=== PATIENT | female | born 1955 | race Two or more races ===

== ENCOUNTER → 2024-07-26 | Outpatient (CLI) | payer OTHER, SELFPAY ==
[2024-07-26 08:41] LABS: Eosinophils # (Auto) 0.1 Thou/mm3 (0.0-0.5); Hematocrit 22.3 % (36.0-46.0); Immature Granulocytes Auto 0.01 Thou/mm3 (0.00-0.00); Mean Corpuscular HGB Conc 28.7 g/dl (31.0-37.0); Mean Corpuscular Volume 73 fL (80-100); Monocytes # (Auto) 0.5 Thou/mm3 (0.0-0.8); Monocytes % (Auto) 9 % (0-12); Platelet Count 211 Thou/mm3 (140-440); RDW Standard Deviation 48.3 fL (36.4-46.3); Red Blood Count 3.05 Miln/mm3 (4.00-5.20)
[2024-07-26 08:43] LABS: Basophils # (Auto) 0.1 Thou/mm3 (0.0-0.2); Basophils % (Auto) 2 % (0-2.5); Eosinophils % (Auto) 3 % (0-10); Immature Granulocytes % (Auto) 0 % (0-0); Lymphocytes # (Auto) 1.6 Thou/mm3 (1.0-4.8); Lymphocytes % (Auto) 32 % (10-50); Neutrophils # (Auto) 2.8 Thou/mm3 (1.8-7.7); Neutrophils % (Auto) 55 % (37-80); Nucleated Red Blood Cell % 0 /100 WBC (0)
[2024-07-26 08:54] LABS: Alanine Aminotransferase 14 U/L (10-49); Albumin/Globulin Ratio 1.5 (1.2-2.2); Alkaline Phosphatase 127 U/L (46-116); Anion Gap 9 (7-16); Aspartate Amino Transferase 22 U/L (0-34); BUN/Creatinine Ratio 18 Ratio (12-20); Bilirubin,Total 0.9 mg/dL (0.3-1.2); Blood Urea Nitrogen 18 mg/dL (9-23); Calcium 8.8 mg/dL (8.3-10.6); Calcium (Corrected) 8.8 mg/dL (8.5-10.1); Carbon Dioxide 24.5 mMol/L (20.0-31.0); Chloride 105 mMol/L (98-107); Globulin 2.7 gm/dL (2.3-3.5); Glucose 143 mg/dL (74-106); Osmolality,Calculated 279 (275-295); Potassium 4.2 mMol/L (3.4-5.1); Sodium 138 mMol/L (136-145); Total Protein 6.7 gm/dL (5.7-8.2); eGFR > 60 See Note
[2024-07-26 08:58] LABS: Hemoglobin 6.4 g/dL (12.0-16.0)
== END | disposition home or self-care (01) ==
PROVIDERS: PCP Nurse Practitioner Family; Referring Provider Physician Assistant; Visit Provider Physician Assistant
DX: C50.412 Malignant neoplasm of upper-outer quadrant of left female breast (principal)
CPT/HCPCS: 36415; 80053; 85025

== ENCOUNTER 2024-07-27 06:58 | Outpatient (RCR) | payer OTHER, SELFPAY | END 2024-07-30 23:59 | disposition home or self-care (01) | LOC: SCTC 06:58 | PROVIDERS: PCP Nurse Practitioner Family; Referring Provider Nurse Practitioner Family; Visit Provider Internal Medicine Hematology & Oncology | DX: D50.9 Iron deficiency anemia, unspecified (principal); Z85.3 Personal history of malignant neoplasm of breast; Z90.12 Acquired absence of left breast and nipple; M85.88 Other specified disorders of bone density and structure, other site | CPT/HCPCS: 36415; 36430; 86850; 86870; 86900; 86901; 86921; 86922; 86923; P9016 ==

== ENCOUNTER → 2024-08-26 | Outpatient (CLI) | payer OTHER, SELFPAY ==
[2024-08-26 09:17] LABS: Basophils # (Auto) 0.1 Thou/mm3 (0.0-0.2); Basophils % (Auto) 2 % (0-2.5); Eosinophils # (Auto) 0.2 Thou/mm3 (0.0-0.5); Eosinophils % (Auto) 3 % (0-10); Hematocrit 28.9 % (36.0-46.0); Immature Granulocytes % (Auto) 0 % (0-0); Immature Granulocytes Auto 0.01 Thou/mm3 (0.00-0.00); Immature Reticulocyte Fraction 24.8 % (3.0-15.9); Lymphocytes # (Auto) 1.6 Thou/mm3 (1.0-4.8); Lymphocytes % (Auto) 33 % (10-50); Mean Corpuscular HGB Conc 29.1 g/dl (31.0-37.0); Mean Corpuscular Hemoglobin 23.7 pg (25.0-35.0); Mean Corpuscular Volume 82 fL (80-100); Monocytes # (Auto) 0.4 Thou/mm3 (0.0-0.8); Monocytes % (Auto) 9 % (0-12); Neutrophils # (Auto) 2.4 Thou/mm3 (1.8-7.7); Neutrophils % (Auto) 52 % (37-80); Nucleated Red Blood Cell % 0 /100 WBC (0); Platelet Count 263 Thou/mm3 (140-440); RDW Standard Deviation 62.4 fL (36.4-46.3); Red Blood Count 3.54 Miln/mm3 (4.00-5.20); Reticulocyte % (Auto) 2.9 % (0.5-1.5); Reticulocyte Absolute Auto 102.7 Biln/L (25.0-75.0); Reticulocyte Hgb Content 28.3 pg (28.0-35.0); White Blood Count 4.7 Thou/mm3 (3.6-11.0)
[2024-08-26 09:25] LABS: Alanine Aminotransferase 23 U/L (10-49); Albumin, Serum 3.9 gm/dL (3.4-4.8); Albumin/Globulin Ratio 1.9 (1.2-2.2); Alkaline Phosphatase 115 U/L (46-116); Anion Gap 7 (7-16); Aspartate Amino Transferase 19 U/L (0-34); BUN/Creatinine Ratio 17 Ratio (12-20); Bilirubin,Total 0.8 mg/dL (0.3-1.2); Blood Urea Nitrogen 17 mg/dL (9-23); Calcium 8.9 mg/dL (8.3-10.6); Carbon Dioxide 26.5 mMol/L (20.0-31.0); Chloride 106 mMol/L (98-107); Globulin 2.1 gm/dL (2.3-3.5); Glucose 139 mg/dL (74-106); Osmolality,Calculated 281 (275-295); Potassium 4.3 mMol/L (3.4-5.1); Sodium 139 mMol/L (136-145); eGFR > 60 See Note
[2024-08-26 09:28] LABS: Vitamin B12 1447 pg/mL (211-911)
[2024-08-26 09:45] LABS: Ferritin 38 ng/mL (7.3-270.7); Iron 25 mcg/dL (50-170); Percent Iron Saturation 7 % (20-55); Total Iron Binding Capacity 338 mcg/dL (250-425); Unsaturated Iron Binding 313 (225-295)
[2024-08-26 10:27] LABS: Hemoglobin 8.4 g/dL (12.0-16.0)
== END | disposition home or self-care (01) ==
LOC: COPL 08:02
PROVIDERS: PCP Nurse Practitioner Family; Referring Provider Nurse Practitioner Family; Visit Provider Nurse Practitioner Family
DX: C50.412 Malignant neoplasm of upper-outer quadrant of left female breast (principal)
CPT/HCPCS: 36415; 80053; 82607; 82728; 82746; 83540; 83550; 85025; 85046

== ENCOUNTER 2024-08-29 11:28 | Outpatient (RCR) | payer OTHER, SELFPAY | END 2024-08-30 23:59 | disposition home or self-care (01) | LOC: SCTC 11:28 | PROVIDERS: PCP Nurse Practitioner Family; Referring Provider Nurse Practitioner Family; Visit Provider Internal Medicine Hematology & Oncology | DX: D50.9 Iron deficiency anemia, unspecified (principal); C50.412 Malignant neoplasm of upper-outer quadrant of left female breast; Z17.0 Estrogen receptor positive status [ER+]; Z17.21 Progesterone receptor positive status; Z17.32 Human epidermal growth factor receptor 2 negative status; Z92.3 Personal history of irradiation; Z92.21 Personal history of antineoplastic chemotherapy; Z79.811 Long term (current) use of aromatase inhibitors; M85.88 Other specified disorders of bone density and structure, other site | CPT/HCPCS: 96365; 96366; 96375; 99212; J2916; J2919; J3490; G0463 ==

== ENCOUNTER → 2024-09-14 | Outpatient (CLI) | payer OTHER, SELFPAY ==
--- NOTE | 2024-09-14 09:00 | XR_ITS ---
Examination: Breast ultrasound, unilateral, right Date and time of exam: September 14, 2024 0915 hours INDICATIONS: Personal history left breast cancer lumpectomy 2017, mammogram January 07, 2024 focal asymmetry inner right breast 4.4 cm from the nipple, measuring 10 mm on mammogram November 18, 2023 Technique: Real-time blanco scale ultrasonographic imaging performed right breast including all 4 quadrants as well as nipple retroareolar and axillary region. Findings: No cystic or solid mass IMPRESSION: BI-RADS Category 1: Negative study
--- NOTE | 2024-09-14 09:30 | XR_ITS ---
Examination: Diagnostic digital mammography, unilateral, right Computer aided detection 3-D breast Tomosynthesis, unilateral Date and time of exam: September 14, 2024 0926 hours INDICATIONS: Mammogram November 18, 2023 10 mm focal asymmetry inner right breast CC view, 4.4 cm from the nipple Technique: Nonmagnified MLO, CC views of the right breast have been obtained, reconstructed from 3-D Tomosynthesis images. R2 computer aided detection program utilized for evaluation of suspicious masses and/or abnormal calcifications. 3-D Tomosynthesis images obtained. Findings: The breast is heterogeneously dense, which may obscure small masses Stable focal asymmetry inner right breast No interval suspicious masses Impression: BI-RADS category 2: Benign findings Return to yearly follow-up mammography
== END | disposition home or self-care (01) ==
LOC: CDIM 08:56
PROVIDERS: PCP Family Medicine; Referring Provider Nurse Practitioner Family; Visit Provider Nurse Practitioner Family
DX: R92.323 Mammographic fibroglandular density, bilateral breasts (principal); C50.412 Malignant neoplasm of upper-outer quadrant of left female breast
CPT/HCPCS: 76641; 77061; 77065; G0279

== ENCOUNTER → 2024-09-27 | Outpatient (CLI) | payer OTHER, SELFPAY ==
[2024-09-27 16:46] LABS: Basophils # (Auto) 0.1 Thou/mm3 (0.0-0.2); Basophils % (Auto) 2 % (0-2.5); Eosinophils # (Auto) 0.2 Thou/mm3 (0.0-0.5); Eosinophils % (Auto) 4 % (0-10); Hematocrit 23.3 % (36.0-46.0); Immature Granulocytes % (Auto) 0 % (0-0); Immature Granulocytes Auto 0.01 Thou/mm3 (0.00-0.00); Lymphocytes # (Auto) 1.6 Thou/mm3 (1.0-4.8); Lymphocytes % (Auto) 34 % (10-50); Mean Corpuscular HGB Conc 28.8 g/dl (31.0-37.0); Mean Corpuscular Hemoglobin 21.5 pg (25.0-35.0); Mean Corpuscular Volume 75 fL (80-100); Monocytes # (Auto) 0.6 Thou/mm3 (0.0-0.8); Monocytes % (Auto) 12 % (0-12); Neutrophils # (Auto) 2.4 Thou/mm3 (1.8-7.7); Neutrophils % (Auto) 49 % (37-80); Nucleated Red Blood Cell % 0 /100 WBC (0); Platelet Count 227 Thou/mm3 (140-440); RDW Standard Deviation 47.8 fL (36.4-46.3); Red Blood Count 3.11 Miln/mm3 (4.00-5.20); White Blood Count 4.8 Thou/mm3 (3.6-11.0)
[2024-09-27 17:42] LABS: Hemoglobin 6.7 g/dL (12.0-16.0)
== END | disposition home or self-care (01) ==
LOC: SCTO 15:28
PROVIDERS: PCP Nurse Practitioner Family; Referring Provider Nurse Practitioner Family; Visit Provider Nurse Practitioner Family
DX: C50.412 Malignant neoplasm of upper-outer quadrant of left female breast (principal)
CPT/HCPCS: 36415; 85025

== ENCOUNTER 2024-09-29 07:47 | Outpatient (RCR) | payer OTHER, SELFPAY | END 2024-09-30 23:59 | disposition home or self-care (01) | LOC: SCTC 07:47 | PROVIDERS: PCP Family Medicine; Referring Provider Family Medicine; Visit Provider Nurse Practitioner Family | DX: D50.9 Iron deficiency anemia, unspecified (principal); C50.412 Malignant neoplasm of upper-outer quadrant of left female breast; Z17.0 Estrogen receptor positive status [ER+]; Z17.21 Progesterone receptor positive status; Z17.32 Human epidermal growth factor receptor 2 negative status; Z90.12 Acquired absence of left breast and nipple; Z79.811 Long term (current) use of aromatase inhibitors; Z87.19 Personal history of other diseases of the digestive system; M85.88 Other specified disorders of bone density and structure, other site | CPT/HCPCS: 36430; 86850; 86900; 86901; 86921; 86922; 99212; P9016; G0463 ==

== ENCOUNTER → 2024-10-13 | Outpatient (CLI) | payer OTHER, SELFPAY ==
--- NOTE | 2024-10-13 15:11 | XR_ITS ---
Examination: CT chest, without intravenous contrast. Sagittal and coronal 2-D reconstructions. Exam date and time: October 13, 2024 1543 hours Comparison March 17, 2024 INDICATIONS: Diagnosis malignant neoplasm upper outer quadrant left female breast, bilateral pulmonary nodules, 17 mm spiculated mass lateral left breast on CT study March 17, 2024 CTDI:vol (mGy) 25.3 DLP: (mGycm) 856 Technique: Multiple 3.0 mm axial sections of the chest to been obtained. Bone and lung density settings are obtained. Sagittal and coronal 2-D reconstructions have been obtained. Low dose protocols were performed. One or more of the following dose reduction techniques were used; automated exposure control, adjustment of the mA and/or KV according to patient size, use of iterative reconstruction technique. Findings: Posttreatment skin thickening left breast Stable 17 mm spiculated mass lateral left breast No interval axillary lymphadenopathy No thoracic aortic aneurysmal dilatation Pulmonary artery segments are not enlarged 5 additional 2 to 3 mm bilateral pulmonary nodules compared to the prior study The existing pulmonary nodules do not show increase in size No pneumonia or pulmonary edema No focal liver or splenic lesion Gallstones No pancreatic mass IMPRESSION: Interval 5 additional 2 to 3 mm bilateral pulmonary nodules compared to the prior study, recommend continued 6 month follow-up CT chest without contrast
== END | disposition home or self-care (01) ==
LOC: CCTX 14:57
PROVIDERS: PCP Family Medicine; Referring Provider Nurse Practitioner Family; Visit Provider Nurse Practitioner Family
DX: R91.8 Other nonspecific abnormal finding of lung field (principal); C50.412 Malignant neoplasm of upper-outer quadrant of left female breast
CPT/HCPCS: 71250

== ENCOUNTER → 2024-11-01 | Outpatient (CLI) | payer OTHER, SELFPAY ==
[2024-11-01 08:37] LABS: Basophils # (Auto) 0.1 Thou/mm3 (0.0-0.2); Basophils % (Auto) 2 % (0-2.5); Eosinophils # (Auto) 0.2 Thou/mm3 (0.0-0.5); Eosinophils % (Auto) 5 % (0-10); Hematocrit 24.5 % (36.0-46.0); Immature Granulocytes % (Auto) 0 % (0-0); Immature Granulocytes Auto 0.01 Thou/mm3 (0.00-0.00); Immature Reticulocyte Fraction 21.8 % (3.0-15.9); Lymphocytes # (Auto) 1.4 Thou/mm3 (1.0-4.8); Lymphocytes % (Auto) 33 % (10-50); Mean Corpuscular HGB Conc 29.8 g/dl (31.0-37.0); Mean Corpuscular Hemoglobin 22.3 pg (25.0-35.0); Mean Corpuscular Volume 75 fL (80-100); Monocytes # (Auto) 0.6 Thou/mm3 (0.0-0.8); Monocytes % (Auto) 13 % (0-12); Neutrophils # (Auto) 1.9 Thou/mm3 (1.8-7.7); Neutrophils % (Auto) 46 % (37-80); Nucleated Red Blood Cell % 0 /100 WBC (0); Platelet Count 215 Thou/mm3 (140-440); RDW Standard Deviation 48.6 fL (36.4-46.3); Red Blood Count 3.27 Miln/mm3 (4.00-5.20); Reticulocyte % (Auto) 1.7 % (0.5-1.5); Reticulocyte Absolute Auto 54.9 Biln/L (25.0-75.0); Reticulocyte Hgb Content 18.7 pg (28.0-35.0); White Blood Count 4.2 Thou/mm3 (3.6-11.0)
[2024-11-01 08:50] LABS: Hemoglobin 7.3 g/dL (12.0-16.0)
[2024-11-01 09:04] LABS: Alanine Aminotransferase 24 U/L (10-49); Albumin, Serum 3.7 gm/dL (3.4-4.8); Albumin/Globulin Ratio 1.7 (1.2-2.2); Alkaline Phosphatase 116 U/L (46-116); Anion Gap 7 (7-16); Aspartate Amino Transferase 34 U/L (0-34); BUN/Creatinine Ratio 19 Ratio (12-20); Bilirubin,Total 0.6 mg/dL (0.3-1.2); Blood Urea Nitrogen 17 mg/dL (9-23); Calcium 8.8 mg/dL (8.3-10.6); Carbon Dioxide 25.6 mMol/L (20.0-31.0); Chloride 109 mMol/L (98-107); Creatinine (Component) 0.9 mg/dL (0.6-1.3); Globulin 2.2 gm/dL (2.3-3.5); Glucose 127 mg/dL (74-106); Osmolality,Calculated 286 (275-295); Potassium 4.5 mMol/L (3.4-5.1); Sodium 142 mMol/L (136-145); Total Protein 5.9 gm/dL (5.7-8.2); Vitamin B12 903 pg/mL (211-911); eGFR > 60 See Note
[2024-11-01 09:48] LABS: Total Iron Binding Capacity 353 mcg/dL (250-425)
[2024-11-01 14:37] LABS: Iron 13 mcg/dL (50-170); Percent Iron Saturation 3 % (20-55); Unsaturated Iron Binding 340 (225-295)
== END | disposition home or self-care (01) ==
LOC: COPL 07:42
PROVIDERS: PCP Family Medicine; Referring Provider Specialist; Visit Provider Specialist
DX: D50.0 Iron deficiency anemia secondary to blood loss (chronic) (principal); R10.13 Epigastric pain; R53.83 Other fatigue
CPT/HCPCS: 36415; 80053; 82607; 83540; 83550; 85025; 85046

== ENCOUNTER 2024-11-02 14:52 | Emergency (ER) | payer OTHER, SELFPAY ==
[2024-11-02 15:31] VITALS: BP 180/69; PULSE 94; RESP 20; TEMP 37.4; O2SAT 97
--- NOTE | 2024-11-02 15:34 | XR_ITS ---
Examination: PA lateral chest 2 views TECHNIQUE: Upright PA lateral chest 2 views Exam date and time: November 02, 2024 1540 hours INDICATIONS: Coughing beginning 3 days ago. FINDINGS: Scar formation versus early pneumonia in the lingular segment left upper lobe obscuring detail lateral left cardiac contour Right lung clear Normal heart size IMPRESSION: Scarring versus early pneumonia in the lingular segment left upper lobe, clinical correlation advised
--- NOTE | 2024-11-02 15:36 | PD.EDRME ---
Rapid Medical Screening Exam [facility] Arrival date/time: 11/02/24 14:52 69-year-old female with a history of hypertension and iron deficiency anemia presents to the emergency room with a chief complaint of congestion, cough x 3 days. Patient states she is also anemic and was sent to her net development manager who nalini her blood yesterday. Patient states she has a history of blood transfusions and states she believes her weakness and fatigue can be because of this. I have greeted and performed a focused initial assessment of this patient. A comprehensive ED assessment and evaluation of the patient, analysis of all test results, and completion of the medical decision making process will be conducted by additional ED providers. Chief Complaint: Flu Like Symptoms Vital signs: Vital Signs Temperature 99.4 F 11/02/24 15:31 Pulse Rate 94 11/02/24 15:31 Respiratory Rate 20 11/02/24 15:31 Blood Pressure 180/69 H 11/02/24 15:31 Pulse Oximetry (%) 97 11/02/24 15:31 Oxygen Delivery Method Room Air 11/02/24 15:31 Vital signs reviewed by provider: Yes
[2024-11-02 16:12] LABS: Basophils # (Auto) 0.1 Thou/mm3 (0.0-0.2); Basophils % (Auto) 2 % (0-2.5); Eosinophils # (Auto) 0.2 Thou/mm3 (0.0-0.5); Eosinophils % (Auto) 4 % (0-10); Hematocrit 25.5 % (36.0-46.0); Immature Granulocytes % (Auto) 0 % (0-0); Immature Granulocytes Auto 0.01 Thou/mm3 (0.00-0.00); Lymphocytes # (Auto) 1.2 Thou/mm3 (1.0-4.8); Lymphocytes % (Auto) 27 % (10-50); Mean Corpuscular Hemoglobin 21.6 pg (25.0-35.0); Mean Corpuscular Volume 75 fL (80-100); Monocytes # (Auto) 0.4 Thou/mm3 (0.0-0.8); Monocytes % (Auto) 9 % (0-12); Neutrophils # (Auto) 2.6 Thou/mm3 (1.8-7.7); Neutrophils % (Auto) 59 % (37-80); Nucleated Red Blood Cell % 0 /100 WBC (0); Platelet Count 230 Thou/mm3 (140-440); RDW Standard Deviation 48.3 fL (36.4-46.3); Red Blood Count 3.42 Miln/mm3 (4.00-5.20); White Blood Count 4.4 Thou/mm3 (3.6-11.0)
[2024-11-02 16:14] LABS: Hemoglobin 7.4 g/dL (12.0-16.0)
[2024-11-02 16:27] LABS: Partial Thromboplastin Time 26.5 Seconds (22.0-36.0); Prothrombin Time 10.8 Seconds (9.0-12.2)
[2024-11-02 16:30] LABS: Alanine Aminotransferase 24 U/L (10-49); Albumin, Serum 3.9 gm/dL (3.4-4.8); Albumin/Globulin Ratio 1.4 (1.2-2.2); Alkaline Phosphatase 134 U/L (46-116); Anion Gap 6 (7-16); Aspartate Amino Transferase 29 U/L (0-34); BUN/Creatinine Ratio 19 Ratio (12-20); Bilirubin,Total 0.5 mg/dL (0.3-1.2); Blood Urea Nitrogen 17 mg/dL (9-23); Calcium 8.9 mg/dL (8.3-10.6); Carbon Dioxide 25.7 mMol/L (20.0-31.0); Chloride 108 mMol/L (98-107); Creatinine (Component) 0.9 mg/dL (0.6-1.3); Globulin 2.7 gm/dL (2.3-3.5); Glucose 174 mg/dL (74-106); Osmolality,Calculated 284 (275-295); Potassium 4.7 mMol/L (3.4-5.1); Sodium 140 mMol/L (136-145); Total Protein 6.6 gm/dL (5.7-8.2); eGFR > 60 See Note
[2024-11-02 17:22] VITALS: BP 153/59; PULSE 85; RESP 20; TEMP 37.4; O2SAT 97
--- NOTE | 2024-11-02 17:30 | EDNOTE_ITS ---
Upper Respiratory Inf. RME/HPI General Chief Complaint: Flu Like Symptoms Stated Complaint: REAL BAD CONGESTION X 3 DAYS Time Seen by Provider: 11/02/24 15:40 Source: patient Arrival date/time: 11/02/24 14:52 69-year-old female with past medical history of hypertension and anemia presents emergency department complaining of nasal congestion and cough for 3 days. Patient denies any fever, chills, dark tarry stools, rectal bleeding, hematemesis, or any other associated symptom. Mode of arrival: ambulatory Limitations: no limitations RME / HPI RME / HPI Narrative: 11/02/24 14:52 69-year-old female with a history of hypertension and iron deficiency anemia presents to the emergency room with a chief complaint of congestion, cough x 3 days. Patient states she is also anemic and was sent to her international account manager who nalini her blood yesterday. Patient states she has a history of blood transfusions and states she believes her weakness and fatigue can be because of this. I have greeted and performed a focused initial assessment of this patient. A comprehensive ED assessment and evaluation of the patient, analysis of all test results, and completion of the medical decision making process will be conducted by additional ED providers. Related Data Home Medications ?Medication ?Instructions ?Recorded ?Confirmed diltiazem HCl 240 mg 240 mg PO DAILY 05/14/2206/24 capsule,extended release 24 hr letrozole 2.5 mg tablet (Femara) 2.5 tab PO QDAY 05/1411/07/24 losartan 25 mg tablet 25 mg PO QDAY 05/06/2411/07 Previous Rx's ?Medication ?Instructions ?Recorded ferrous sulfate 324 mg (65 mg 324 mg PO BID #60 tabs 0 04/09/24 iron) tablet,delayed release acetaminophen 500 mg capsule 500 mg PO Q6H PRN pain #3 0 caps 11/02/24 benzonatate 100 mg capsule 100 mg PO BID PRN cough #20 caps 11/02/24 fluticasone propionate 50 1 spray intranasal QDAY #16 grams 11/02/24 mcg/actuation nasal spray,suspension (Flonase Allergy Relief) Allergies Allergy/AdvReac Type Severity Reaction Status Date / Time No Known Allergies Allergy Verified 11/25/24 10:30 Review of Systems Review of Systems Systems Reviewed: All systems reviewed, normal except as documented Constitutional Constitutional: Reports system reviewed and no additional complaints, except as documented, Denies body ache(s), Denies chills and Denies fever(s) Eyes Eyes: Reports system reviewed and no additional complaints, except as documented and Denies change in vision ENT Ears, Nose, Mouth, and Throat: Reports system reviewed and no additional complaints, except as documented, Denies disequilibrium, Denies dizziness, Reports nasal congestion, Denies sore throat and Denies vertigo Cardiovascular Cardiovascular: Reports system reviewed and no additional complaints, except as documented, Denies chest pain and Denies dyspnea Respiratory Respiratory: Reports system reviewed and no additional complaints, except as documented, Denies chest congestion, Reports cough and Denies dyspnea Gastrointestinal Gastrointestinal: Reports system reviewed and no additional complaints, except as documented, Denies abdominal pain, Denies nausea and Denies vomiting Musculoskeletal Musculoskeletal: Reports system reviewed and no additional complaints, except as documented, Denies abnormal gait and Denies arthralgias Integumentary/Breasts Skin/Breast: Reports system reviewed and no additional complaints, except as documented, Denies erythema, Denies rash and Denies wounds Neurologic Neurologic: Reports system reviewed and no additional complaints, except as documented, Denies abnormal gait, Denies disequilibrium, Denies dizziness and Denies vertigo Past Medical History Past Medical History NEUROLOGIC: Negative Neurological Disorders or Seizures CARDIAC: Positive Cardiac Disorders and Hypertension; Negative Congestive Heart Failure RESPIRATORY: Positive Sleep Apnea (uses cpap); Negative Chronic Obstructive Pulmonary Disease (COPD) GASTROINTESTINAL: Positive Gastrointestinal Disorders, Gastrointestinal Bleed and Obesity; Negative Hepatitis GENITOURINARY: Negative Genitourinary Disorders or Renal Disease REPRODUCTIVE: Positive Breast Cancer (Left breast) and Previous Pregnancies MUSCULOSKELETAL: Negative Musculoskeletal Disorders ENDOCRINE: Negative Endocrine Disorders, Diabetes Mellitus Type 1 or Diabetes Mellitus Type 2 HEMATOLOGIC: Positive Blood Disorders and Anemia (Unexplained iron deficiency) OTHER HISTORY: Positive Blood Transfusions, Chemotherapy (2018), Radiation Therapy (2018), Cancer and Breast Cancer (Left breast); Negative Hospitalization, Autoimmune Disease, Falls, Blood Transfusion Reaction, Anesthesia Reactions, Organ Transplant, Hyperbaric Therapy, MRSA, VRSA, Vancomycin-Resistant Enterococci, Human Immunodeficiency Virus (HIV), Chicken Pox, Measles, Mumps, Rubella (Icelandic Measles), Pertussis or Clostridium Difficile Family History FAMILY HISTORY: Positive Family Respiratory Disorders, Family Cardiac Disorders, Family Cancer (PT'S AUNT BREAST CANCER, PT'S BROTHER LEUKEMIA) and Family Surgery; Negative Family Psychiatric Problems, Family Gastrointestinal Problems or Family Anesthesia Reaction Surgical History SURGICAL: Positive Lumpectomy (left breast with lymph node dissection of 3 nodes); Negative Cardiac Surgery, Endocrine Surgery, Thyroidectomy, Ear Surgery, Abdominal Surgery or Organ Transplant Social History SMOKING STATUS: Never smoker ED Exam General Limitations: Present no limitations General appearance: Present alert and in no apparent distress Head Head exam: Present atraumatic Eye Eye exam: Present normal appearance, PERRL and EOMI ENT ENT exam: Present normal exam, normal oropharynx and mucous membranes moist Neck Neck exam: Present normal inspection, full ROM and trachea midline Chest Chest inspection: Present normal inspection and symmetric chest wall rise Respiratory Respiratory exam: Present normal lung sounds bilaterally Cardiovascular Cardiovascular exam: Present regular rate, normal rhythm and normal heart sounds Abdominal Exam Abdominal exam: Present soft and normal bowel sounds Extremities Exam Extremities exam: Present normal inspection and full ROM Back Exam Back exam: Present normal inspection and full ROM Neurological Exam Neurological exam: Present alert, oriented X3 and CN II-XII intact Psychiatric Psychiatric exam: Present normal affect and normal mood Skin Skin exam: Present warm, dry, intact and normal color Course Quality Measures none Orders Category Date Time Status Bedside COVID-19 Antigen Test NOW Care 11/02/24 15:34 Completed Bedside Influenza A&B Antigen Test NOW Care 11/02/24 15:34 Completed XR chest 2V Stat Exams 11/02/24 15:34 Completed Antibody Identification Stat Lab 11/02/24 15:51 Completed CBC Stat Lab 11/02/24 15:51 Completed CMP [Comprehensive Metabolic Panel] Stat Lab 11/02/24 15:51 Completed PT [Prothrombin Time with INR] Stat Lab 11/02/24 15:51 Completed PTT [Partial Thromboplastin Time] Stat Lab 11/02/24 15:51 Completed Type and Screen Stat Lab 11/02/24 15:51 Completed Vital Signs Vital signs: Vital Signs Temperature 99.4 F 11/02/24 15:31 Pulse Rate 94 11/02/24 15:31 Respiratory Rate 20 11/02/24 15:31 Blood Pressure 180/69 H 11/02/24 15:31 Pulse Oximetry (%) 97 11/02/24 15:31 Oxygen Delivery Method Room Air 11/02/24 15:31 97% RA WNL Upper Respiratory Infection MDM Narrative MDM Narrative:: 69-year-old female with past medical history of hypertension and anemia presents emergency department complaining of nasal congestion and cough for 3 days. Patient denies any fever, chills, dark tarry stools, rectal bleeding, hematemesis, or any other associated symptom. CBC hgb 7.4. CMP unremarkable. Chest XR no pneumonic infiltrates. Patient not in any visible respiratory distress. Likely viral infection. Stable for close f/u with pcp. Patient data External records reviewed:: [facility] previous records Clinical information provided by:: patient Social determinants that could affect healthcare access:: none Patient has the following chronic illnesses:: see chart How is presenting disease/condition affected by chronic disease/condition?: uneffected by Evaluation data The following diagnostics were reviewed and interpreted by me:: lab results and radiology exam(s) Lab and/or radiology exams considered but not ordered:: ordered Interpretation Summary: interpreted by me Medications / Prescriptions Medications or Prescriptions considered but not ordered:: n/a Medication administrations:: n/a Consultations Consultation(s) initiated? (list below): No Diagnosis Upper Respiratory Differential Diagnosis: upper respiratory infection, otitis media, sinusitis, viral infection, bronchitis, influenza and pharyngitis Most likely diagnosis given after review of the tests above:: viral infection Admission Indicated Admission indicated?: not indicated Admission Request Was there a request for admission?: No Disposition Plan Disposition Plan: Discharge Discharge Attestation Discharge Attestation: The patient and all family members were given an opportunity to ask questions and understood the discharge instructions. Discharge instructions specifically effects, indications for sooner follow up or return to the emergency department, and the expected course of current diagnosis. Patient condition: Stable Discharge Plan Plan Patient Disposition: HOME (Self Care) Disposition Comment: Stable Prescriptions/Referrals Prescriptions/Med Rec: New benzonatate 100 mg capsule 100 mg PO BID PRN (Reason: cough) Qty: 20 0RF acetaminophen 500 mg capsule 500 mg PO Q6H PRN (Reason: pain) Qty: 30 0RF fluticasone propionate [Flonase Allergy Relief] 50 mcg/actuation spray,suspension 1 spray intranasal QDAY Qty: 16 0RF Rx Instructions: administer into each nostril No Action ferrous sulfate 324 mg (65 mg iron) tablet,delayed release (DR/EC) 324 mg PO BID Qty: 60 0RF diltiazem HCl 240 mg capsule,extended release 24hr 240 mg PO DAILY letrozole [Femara] 2.5 mg tablet 2.5 tab PO QDAY losartan 25 mg tablet 25 mg PO QDAY Referrals: [place] PACKAGE LINE OPERATOR [Primary Care Provider] - In 1 week Problem List Clinical Impression: Viral infection Patient/Caregiver Discharge Instructions Discharge Activity: activity as tolerated Education Materials: ED Viral Syndrome (Adult) Additional Instructions: Drink fluids as tolerated. Take Tylenol as needed for pain. Take medication as prescribed. Close follow-up with primary care provider in 2 to 3 days. Return to emergency department for any worsening symptoms or as needed. Print Language: [place] Islander Stand Alone Forms: [facility] Award Info., Patient Portal Info Letter PA/CORRESPONDENCE REPRESENTATIVE Supervising Physician PA/FIDELIA Supervising Physician: Dr. Tripp
== END 2024-11-02 17:47 | disposition home or self-care (01) ==
PROVIDERS: Nurse Practitioner Family; Emergency Provider Emergency Medicine; PCP Nurse Practitioner Family
DX: B34.9 Viral infection, unspecified (principal)
CPT/HCPCS: 36415; 71046; 80053; 85025; 85610; 85730; 86850; 86870; 86900; 86901; 87400; 87811; 99283

== ENCOUNTER 2024-11-07 12:00 | Day surgery (SDC) | payer OTHER, SELFPAY ==
[2024-11-07] VITALS (9 sets, daily range): BP systolic 139–191; BP diastolic 65–84; PULSE 71–108; RESP 16–22; TEMP 36.4–37.1; O2SAT 92–100; BMI 47.0
[2024-11-07] MEDS: SODIUM CHLORIDE 0.9% 500 ML 500 ML 20 ML IV (14:16)
[2024-11-07] MEDS: fentaNYL CIT INJ 50 mCg/ML AMP 2ML (ASD USE ONLY) IV (14:20)
[2024-11-07] MEDS: MIDAZOLAM INJ 1 MG/ML VIAL 2 ML (ASD USE ONLY) 2 MG IV (14:20)
[2024-11-07] MEDS: DiphenhydrAMINE INJ 50 MG/ML VIAL 25 MG IV (14:20)
[2024-11-07] MEDS: ONDANSETRON INJ 2 MG/ML INJ 2 ML 4 MG IV (14:25)
[2024-11-07] MEDS: SODIUM CHLORIDE RT SOL 0.9% 3 ML NEBU INH (14:35)
[2024-11-07] MEDS: ALBUTEROL RT 2.5 MG/0.5 ML NEBU INH (14:35)
== END 2024-11-07 15:15 | disposition home or self-care (01) ==
PROVIDERS: PCP Nurse Practitioner Family; Referring Provider Specialist; Visit Provider Specialist
PROC: (CPT 43239; principal; 2024-11-07 13:00)
DX: K31.89 Other diseases of stomach and duodenum (principal)
CPT/HCPCS: 43239; J1200; J2250; J2405; J3010; J7040

== ENCOUNTER 2024-11-25 10:27 | Emergency (ER) | payer OTHER, SELFPAY ==
[2024-11-25] VITALS (13 sets, daily range): BP systolic 149–184; BP diastolic 56–81; PULSE 76–94; RESP 16–20; TEMP 36.7–37.3; O2SAT 97–100; BMI 47.5
--- NOTE | 2024-11-25 11:04 | PD.EDRME ---
Rapid Medical Screening Exam [facility] Arrival date/time: 11/25/24 10:27 69-year-old female presents to the emergency department with complaints of low hemoglobin. History of blood transfusion sent over by cancer treatment center for evaluation. I have greeted and performed a focused initial assessment of this patient. Initial appropriate labs ordered at this time. A comprehensive ED assessment and evaluation of the patient and analysis of all test and completion of medical decision making process will be conducted by additional ED provider. Chief Complaint: Recheck/Abnormal Lab/Rx Time Seen by Provider: 11/25/24 10:38 Vital signs: Vital Signs Temperature 98.5 F 11/25/24 10:48 Pulse Rate 94 11/25/24 10:48 Respiratory Rate 20 11/25/24 10:48 Blood Pressure 153/70 H 11/25/24 10:48 Pulse Oximetry (%) 97 11/25/24 10:48 Oxygen Delivery Method Room Air 11/25/24 10:48
[2024-11-25 11:44] LABS: Basophils # (Auto) 0.1 Thou/mm3 (0.0-0.2); Basophils % (Auto) 2 % (0-2.5); Eosinophils # (Auto) 0.2 Thou/mm3 (0.0-0.5); Eosinophils % (Auto) 4 % (0-10); Immature Granulocytes % (Auto) 0 % (0-0); Immature Granulocytes Auto 0.02 Thou/mm3 (0.00-0.00); Lymphocytes # (Auto) 1.7 Thou/mm3 (1.0-4.8); Lymphocytes % (Auto) 32 % (10-50); Mean Corpuscular HGB Conc 29.1 g/dl (31.0-37.0); Mean Corpuscular Hemoglobin 20.2 pg (25.0-35.0); Mean Corpuscular Volume 70 fL (80-100); Monocytes # (Auto) 0.5 Thou/mm3 (0.0-0.8); Monocytes % (Auto) 9 % (0-12); Neutrophils # (Auto) 2.8 Thou/mm3 (1.8-7.7); Neutrophils % (Auto) 54 % (37-80); Nucleated Red Blood Cell % 0 /100 WBC (0); Platelet Count 251 Thou/mm3 (140-440); RDW Standard Deviation 43.7 fL (36.4-46.3); Red Blood Count 2.82 Miln/mm3 (4.00-5.20); White Blood Count 5.3 Thou/mm3 (3.6-11.0)
[2024-11-25 11:47] LABS: Hematocrit 19.6 % (36.0-46.0)
[2024-11-25 11:48] LABS: Hemoglobin 5.7 g/dL (12.0-16.0)
[2024-11-25 11:57] LABS: Prothrombin Time 11.2 Seconds (9.0-12.2)
[2024-11-25 12:07] LABS: Alanine Aminotransferase 13 U/L (10-49); Albumin, Serum 3.7 gm/dL (3.4-4.8); Albumin/Globulin Ratio 1.5 (1.2-2.2); Alkaline Phosphatase 116 U/L (46-116); Anion Gap 7 (7-16); Aspartate Amino Transferase 22 U/L (0-34); BUN/Creatinine Ratio 17 Ratio (12-20); Bilirubin,Total 0.8 mg/dL (0.3-1.2); Blood Urea Nitrogen 17 mg/dL (9-23); Calcium 8.7 mg/dL (8.3-10.6); Calcium (Corrected) 8.9 mg/dL (8.5-10.1); Carbon Dioxide 24.4 mMol/L (20.0-31.0); Chloride 108 mMol/L (98-107); Globulin 2.5 gm/dL (2.3-3.5); Glucose 126 mg/dL (74-106); Osmolality,Calculated 281 (275-295); Potassium 4.4 mMol/L (3.4-5.1); Sodium 139 mMol/L (136-145); Total Protein 6.2 gm/dL (5.7-8.2); eGFR > 60 See Note
[2024-11-25 13:49] LABS: OBS Developer Lot # 1-24551749; OBS Performed By MADRG3; OBS QC OK? Yes; Occult Blood, Stool Positive (Negative)
--- NOTE | 2024-11-25 16:32 | PC.NURSE ---
CONSENT FOR BLOOD TRANSFUSION OBTAINED.
--- NOTE | 2024-11-25 17:55 | PD.EDRECHK ---
ED Recheck Abnl Lab Rx-RME/HPI General Chief Complaint: Recheck/Abnormal Lab/Rx Stated Complaint: SENT BY CANCER C[facility] FOR TRANSFUSION Time Seen by Provider: 11/25/24 10:38 Arrival date/time: 11/25/24 10:27 RME / HPI RME / HPI narrative: 11/25/24 10:27 69-year-old female presents to the emergency department with complaints of low hemoglobin. History of blood transfusion sent over by cancer treatment center for evaluation. I have greeted and performed a focused initial assessment of this patient. Initial appropriate labs ordered at this time. A comprehensive ED assessment and evaluation of the patient and analysis of all test and completion of medical decision making process will be conducted by additional ED provider. DR. MORA MAIN ED EVALUATION 69 year old female with history of left breast carcinoma, hypertension, and anemia presents to the ED sent by [facility] for further evaluation and treatment of low hemoglobin today. While in the ED patient has no complaints. Denies fevers, chills, chest pain, cough, shortness of breath, abdominal pain, n/v/d or urinary symptoms. Patient reports she has received a total of 4 blood transfusions before. Related Data Home Medications ?Medication ?Instructions ?Recorded ?Confirmed diltiazem HCl 240 mg 240 mg PO DAILY 05/14/22 11/07/24 capsule,extended release 24 hr letrozole 2.5 mg tablet (Femara) 2.5 tab PO QDAY 05/14/22 11/07/24 losartan 25 mg tablet 25 mg PO QDAY 05/06/24 11/07/24 Previous Rx's ?Medication ?Instructions ?Recorded ferrous sulfate 324 mg (65 mg 324 mg PO BID #60 tabs 04/09/24 iron) tablet,delayed release acetaminophen 500 mg capsule 500 mg PO Q6H PRN pain #30 caps 11/02/24 benzonatate 100 mg capsule 100 mg PO BID PRN cough #20 caps 11/02/24 fluticasone propionate 50 1 spray intranasal QDAY #16 grams 11/02/24 mcg/actuation nasal spray,suspension (Flonase Allergy Relief) Allergies Allergy/AdvReac Type Severity Reaction Status Date / Time No Known Allergies Allergy Verified 11/25/24 10:30 Review of Systems Review of Systems Narrative Review of Systems: GEN: No fever, no chills, no weight loss EYES: No discharge, no visual changes, no pain HEENT: No ear pain, no congestion, no sore throat PULM: No shortness of breath, no cough, no congestion CV: No chest pain, no dyspnea on exertion, no palpitations GI: No nausea, no vomiting, no diarrhea, no pain, no constipation : No frequency, no urgency, no dysuria MUSC/SKEL: No joint pain, no back pain SKIN: No rash NEURO: No weakness, no headache Past Medical History Past Medical History CARDIAC: Positive Cardiac Disorders and Hypertension RESPIRATORY: Positive Sleep Apnea (uses cpap) GASTROINTESTINAL: Positive Gastrointestinal Disorders, Gastrointestinal Bleed and Obesity REPRODUCTIVE: Positive Breast Cancer (Left breast) and Previous Pregnancies HEMATOLOGIC: Positive Blood Disorders and Anemia (Unexplained iron deficiency) OTHER HISTORY: Positive Blood Transfusions, Chemotherapy (2018), Radiation Therapy (2018), Cancer and Breast Cancer (Left breast) Family History FAMILY HISTORY: Positive Family Respiratory Disorders, Family Cardiac Disorders, Family Cancer (PT'S AUNT BREAST CANCER, PT'S BROTHER LEUKEMIA) and Family Surgery Surgical History SURGICAL: Positive Lumpectomy (left breast with lymph node dissection of 3 nodes) Social History SMOKING STATUS: Never smoker ED Exam Narrative Physical exam: GENERAL APPEARANCE: alert and oriented x 4, well-developed, well-nourished, no acute distress HEENT: Normocephalic, atraumatic; pupils equal, round, reactive to light; EOMI; mucous membranes pink, moist; oropharynx clear NECK: Supple LUNGS: CTABL; no wheezes, no rales, no rhonchi HEART: Regular rate, regular rhythm; normal S1, S2; no murmurs ABDOMEN: non distended; normal BS; soft, no tenderness, no guarding, no rebound; no masses, no organomegaly, no hernia BACK: no CVA tenderness EXTREMITIES: atraumatic; no edema NEUROLOGIC: awake; alert and oriented x4; cranial nerves II-XII grossly intact; no focal sensory or motor deficits PSYCHIATRIC: appropriate mood and affect SKIN: warm, dry, normal color; no rashes Course Quality Measures none Orders Category Date Time Status Insert IV NOW Care 11/25/24 11:03 Active Occult Blood,Stool (Nursing) NEEDED Care 11/25/24 11:03 Active Transfuse,blood/blood products NOW Care 11/25/24 13:50 Active Antibody Identification Stat Lab 11/25/24 11:26 Results CBC Stat Lab 11/25/24 11:26 Completed Comprehensive Metabolic Panel Stat Lab 11/25/24 11:26 Completed Occult Blood, Stool (LAB) Stat Lab 11/25/24 13:14 Completed PC [Red Blood Cells] Stat Lab 11/25/24 11:26 Results Prothrombin Time with INR Stat Lab 11/25/24 11:26 Completed Type and Screen Stat Lab 11/25/24 11:26 Results Vital Signs Vital signs: Vital Signs Temperature 98.5 F 11/25/24 10:48 Pulse Rate 94 11/25/24 10:48 Respiratory Rate 20 11/25/24 10:48 Blood Pressure 153/70 H 11/25/24 10:48 Pulse Oximetry (%) 97 11/25/24 10:48 Oxygen Delivery Method Room Air 11/25/24 10:48 Pulse ox is 97% on room air which is adequate. Recheck / Abnormal Lab / Rx MDM Narrative MDM Narrative:: Jacqui Messer am scribing for and in the presence of Dr. Mora. Patient data External records reviewed:: [facility] previous records (I reviewed H&P on 11/07/2024 ) Clinical information provided by:: patient Social determinants that could affect healthcare access:: none Patient has the following chronic illnesses:: left breast carcinoma, hypertension, and anemia How is presenting disease/condition affected by chronic disease/condition?: exacerbated by Evaluation data The following diagnostics were reviewed and interpreted by me:: lab results Lab and/or radiology exams considered but not ordered:: None Interpretation Summary: Patient anemic, H/H 5.4/19.6 Medications / Prescriptions Medications or Prescriptions considered but not ordered:: None Medication administrations:: See above Consultations Consultation(s) initiated? (list below): No Diagnosis Recheck Differential Diagnosis: other (anemia, chronic anemia, GI bleed ) Most likely diagnosis given after review of the tests above:: Anemia Admission Indicated Admission indicated?: not indicated Admission Request Was there a request for admission?: No Disposition Plan Disposition Plan: Discharge Discharge Attestation Discharge Attestation: The patient and all family members were given an opportunity to ask questions and understood the discharge instructions. Discharge instructions specifically effects, indications for sooner follow up or return to the emergency department, and the expected course of current diagnosis. Patient condition: Stable Discharge Plan Plan Patient Disposition: HOME (Self Care) Prescriptions/Referrals Prescriptions/Med Rec: No Action ferrous sulfate 324 mg (65 mg iron) tablet,delayed release (DR/EC) 324 mg PO BID Qty: 60 0RF benzonatate 100 mg capsule 100 mg PO BID PRN (Reason: cough) Qty: 20 0RF acetaminophen 500 mg capsule 500 mg PO Q6H PRN (Reason: pain) Qty: 30 0RF fluticasone propionate [Flonase Allergy Relief] 50 mcg/actuation spray,suspension 1 spray intranasal QDAY Qty: 16 0RF Rx Instructions: administer into each nostril diltiazem HCl 240 mg capsule,extended release 24hr 240 mg PO DAILY letrozole [Femara] 2.5 mg tablet 2.5 tab PO QDAY losartan 25 mg tablet 25 mg PO QDAY Referrals: Emelia Orozco MD [Primary Care Provider] - In 1 week Problem List Clinical Impression: Anemia, Transfusion of blood during current hospitalization Patient/Caregiver Discharge Instructions Education Materials: ED Anemia Type Not Specified Print Language: [place]orese Stand Alone Forms: [facility] Award Info., Patient Portal Info Letter
== END 2024-11-25 22:15 | disposition home or self-care (01) ==
PROVIDERS: Nurse Practitioner Primary Care; Emergency Provider Emergency Medicine; PCP Family Medicine
DX: D64.9 Anemia, unspecified (principal)
CPT/HCPCS: 36415; 36430; 80053; 82270; 85025; 85610; 86850; 86870; 86900; 86901; 86921; 86922; 99285; P9016

== ENCOUNTER → 2024-11-25 | Outpatient (CLI) | payer OTHER, SELFPAY ==
[2024-11-25 08:43] LABS: Basophils # (Auto) 0.1 Thou/mm3 (0.0-0.2); Basophils % (Auto) 1 % (0-2.5); Eosinophils # (Auto) 0.2 Thou/mm3 (0.0-0.5); Eosinophils % (Auto) 5 % (0-10); Immature Granulocytes % (Auto) 0 % (0-0); Immature Granulocytes Auto 0.01 Thou/mm3 (0.00-0.00); Immature Reticulocyte Fraction 32.4 % (3.0-15.9); Lymphocytes # (Auto) 1.7 Thou/mm3 (1.0-4.8); Lymphocytes % (Auto) 34 % (10-50); Mean Corpuscular HGB Conc 28.2 g/dl (31.0-37.0); Mean Corpuscular Hemoglobin 19.9 pg (25.0-35.0); Mean Corpuscular Volume 71 fL (80-100); Monocytes # (Auto) 0.5 Thou/mm3 (0.0-0.8); Monocytes % (Auto) 10 % (0-12); Neutrophils # (Auto) 2.6 Thou/mm3 (1.8-7.7); Neutrophils % (Auto) 50 % (37-80); Nucleated Red Blood Cell % 0 /100 WBC (0); Platelet Count 249 Thou/mm3 (140-440); RDW Standard Deviation 44.4 fL (36.4-46.3); Red Blood Count 2.76 Miln/mm3 (4.00-5.20); Reticulocyte % (Auto) 2.2 % (0.5-1.5); White Blood Count 5.1 Thou/mm3 (3.6-11.0)
[2024-11-25 08:50] LABS: Hemoglobin 5.5 g/dL (12.0-16.0)
[2024-11-25 08:51] LABS: Hematocrit 19.5 % (36.0-46.0)
[2024-11-25 09:13] LABS: Alanine Aminotransferase 14 U/L (10-49); Albumin, Serum 3.5 gm/dL (3.4-4.8); Albumin/Globulin Ratio 1.5 (1.2-2.2); Alkaline Phosphatase 117 U/L (46-116); Anion Gap 9 (7-16); Aspartate Amino Transferase 20 U/L (0-34); BUN/Creatinine Ratio 19 Ratio (12-20); Bilirubin,Total 0.8 mg/dL (0.3-1.2); Blood Urea Nitrogen 19 mg/dL (9-23); Calcium 8.4 mg/dL (8.3-10.6); Calcium (Corrected) 8.8 mg/dL (8.5-10.1); Carbon Dioxide 23.9 mMol/L (20.0-31.0); Chloride 108 mMol/L (98-107); Ferritin 2 ng/mL (7.3-270.7); Globulin 2.3 gm/dL (2.3-3.5); Glucose 134 mg/dL (74-106); Iron 11 mcg/dL (50-170); Osmolality,Calculated 285 (275-295); Percent Iron Saturation 2 % (20-55); Potassium 4.7 mMol/L (3.4-5.1); Sodium 141 mMol/L (136-145); Total Iron Binding Capacity 370 mcg/dL (250-425); Total Protein 5.8 gm/dL (5.7-8.2); Unsaturated Iron Binding 359 (225-295); eGFR > 60 See Note
[2024-11-25 09:27] LABS: Carcinoembryonic Antigen 1.1 ng/mL (0.0-5.0); Folate 10.04 ng/mL (>5.38); Vitamin B12 670 pg/mL (211-911)
== END | disposition home or self-care (01) ==
LOC: SCTO 08:06
PROVIDERS: PCP Nurse Practitioner Family; Referring Provider Nurse Practitioner Family; Visit Provider Nurse Practitioner Family
DX: C50.412 Malignant neoplasm of upper-outer quadrant of left female breast (principal)
CPT/HCPCS: 36415; 80053; 82378; 82607; 82728; 82746; 83540; 83550; 85025; 85046; 86300

== ENCOUNTER 2024-11-28 14:49 | Outpatient (RCR) | payer OTHER, SELFPAY ==
--- NOTE | 2024-11-29 00:23 | CTCFLWUP_ITS ---
Patient: {Patient.NameLALEXY} : {Admin.Birth_Date} MRN: {Ident.ADRIANNA} Page 6 of 7 FOLLOW UP NOTE DATE OF SERVICE: 11/28/2024 NAME: {Kayy} MRN: {Ident.ADRIANNA} ACCOUNT: [id number] : {Admin.Birth_Date} AGE: {Admin.Age} INTERVAL HISTORY: I am seeing Ms. Ledezma.Patient has been getting progressively anemic since 2021. Patient required multiple transfusion recently. Patient has been getting iron and recently got EGD. Patient is here for follow-up DIAGNOSIS: Malignant neoplasm of upper-outer quadrant of left female breast [ICD10] C50.412 Stage IIb ER NH positive HER-2/alma negative high-grade invasive lobular carcinoma of left breast (12/09/2017). s/p left breast partial mastectomy as well as sentinel lymph node biopsy (12/09/2017) On adjuvant letrozole (08/17/2018-). Osteopenia (04/22/2023) Erosive gastritis, GI, Dr. Castillo Iron deficiency anemia DATE OF DIAGNOSIS: 10/22/2017 STAGE/TNM: Stage IIb (pT2 snN1a), ER NH positive HER-2/alma negative high-grade invasive lobular carcinoma of left breast TREATMENT HISTORY: Care?Plan Start?Date Cycle Day Intent DOCEtaxel?75,?Cyclophosphamide?600?-?Herceptin 03/01/2018 1 21 Curative?(adjuvant) DOCEtaxel?75,?Cyclophosphamide?600?-?Adj 03/01/2018 1 21 Curative?(adjuvant) PROLia?60mg?every?6?months 06/30/2023 1 180 Curative?(primary) FERAheme?4?doses 03/11/2025 1 28 Palliative VENOfer?200mg?IV?wkly?for?10?weeks 03/12/2025 1 70 Palliative FERAheme?4?doses 06/30/2023 1 28 Palliative VENOfer?200mg?IV?wkly?for?10?weeks 04/26/2024 1 70 Palliative FERRlecit?she 08/09/2024 1 7 Palliative HISTORY OF PRESENT ILLNESS: PREVIOUS NOTES: Patricia Liriano is a 69-year-old Thai-speaking female with following history. 10/22/2017: Patient had left breast stereotactic core biopsy of a architectural distorted lesion at 1 o'clock position. Pathology showed ER NH positive HER-2/alma negative invasive lobular carcinoma. 12/09/2017: Patient had left breast partial mastectomy as well as sentinel lymph node biopsy. Surgical pathology specimen showed a 4.2 x 3.7 x 1.5 cm, single focus, high-grade invasive lobular carcinoma. Lymphovascular invasion was positive. 2 out of 3 sentinel lymph nodes were positive for metastatic disease with largest metastatic focus was 14 mm in size. It was staged as pT2,sn N1a, cM0 disease. 02/05/2018: CT scan of the abdomen and pelvis with IV contrast was obtained. CT showed a 7 mm noncalcified pulmonary nodule in the left lower lobe. Scans were negative for metastatic disease in the abdomen and pelvis. 03/01/2018?04/22/2018: Patient received 3 cycles of TC chemotherapy in the adjuvant setting. Unfortunately the third cycle of chemotherapy was complicated by diffuse skin rash. Further chemotherapy was discontinued. 06/07/2018?08/13/2018: Patient received 6120 cGy of radiation therapy to the left breast. 08/17/2018: Anastrozole 1 mg p.o. daily started. 09/15/2018: She is tolerating anastrozole very well. Denies any cough chest pain shortness of breath abdominal pain or leg cramps. Previous CT scans done on 02/05/2018 has shown a 7 mm noncalcified pulmonary nodule in the left lower lobe. Radiologist recommended repeating scans in 6 months at that time. 10/15/2018: Repeat CT scan of the chest abdomen pelvis with IV contrast showed stable 7 mm pleural-based pulmonary nodule in the left lower lobe. No evidence of any metastatic disease 11/15/2018: Anastrozole discontinued due to numbness in both forearms. Patient was started on letrozole 2.5 mg p.o. daily. 12/03/2018: Bone density test showed normal mineralization. 04/25/2021: Bone density test? 11/25/2022: Bilateral diagnostic mammogram Impression: BI-RADS Category 2: Benign findings Recommend yearly follow-up mammography. 12/16/2022: Hemoglobin 12.2, MCV 89, WBC 5.9, ANC 3.2, platelets 211,000, iron saturation 3%, ferritin 5. 06/19/2023: Hemoglobin 8.2, MCV 76, WBC 6.3, ANC 3.5, platelets 265,000, iron saturation 4%, ferritin 4 09/18/2023: Hemoglobin 11.5, MCV 88, WBC 4.6, ANC 2.5, platelets 205,000 11/26/2023: Bilateral mammogram screening 01/07/2024: Bilateral breast ultrasound 01/07/2024: Right diagnostic mammogram 02/19/2024: Hemoglobin 8.0, MCV 78, WBC 5.1, ANC 2.5, platelets 259,000, CEA 0.9, CA 15-3 is 7.1 03/04/2024: Iron saturation 5%, ferritin 4 03/17/2024: CT chest abdomen pelvis with contrast 06/20/2024: Hemoglobin 8.8, MCV 77, WBC 5.5, ANC 3.0, platelets 256,000, iron saturation 7%, ferritin 1 OTHER MEDICAL HISTORY/CONDITIONS: FAMILY HISTORY: 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 dilTIAZem HCl - 240 mg 1 Capsule Daily 2. letrozole - 2.5 mg 1 tab Daily 3. losartan - 25 mg 1 tab Daily 4. Natural Senna Laxative - 8.6 mg 2 tab Daily Medications Last Reconciled by Noy Levi MA on 11/28/2024 ALLERGIES: DOCETAXEL; DOCETAXEL REVIEW OF SYSTEMS: A complete 14-point review of systems was performed and is negative except as noted in interval history. PHYSICAL EXAMINATION: VITAL SIGNS: Temperature?99.5, B/P?175/78, Oxygen?Saturation?99% Weight?246?lbs PAIN: 0 - No pain ECOG Performance Status: 1 - Symptomatic; ambulatory; restricted in strenuous activity VITAL SIGNS PHYSICAL EXAMINATION: Neuro: Alert and oriented x 4 Conjunctivae is white. Chest is clear to auscultation. No wheezes or rales audible. No respiratory distress CVS: Normal heart sounds Abdomen is soft. No tenderness. Extremities: No cyanosis. LABORATORY DATA: I have personally reviewed and interpreted each of the patient?s relevant lab tests, abnormal findings are below: Date 11/25/24 ??WHITE?BLOOD?COUNT?(Thou/mm3) 5.1 5.3 ??RED?BLOOD?COUNT?(Miln/mm3) 2.76?L 2.82?L ??HEMOGLOBIN?(gm/dl) 5.5?LL 5.7?LL ??HEMATOCRIT?(%) 19.5?LL 19.6?LL ??PLATELET?COUNT?(Thou/mm3) 249 251 ??NEUTROPHILS?%,?AUTO?(%) 50 54 ??LYMPH?%,?AUTO?(%) 34 32 ??NEUTROPHILS,?AUTO?(Thou/mm3) 2.6 2.8 ??GLUCOSE,RANDOM?(mg/dL) ? 126?H ??BLOOD?UREA?NITROGEN?(mg/dL) ? 17 ??CREATININE?(mg/dL) ? 1.00 ??SODIUM?(mmol/L) ? 139 ??POTASSIUM?(mmol/L) ? 4.4 ??CHLORIDE?(mmol/L) ? 108?H ??CrCl?(CandG)?(ml/min) ? 61.12 ??AST/SGOT?(Unit/L) ? 22 ??ALT/SGPT?(Unit/L) ? 13 ??ALKALINE?PHOSPHATASE?(Unit/L) ? 116 ??BILIRUBIN,?TOTAL?(mg/dL) ? 0.8 ??PROTEIN?TOTAL?(gm/dl) ? 6.2 ??ALBUMIN,?SERUM?(gm/dl) ? 3.7 ??GLOBULIN?(gm/dl) ? 2.5 ??ALBUMIN/GLOBULIN?RATIO ? 1.5 ??CALCIUM,?SERUM?(mg/dL) ? 8.7 ??CALCIUM?SERUM?(CORRECTED)?(mg/dL) ? 8.9 ??RETICULOCYTE?ABSOLUTE?AUTO?(Biln/L) 61.0 ? ASSESSMENT/PLAN: #1. Stage IIb ER NH positive HER-2/alma negative high-grade invasive lobular carcinoma of left breast (12/09/2017). s/p left breast partial mastectomy as well as sentinel lymph node biopsy (12/09/2017) Continue adjuvant letrozole (08/17/2018-). Reports mild body aches, tolerable. Bilateral mammogram screening was done on 11/26/2023 Left breast ultrasound showed benign findings, 04/22/2024. Subcentimeter noncalcified pulmonary nodules, 6-month follow-up CT chest without contrast recommended, 03/17/2024. Unfortunately patient canceled CT of the chest, agreeable to reschedule. Continue letrozole, (08/17/2018-) Right breast ultrasound and right breast diagnostic mammogram showed benign findings, 09/14/2024. No clinical evidence of recurrence. CEA CA 15-3 prior to next follow-up appointment #2. Iron deficiency anemia likely secondary to GI bleed, 05/17/2022. Multiple transfusions last transfusion on 07/26/2024 for hemoglobin on 6.4. Received 1 unit of PRBC on 05/03/2024, 06/03/2024, 06/02/2024. Endoscopy showed erosive gastritis with hemorrhage, 05/06/2024, Dr. Castillo, GI. s/p Venofer infusions in 09/08/2023, unable to tolerate oral ferrous sulfate due to constipation and abdominal pain. Venofer remains unavailable, insurance denied Feraheme. Last ferrlecit IV was on 08/22/2024. Unfortunately, patient states she has not been able to come in for her weekly iron infusions due to babysitting issues. Patient babysits her grandchildren. Continue with Ferrlecit 125mg x 8 IV infusions, weekly, for a total of 1 gram. Hemoglobin was 6.7, MCV 75, 09/27/2024. Transfuse 2 units of PRBC. Recheck CBC 1 week after. Ordered colonoscopy Will order CT chest abdomen pelvis to evaluate for underlying malignancy Give 250 mg of iron IV weekly #3. Osteopenia (04/22/2023) Patient has previously tried aldendronate and Prolia, did not tolerate, due to reported bone pain and abdominal pain. Patient also declined Reclast. Patient self discontinued calcium and Vitamin D due to heartburn Patient going to [employer]. ORDERS: Order # Description [id number] Basic Metabolic Panel [id number] Follow Up 3 Months + CBC with Auto Diff + Comprehensive Metabolic Panel - 12 [id number] Infusion 1 Hour [id number] Basic Metabolic Panel [id number] Basic Metabolic Panel [id number] Basic Metabolic Panel RETURN TO CLINIC: 3 weeks BILLING AND COMPLIANCE: I reviewed external records from providers outside my specialty as summarized above. I spent a total of 50 minutes on this patient?s care on the day of their visit excluding time spent related to any billed procedures. This time includes time spent with the patient as well as time spent documenting in the medical record, reviewing patients records and tests, obtaining history, placing orders, communicating with other healthcare professionals, counseling the patient, family or caregiver, and/or care coordination for the diagnoses above. Electronically Signed by: {Object.Sanct_ID*PnP.NameFL@M}, {Object.Sanct_ID*PnP.Suffix@U} D: {Object.Sanct_Date} T: {Object.Sanct_Time} CC: Franklin?Boby,? PCP: {Admin.Pri_MD_ID*PnP.NameLFI@} Referring: {Admin.Ref_MD_ID*PnP.NameLFI@} This document was completed utilizing speech recognition software. Grammatical errors, random word insertions, pronoun errors, and incomplete sentences are an occasional consequence of this system due to software limitations, ambient noise, and hardware issues. Any formal questions or concerns about the content, text or information contained within the body of this dictation should be directly addressed to the provider for clarification.
== END 2024-11-28 23:59 | disposition home or self-care (01) ==
LOC: SCTC 14:49
PROVIDERS: PCP Family Medicine; Referring Provider Family Medicine; Visit Provider Internal Medicine Hematology & Oncology
DX: D50.9 Iron deficiency anemia, unspecified (principal); C50.412 Malignant neoplasm of upper-outer quadrant of left female breast; Z17.0 Estrogen receptor positive status [ER+]; Z17.21 Progesterone receptor positive status; Z17.32 Human epidermal growth factor receptor 2 negative status; Z79.811 Long term (current) use of aromatase inhibitors; Z90.12 Acquired absence of left breast and nipple; M85.88 Other specified disorders of bone density and structure, other site
CPT/HCPCS: 99212; G0463

== ENCOUNTER → 2025-01-05 | Outpatient (CLI) | payer OTHER, SELFPAY ==
--- NOTE | 2025-01-05 10:00 | XR_ITS ---
Examination: CT chest with intravenous contrast CT abdomen with intravenous contrast CT pelvis with intravenous contrast CT chest without intravenous contrast CT abdomen without intravenous contrast CT pelvis without intravenous contrast 2-D coronal and sagittal reconstructions Time of exam: January 05, [address] chest October 13, 2024, mammogram September 14, 2024, CT chest March 17, 2024 INDICATIONS: Diagnosis malignant neoplasm upper outer quadrant left female breast 2018, restaging, pulmonary nodules on CT chest October 13, 2024 CTDI: vol (mGy) : 29 DLP: (mGycm): 2137 Technique: Multiple axial images of the chest, abdomen and pelvis with intravenous contrast, 3.0 mm slice thickness. Images obtained post intravenous injection Isovue 370 60 cc. 2-D sagittal and coronal reconstructions. Low dose protocols were performed. One or more of the following dose reduction techniques were used; automated exposure control, adjustment of the mA and/or KV according to patient size, use of iterative reconstruction technique. Findings: Presumed posttreatment changes left breast with architectural distortion lateral left breast No pathologic axillary lymphadenopathy, no chest wall mass No thoracic aortic aneurysm dilatation No pulmonary artery filling defects Mild strain cardiac contour No change in multiple bilateral pulmonary nodules, no new pulmonary nodules Liver is mildly irregular in contour Gallstones Spleen not enlarged No pancreatic or adrenal mass No interval abdominal or pelvic lymphadenopathy No hydronephrosis Abdominal aorta normal size Normal appendix No bowel obstruction No pelvic mass Urinary bladder intact Significant osteopenia No interval osseous metastatic disease IMPRESSION: Stable bilateral pulmonary nodules compared with CT chest October 13, 2024, no new pulmonary nodules No interval pneumonia, pulmonary edema or pleural disease No interval metastatic disease in the abdomen or pelvis
[2025-01-05 11:33] LABS: Anion Gap 6 (7-16); BUN/Creatinine Ratio 17 Ratio (12-20); Blood Urea Nitrogen 17 mg/dL (9-23); Calcium 8.4 mg/dL (8.3-10.6); Carbon Dioxide 25.5 mMol/L (20.0-31.0); Chloride 108 mMol/L (98-107); Glucose 187 mg/dL (74-106); Osmolality,Calculated 284 (275-295); Potassium 4.6 mMol/L (3.4-5.1); Sodium 139 mMol/L (136-145); eGFR > 60 See Note
== END | disposition home or self-care (01) ==
LOC: CCTX 09:51
PROVIDERS: PCP Family Medicine; Referring Provider Internal Medicine Hematology & Oncology; Visit Provider Internal Medicine Hematology & Oncology
DX: R91.8 Other nonspecific abnormal finding of lung field (principal); C50.412 Malignant neoplasm of upper-outer quadrant of left female breast
CPT/HCPCS: 36415; 71270; 74178; 80048; A4649; Q9967

== ENCOUNTER 2025-01-11 11:49 | Emergency (ER) | payer OTHER, SELFPAY ==
[2025-01-11] VITALS (16 sets, daily range): BP systolic 137–187; BP diastolic 47–81; PULSE 72–89; RESP 17–19; TEMP 36.6–37.2; O2SAT 96–100
--- NOTE | 2025-01-11 16:04 | PD.EDADULT ---
ED General RME/HPI General Chief complaint: General Adult/Misc Complain Stated complaint: Blood transfusion (sent from cancer center) Time Seen by Provider: 01/11/25 12:16 Arrival date/time: 01/11/25 11:49 RME / HPI RME / HPI narrative: 69 year old female with a history of left breast cancer s/p partial mastectomy and iron deficiency anemia presents to the ED after being referred by CTC for evaluation of low hemoglobin. The patient reports being informed today that her hemoglobin was 4.9. She has a known history of anemia and states she has received approximately six blood transfusions in the past, with the most recent transfusion occurring in 10/2024. While in the ED, the patient reports experiencing chest pain over the past 5 days, described as a central, non-radiating, aching discomfort of moderate intensity. The pain is aggravated by exertion, particularly when climbing stairs. She also reports associated exertional dyspnea and generalized weakness. She denies syncope, palpitations, fever, chills, cough, melena, hematochezia, or any other complaints at this time. Related Data Home Medications ?Medication ?Instructions ?Recorded ?Confirmed diltiazem HCl 240 mg 240 mg PO DAILY 05/14/22 11/07/24 capsule,extended release 24 hr letrozole 2.5 mg tablet (Femara) 2.5 tab PO QDAY 05/14/22 11/07/24 losartan 25 mg tablet 25 mg PO QDAY 05/06/24 11/07/24 Previous Rx's ?Medication ?Instructions ?Recorded ferrous sulfate 324 mg (65 mg 324 mg PO BID #60 tabs 04/09/24 iron) tablet,delayed release acetaminophen 500 mg capsule 500 mg PO Q6H PRN pain #30 caps 11/02/24 benzonatate 100 mg capsule 100 mg PO BID PRN cough #20 caps 11/02/24 fluticasone propionate 50 1 spray intranasal QDAY #16 grams 11/02/24 mcg/actuation nasal spray,suspension (Flonase Allergy Relief) Allergies Allergy/AdvReac Type Severity Reaction Status Date / Time No Known Allergies Allergy Verified 01/11/25 11:51 Review of Systems Review of Systems Narrative Review of Systems: GEN: No fever, no chills, no weight loss, +generalized weakness EYES: No discharge, no visual changes, no pain HEENT: No ear pain, no congestion, no sore throat PULM:+ shortness of breath, no cough, no congestion CV: + chest pain, +dyspnea on exertion, no palpitations GI: No nausea, no vomiting, no diarrhea, no pain, no constipation : No frequency, no urgency, no dysuria MUSC/SKEL: No joint pain, no back pain SKIN: No rash NEURO: +generalized weakness, no headache Past Medical History Past Medical History CARDIAC: Positive Cardiac Disorders and Hypertension RESPIRATORY: Positive Sleep Apnea GASTROINTESTINAL: Positive Gastrointestinal Disorders, Gastrointestinal Bleed and Obesity REPRODUCTIVE: Positive Breast Cancer and Previous Pregnancies HEMATOLOGIC: Positive Blood Disorders and Anemia OTHER HISTORY: Positive Blood Transfusions, Chemotherapy, Radiation Therapy, Cancer and Breast Cancer Family History FAMILY HISTORY: Positive Family Respiratory Disorders, Family Cardiac Disorders, Family Cancer and Family Surgery Surgical History SURGICAL: Positive Lumpectomy Social History SMOKING STATUS: Never smoker ED Exam Narrative Physical exam: GENERAL APPEARANCE: alert and oriented x 4, well-developed, pale, no acute distress HEENT: Normocephalic, atraumatic; pupils equal, round, reactive to light; EOMI; mucous membranes pink, moist; oropharynx clear NECK: Supple LUNGS: CTABL; no wheezes, no rales, no rhonchi HEART: Regular rate, regular rhythm; normal S1, S2; no murmurs ABDOMEN: non distended; normal BS; soft, no tenderness, no guarding, no rebound; no masses, no organomegaly, no hernia BACK: no CVA tenderness EXTREMITIES: atraumatic; no edema NEUROLOGIC: awake; alert and oriented x4; cranial nerves II-XII grossly intact; no focal sensory or motor deficits PSYCHIATRIC: appropriate mood and affect SKIN: warm, dry, pale; no rashes Course Quality Measures none Orders Category Date Time Status Transfuse,blood/blood products NOW Care 01/11/25 12:15 Active Antibody Identification Stat Lab 01/11/25 12:59 Results Red Blood Cells Stat Lab 01/11/25 12:59 Results Troponin I Stat Lab 01/11/25 16:41 Completed Type and Screen Stat Lab 01/11/25 12:59 Results Vital Signs Vital signs: Vital Signs Temperature 98.4 F 01/11/25 12:08 Pulse Rate 78 01/11/25 12:08 Respiratory Rate 18 01/11/25 12:08 Blood Pressure 153/61 H 01/11/25 12:08 Pulse Oximetry (%) 99 01/11/25 12:08 Oxygen Delivery Method Room Air 01/11/25 12:08 Pulse ox is 99% on room air which is adequate. Discharge Plan Plan Patient Disposition: HOME (Self Care) Prescriptions/Referrals Prescriptions/Med Rec: No Action ferrous sulfate 324 mg (65 mg iron) tablet,delayed release (DR/EC) 324 mg PO BID Qty: 60 0RF benzonatate 100 mg capsule 100 mg PO BID PRN (Reason: cough) Qty: 20 0RF acetaminophen 500 mg capsule 500 mg PO Q6H PRN (Reason: pain) Qty: 30 0RF fluticasone propionate [Flonase Allergy Relief] 50 mcg/actuation spray,suspension 1 spray intranasal QDAY Qty: 16 0RF Rx Instructions: administer into each nostril diltiazem HCl 240 mg capsule,extended release 24hr 240 mg PO DAILY letrozole [Femara] 2.5 mg tablet 2.5 tab PO QDAY losartan 25 mg tablet 25 mg PO QDAY Referrals: [place] [facility] [Primary Care Provider] - In 1 week Problem List Clinical Impression: Anemia requiring transfusions, Symptomatic anemia, Transfusion of platelets during current hospitalization Patient/Caregiver Discharge Instructions Education Materials: Anemia, Anemia During Cancer Print Language: Gabonese Stand Alone Forms: [facility] Info., Patient Portal Info Letter MDM Narrative MDM hospital course (for use when minimal MDM required): Jacqui Messer am scribing for and in the presence of Dr. Neff. Clinical Information Provided by: patient Medical Records reviewed [facility] (I reviewed ED visit on 11/25/2024 for anemia ) Meds/Rx considered, not ordered None Labs/Rad/Tests considered, not ordered None Chronic Illness/Social Conditions which may negatively complicate care or outcome(s)-explain: None or not applicable Labs Labs: Interpreted by tx Lab(s) Interpretation(s): H/H 4.9/18.0, patient severely anemic Imaging Imaging interpretation: none or see narrative above Medication Administration(s) See above Diagnosis Diagnoses ruled out and/or further discussions: anemia requiring transfusions symptomatic anemia
[2025-01-11 17:22] LABS: Troponin I < 0.002 ng/mL (0.0-0.045)
== END 2025-01-11 23:24 | disposition home or self-care (01) ==
PROVIDERS: Emergency Provider Emergency Medicine; PCP Nurse Practitioner Family
DX: D64.9 Anemia, unspecified (principal); R07.9 Chest pain, unspecified
CPT/HCPCS: 36415; 36430; 84484; 86850; 86870; 86900; 86901; 86902; 86921; 86922; 99285; P9016

== ENCOUNTER → 2025-01-11 | Outpatient (CLI) | payer OTHER, SELFPAY ==
[2025-01-11 09:26] LABS: Basophils # (Auto) 0.1 Thou/mm3 (0.0-0.2); Basophils % (Auto) 2 % (0-2.5); Eosinophils # (Auto) 0.1 Thou/mm3 (0.0-0.5); Eosinophils % (Auto) 3 % (0-10); Immature Granulocytes % (Auto) 0 % (0-0); Immature Granulocytes Auto 0.01 Thou/mm3 (0.00-0.00); Lymphocytes # (Auto) 1.4 Thou/mm3 (1.0-4.8); Lymphocytes % (Auto) 33 % (10-50); Mean Corpuscular HGB Conc 27.2 g/dl (31.0-37.0); Mean Corpuscular Hemoglobin 18.8 pg (25.0-35.0); Mean Corpuscular Volume 69 fL (80-100); Monocytes # (Auto) 0.4 Thou/mm3 (0.0-0.8); Monocytes % (Auto) 10 % (0-12); Neutrophils # (Auto) 2.1 Thou/mm3 (1.8-7.7); Neutrophils % (Auto) 52 % (37-80); Nucleated Red Blood Cell # 0.02 Thou/mm3 (0.00-0.00); Nucleated Red Blood Cell % 1 /100 WBC (0); Platelet Count 271 Thou/mm3 (140-440); Red Blood Count 2.61 Miln/mm3 (4.00-5.20); White Blood Count 4.1 Thou/mm3 (3.6-11.0)
[2025-01-11 09:27] LABS: Alanine Aminotransferase 12 U/L (10-49); Albumin, Serum 3.7 gm/dL (3.4-4.8); Albumin/Globulin Ratio 1.5 (1.2-2.2); Alkaline Phosphatase 114 U/L (46-116); Anion Gap 10 (7-16); Aspartate Amino Transferase 19 U/L (0-34); BUN/Creatinine Ratio 18 Ratio (12-20); Bilirubin,Total 0.9 mg/dL (0.3-1.2); Blood Urea Nitrogen 18 mg/dL (9-23); Calcium (Corrected) 8.2 mg/dL (8.5-10.1); Carbon Dioxide 24.5 mMol/L (20.0-31.0); Chloride 109 mMol/L (98-107); Globulin 2.4 gm/dL (2.3-3.5); Glucose 147 mg/dL (74-106); Osmolality,Calculated 289 (275-295); Potassium 4.5 mMol/L (3.4-5.1); Sodium 143 mMol/L (136-145); Total Protein 6.1 gm/dL (5.7-8.2); eGFR > 60 See Note
[2025-01-11 09:34] LABS: Hemoglobin 4.9 g/dL (12.0-16.0)
[2025-01-11 09:49] LABS: Path Review Blood Smear Sent to Pathologist
== END | disposition home or self-care (01) ==
LOC: SCTO 08:03
PROVIDERS: PCP Family Medicine; Referring Provider Nurse Practitioner Family; Visit Provider Nurse Practitioner Family
DX: C50.412 Malignant neoplasm of upper-outer quadrant of left female breast (principal)
CPT/HCPCS: 36415; 80053; 85025

== ENCOUNTER → 2025-01-18 | Outpatient (CLI) | payer OTHER, SELFPAY ==
[2025-01-18 08:03] LABS: Collection Type, Urine Clean Catch
[2025-01-18 08:52] LABS: Cardiac Risk Estimate 3.5 RATIO (3.7-5.6); Cholesterol 129 mg/dL (132-200); HDL Cholesterol 37 mg/dL (40-60); LDL Cholesterol,Calculated 69 mg/dL (0-130); Thyroid Stimulating Hormone 6.44 uIU/mL (0.55-4.78); Triglycerides 113 mg/dL (30-150)
[2025-01-18 08:53] LABS: Bilirubin,Urine Negative (Negative); Blood,Urine Negative (Negative); Clarity,Urine Clear (Clear/Hazy); Color,Urine Lt-Yellow (Lt Yel-Yel); Culture Indicated,Urine Not Indicated; Glucose, Urine Negative (Negative); Ketones,Urine Negative (Negative); Leukocyte Esterase,Urine Positive (Negative); Nitrite,Urine Negative (Negative); Protein,Urine Negative (Neg - Trace); RBC,Urine 4 /hpf (0-3); Specific Gravity,Urine 1.013 (1.001-1.035); Squamous Epithelial Cell,Urine < 1 /hpf (0-5); Urobilinogen,Urine Negative mg/dL (0.0-1.0); WBC,Urine 2 /hpf (0-5)
== END | disposition home or self-care (01) ==
LOC: COPL 07:12
PROVIDERS: PCP Nurse Practitioner Family; Referring Provider Nurse Practitioner Family; Visit Provider Nurse Practitioner Family
DX: Z00.00 Encounter for general adult medical examination without abnormal findings (principal)
CPT/HCPCS: 36415; 80061; 81001; 84443

== ENCOUNTER 2025-01-26 13:06 | Outpatient (RCR) | payer OTHER, SELFPAY | END 2025-01-28 23:59 | disposition home or self-care (01) | LOC: SCTC 13:06 | PROVIDERS: PCP Nurse Practitioner Family; Referring Provider Nurse Practitioner Family; Visit Provider Nurse Practitioner Family | DX: C50.412 Malignant neoplasm of upper-outer quadrant of left female breast (principal); Z17.0 Estrogen receptor positive status [ER+]; Z17.21 Progesterone receptor positive status; Z17.32 Human epidermal growth factor receptor 2 negative status; Z90.12 Acquired absence of left breast and nipple; Z79.811 Long term (current) use of aromatase inhibitors; M85.88 Other specified disorders of bone density and structure, other site; D50.9 Iron deficiency anemia, unspecified; K92.1 Melena | CPT/HCPCS: 99212; G0463 ==

== ENCOUNTER → 2025-01-26 | Outpatient (CLI) | payer OTHER, SELFPAY ==
[2025-01-26 14:45] LABS: Basophils # (Auto) 0.1 Thou/mm3 (0.0-0.2); Basophils % (Auto) 2 % (0-2.5); Eosinophils # (Auto) 0.2 Thou/mm3 (0.0-0.5); Eosinophils % (Auto) 3 % (0-10); Hematocrit 20.9 % (36.0-46.0); Immature Granulocytes % (Auto) 0 % (0-0); Immature Granulocytes Auto 0.02 Thou/mm3 (0.00-0.00); Lymphocytes # (Auto) 1.8 Thou/mm3 (1.0-4.8); Lymphocytes % (Auto) 30 % (10-50); Mean Corpuscular HGB Conc 28.2 g/dl (31.0-37.0); Mean Corpuscular Hemoglobin 20.8 pg (25.0-35.0); Mean Corpuscular Volume 74 fL (80-100); Monocytes # (Auto) 0.7 Thou/mm3 (0.0-0.8); Monocytes % (Auto) 12 % (0-12); Neutrophils # (Auto) 3.2 Thou/mm3 (1.8-7.7); Neutrophils % (Auto) 53 % (37-80); Nucleated Red Blood Cell % 0 /100 WBC (0); Platelet Count 282 Thou/mm3 (140-440); RDW Standard Deviation 55.8 fL (36.4-46.3); Red Blood Count 2.83 Miln/mm3 (4.00-5.20); White Blood Count 6.1 Thou/mm3 (3.6-11.0)
[2025-01-26 15:09] LABS: Hemoglobin 5.9 g/dL (12.0-16.0)
[2025-01-26 15:11] LABS: Alanine Aminotransferase 15 U/L (10-49); Albumin, Serum 3.7 gm/dL (3.4-4.8); Albumin/Globulin Ratio 1.8 (1.2-2.2); Alkaline Phosphatase 115 U/L (46-116); Anion Gap 11 (7-16); Aspartate Amino Transferase 22 U/L (0-34); BUN/Creatinine Ratio 22 Ratio (12-20); Bilirubin,Total 0.8 mg/dL (0.3-1.2); Blood Urea Nitrogen 22 mg/dL (9-23); Calcium 8.2 mg/dL (8.3-10.6); Calcium (Corrected) 8.4 mg/dL (8.5-10.1); Chloride 109 mMol/L (98-107); Globulin 2.1 gm/dL (2.3-3.5); Glucose 149 mg/dL (74-106); Osmolality,Calculated 293 (275-295); Potassium 4.6 mMol/L (3.4-5.1); Sodium 144 mMol/L (136-145); Total Protein 5.8 gm/dL (5.7-8.2); eGFR > 60 See Note
== END | disposition home or self-care (01) ==
LOC: SCTO 14:08
PROVIDERS: PCP Family Medicine; Referring Provider Nurse Practitioner Family; Visit Provider Nurse Practitioner Family
DX: C50.412 Malignant neoplasm of upper-outer quadrant of left female breast (principal)
CPT/HCPCS: 36415; 80053; 85025

== ENCOUNTER 2025-01-27 09:58 | Emergency (ER) | payer OTHER, SELFPAY ==
[2025-01-27] VITALS (40 sets, daily range): BP systolic 114–177; BP diastolic 37–86; PULSE 60–94; RESP 3–28; TEMP 36.6–37.3; O2SAT 91–99; BMI 47.2
[2025-01-27 10:46] LABS: Basophils # (Auto) 0.1 Thou/mm3 (0.0-0.2); Basophils % (Auto) 2 % (0-2.5); Eosinophils # (Auto) 0.2 Thou/mm3 (0.0-0.5); Eosinophils % (Auto) 4 % (0-10); Immature Granulocytes % (Auto) 0 % (0-0); Immature Granulocytes Auto 0.01 Thou/mm3 (0.00-0.00); Lymphocytes # (Auto) 1.2 Thou/mm3 (1.0-4.8); Lymphocytes % (Auto) 29 % (10-50); Mean Corpuscular HGB Conc 29.3 g/dl (31.0-37.0); Mean Corpuscular Hemoglobin 20.7 pg (25.0-35.0); Mean Corpuscular Volume 71 fL (80-100); Monocytes # (Auto) 0.4 Thou/mm3 (0.0-0.8); Monocytes % (Auto) 9 % (0-12); Neutrophils # (Auto) 2.4 Thou/mm3 (1.8-7.7); Neutrophils % (Auto) 56 % (37-80); Nucleated Red Blood Cell % 0 /100 WBC (0); Platelet Count 267 Thou/mm3 (140-440); RDW Standard Deviation 53.9 fL (36.4-46.3); White Blood Count 4.3 Thou/mm3 (3.6-11.0)
[2025-01-27 11:02] LABS: Alanine Aminotransferase 13 U/L (10-49); Albumin, Serum 3.7 gm/dL (3.4-4.8); Albumin/Globulin Ratio 1.7 (1.2-2.2); Alkaline Phosphatase 103 U/L (46-116); Anion Gap 8 (7-16); Aspartate Amino Transferase 23 U/L (0-34); BUN/Creatinine Ratio 19 Ratio (12-20); Bilirubin,Total 0.9 mg/dL (0.3-1.2); Blood Urea Nitrogen 19 mg/dL (9-23); Calcium 8.1 mg/dL (8.3-10.6); Calcium (Corrected) 8.3 mg/dL (8.5-10.1); Carbon Dioxide 25.9 mMol/L (20.0-31.0); Chloride 111 mMol/L (98-107); Estimated Creatinine Clearance 58.8 mL/min (>60); Globulin 2.2 gm/dL (2.3-3.5); Glucose 141 mg/dL (74-106); Osmolality,Calculated 292 (275-295); Potassium 4.4 mMol/L (3.4-5.1); Sodium 145 mMol/L (136-145); Total Protein 5.9 gm/dL (5.7-8.2); eGFR > 60 See Note
[2025-01-27 11:14] LABS: Hematocrit 19.8 % (36.0-46.0); Hemoglobin 5.8 g/dL (12.0-16.0)
--- NOTE | 2025-01-27 15:58 | EDNOTE_ITS ---
<Statement entered by Janay Neff MD - 02/07/25 01:03> As co-signing physician, I was present and available for consult prn. I concur with the plan and care as documented by the midlevel provider. ED Recheck Abnl Lab Rx-RME/HPI General Chief Complaint: General Adult/Misc Complain Stated Complaint: FATIGUE, DIZZINESS, WATERY EYES, SENT BY [facility] FOR Time Seen by Provider: 01/27/25 10:08 Arrival date/time: 01/27/25 09:58 RME / HPI RME / HPI narrative: 69 year old female with a history of left breast cancer s/p partial mastectomy and iron deficiency anemia presents to the ED sent by [facility] for further evaluation and treatment of low hemoglobin levels. Accompanied by global weakness and exertional dyspnea. Patient stated she has a known history of anemia and is being worked up by oncologist Dr. Robison and GI Dr. Castillo; has a colonoscopy scheduled for 02/08/2025. States she has received approximately 7 blood transfusions in the past, with the most recent transfusion occurring in 01/11/2025. States symptoms did not improve after her last blood transfusion. Denies syncope, palpitations, fever, chills, cough, melena, hematochezia, or any other complaints at this time. Related Data Home Medications ?Medication ?Instructions ?Recorded ?Confirmed diltiazem HCl 240 mg 240 mg PO DAILY 05/14/2206/24 capsule,extended release 24 hr letrozole 2.5 mg tablet (Femara) 2.5 tab PO QDAY 05/1411/07/24 losartan 25 mg tablet 25 mg PO QDAY 05/06/2411/07 Previous Rx's ?Medication ?Instructions ?Recorded ferrous sulfate 324 mg (65 mg 324 mg PO BID #60 tabs 0 04/09/24 iron) tablet,delayed release acetaminophen 500 mg capsule 500 mg PO Q6H PRN pain #3 0 caps 11/02/24 benzonatate 100 mg capsule 100 mg PO BID PRN cough #20 caps 11/02/24 fluticasone propionate 50 1 spray intranasal QDAY #16 grams 11/02/24 mcg/actuation nasal spray,suspension (Flonase Allergy Relief) Allergies Allergy/AdvReac Type Severity Reaction Status Date / Time No Known Allergies Allergy Verified 01/27/25 10:00 Review of Systems Review of Systems Narrative Review of Systems: GEN: No fever, no chills, no weight loss, +global weakness EYES: No discharge, no visual changes, no pain HEENT: No ear pain, no congestion, no sore throat PULM: +shortness of breath, no cough, no congestion CV: No chest pain, no palpitations GI: No nausea, no vomiting, no diarrhea, no pain, no constipation : No frequency, no urgency, no dysuria MUSC/SKEL: No joint pain, no back pain SKIN: No rash NEURO: No headache Past Medical History Past Medical History CARDIAC: Positive Cardiac Disorders and Hypertension RESPIRATORY: Positive Sleep Apnea GASTROINTESTINAL: Positive Gastrointestinal Disorders, Gastrointestinal Bleed and Obesity REPRODUCTIVE: Positive Breast Cancer and Previous Pregnancies HEMATOLOGIC: Positive Blood Disorders and Anemia OTHER HISTORY: Positive Blood Transfusions, Chemotherapy, Radiation Therapy, Cancer and Breast Cancer Family History FAMILY HISTORY: Positive Family Respiratory Disorders, Family Cardiac Disorders, Family Cancer and Family Surgery Surgical History SURGICAL: Positive Lumpectomy Social History SMOKING STATUS: Never smoker ED Exam Narrative Physical exam: GENERAL APPEARANCE: alert and oriented x 4, well-developed, pale, no acute distress HEENT: Normocephalic, atraumatic; pupils equal, round, reactive to light; EOMI; mucous membranes pink, moist; oropharynx clear NECK: Supple LUNGS: CTABL; no wheezes, no rales, no rhonchi HEART: Regular rate, regular rhythm; normal S1, S2; no murmurs ABDOMEN: non distended; normal BS; soft, no tenderness, no guarding, no rebound; no masses, no organomegaly, no hernia BACK: no CVA tenderness EXTREMITIES: atraumatic; no edema NEUROLOGIC: awake; alert and oriented x4; cranial nerves II-XII grossly intact; no focal sensory or motor deficits PSYCHIATRIC: appropriate mood and affect SKIN: warm, dry, pale; no rashes Course Quality Measures none Orders Category Date Time Status Occult Blood,Stool (Nursing) NOW Care 01/27/25 12:09 Active Transfuse,blood/blood products NOW Care 01/27/25 11:50 Active Transfuse,blood/blood products NOW Care 01/27/25 14:22 Active CBC Stat Lab 01/27/25 10:25 Completed CMP [Comprehensive Metabolic Panel] Stat Lab 01/27/25 10:25 Completed Red Blood Cells Stat Lab 01/27/25 10:25 Results Type and Screen Stat Lab 01/27/25 10:25 Results Vital Signs Vital signs: Vital Signs Temperature 99.2 F 01/27/25 10:04 Pulse Rate 94 01/27/25 10:04 Respiratory Rate 16 01/27/25 10:04 Blood Pressure 158/62 H 01/27/25 10:04 Pulse Oximetry (%) 97 01/27/25 10:04 Oxygen Delivery Method Room Air 01/27/25 10:04 Pulse ox is 97% on room air which is adequate. Recheck / Abnormal Lab / Rx MDM Narrative MDM Narrative:: Jacqui Messer am scribing for and in the presence of Dr. Neff. Patient received three units of PRBC while in the ED. We reviewed all the results, analysis, and treatment plans. Patient is amenable to discharge. Strict return precautions were outlined. Patient data External records reviewed:: [facility] previous records Clinical information provided by:: patient Social determinants that could affect healthcare access:: none Patient has the following chronic illnesses:: left breast cancer s/p partial mastectomy and iron deficiency anemia requiring blood transfusions How is presenting disease/condition affected by chronic disease/condition?: exacerbated by Evaluation data The following diagnostics were reviewed and interpreted by me:: lab results Lab and/or radiology exams considered but not ordered:: None Interpretation Summary: H/H 5.8/19.8, patient severely anemic Medications / Prescriptions Medications or Prescriptions considered but not ordered:: None Medication administrations:: See above Consultations Consultation(s) initiated? (list below): No Diagnosis Recheck Differential Diagnosis: other (anemia, symptomatic anemia, dehydration ) Most likely diagnosis given after review of the tests above:: Anemia requiring blood transfusion Symptomatic anemia Admission Indicated Admission indicated?: not indicated Admission Request Was there a request for admission?: No Disposition Plan Disposition Plan: Discharge Discharge Attestation Discharge Attestation: The patient and all family members were given an opportunity to ask questions and understood the discharge instructions. Discharge instructions specifically effects, indications for sooner follow up or return to the emergency department, and the expected course of current diagnosis. Patient condition: Stable Discharge Plan Plan Patient Disposition: HOME (Self Care) Prescriptions/Referrals Prescriptions/Med Rec: No Action ferrous sulfate 324 mg (65 mg iron) tablet,delayed release (DR/EC) 324 mg PO BID Qty: 60 0RF benzonatate 100 mg capsule 100 mg PO BID PRN (Reason: cough) Qty: 20 0RF acetaminophen 500 mg capsule 500 mg PO Q6H PRN (Reason: pain) Qty: 30 0RF fluticasone propionate [Flonase Allergy Relief] 50 mcg/actuation spray,suspension 1 spray intranasal QDAY Qty: 16 0RF Rx Instructions: administer into each nostril diltiazem HCl 240 mg capsule,extended release 24hr 240 mg PO DAILY letrozole [Femara] 2.5 mg tablet 2.5 tab PO QDAY losartan 25 mg tablet 25 mg PO QDAY Referrals: No Primary/Family,Physician [Primary Care Provider] - In 1 week Problem List Clinical Impression: Anemia requiring transfusions, Symptomatic anemia, Transfusion of blood during current hospitalization Patient/Caregiver Discharge Instructions Education Materials: Anemia During Cancer, ED Anemia Type Not Specified Print Language: Occitan Stand Alone Forms: [employer] Info., Patient Portal Info Letter
--- NOTE | 2025-01-27 19:28 | PC.NURSE ---
Risk Control Consultant assumes care of patient at this time, pt is A/O x 3 with no c/o pain at this time. Bed in low position and locked with side rails up x 2 with call light in reach of patient. 1st of 3 unit of PRBC completed, pt tolerated well no s/s of reaction noted.
[2025-01-28] VITALS (16 sets, daily range): BP systolic 143–172; BP diastolic 56–93; PULSE 65–86; RESP 13–21; TEMP 36.7–36.9; O2SAT 95–98
== END 2025-01-28 05:11 | disposition home or self-care (01) ==
PROVIDERS: Emergency Provider Emergency Medicine
DX: D64.9 Anemia, unspecified (principal)
CPT/HCPCS: 36415; 36430; 80053; 85025; 86850; 86870; 86900; 86901; 86902; 86921; 86922; 99285; P9016

== ENCOUNTER → 2025-02-06 | Outpatient (CLI) | payer OTHER, SELFPAY ==
[2025-02-06 09:21] LABS: Basophils # (Auto) 0.1 Thou/mm3 (0.0-0.2); Basophils % (Auto) 2 % (0-2.5); Eosinophils # (Auto) 0.2 Thou/mm3 (0.0-0.5); Eosinophils % (Auto) 3 % (0-10); Hematocrit 33.6 % (36.0-46.0); Hemoglobin 10.1 g/dL (12.0-16.0); Immature Granulocytes % (Auto) 0 % (0-0); Immature Granulocytes Auto 0.02 Thou/mm3 (0.00-0.00); Lymphocytes # (Auto) 1.6 Thou/mm3 (1.0-4.8); Lymphocytes % (Auto) 30 % (10-50); Mean Corpuscular HGB Conc 30.1 g/dl (31.0-37.0); Mean Corpuscular Hemoglobin 24.9 pg (25.0-35.0); Mean Corpuscular Volume 83 fL (80-100); Monocytes # (Auto) 0.4 Thou/mm3 (0.0-0.8); Monocytes % (Auto) 7 % (0-12); Neutrophils # (Auto) 3.1 Thou/mm3 (1.8-7.7); Neutrophils % (Auto) 58 % (37-80); Nucleated Red Blood Cell % 0 /100 WBC (0); Platelet Count 241 Thou/mm3 (140-440); RDW Standard Deviation 71.1 fL (36.4-46.3); Red Blood Count 4.05 Miln/mm3 (4.00-5.20); White Blood Count 5.4 Thou/mm3 (3.6-11.0)
[2025-02-06 09:34] LABS: Alanine Aminotransferase 23 U/L (10-49); Albumin, Serum 3.9 gm/dL (3.4-4.8); Albumin/Globulin Ratio 1.7 (1.2-2.2); Alkaline Phosphatase 124 U/L (46-116); Anion Gap 9 (7-16); BUN/Creatinine Ratio 19 Ratio (12-20); Blood Urea Nitrogen 17 mg/dL (9-23); Calcium 9.3 mg/dL (8.3-10.6); Calcium (Corrected) 9.4 mg/dL (8.5-10.1); Carbon Dioxide 26.7 mMol/L (20.0-31.0); Chloride 103 mMol/L (98-107); Creatinine (Component) 0.9 mg/dL (0.6-1.3); Globulin 2.3 gm/dL (2.3-3.5); Glucose 119 mg/dL (74-106); Osmolality,Calculated 280 (275-295); Potassium 4.4 mMol/L (3.4-5.1); Sodium 139 mMol/L (136-145); Total Protein 6.2 gm/dL (5.7-8.2); eGFR > 60 See Note
== END | disposition home or self-care (01) ==
LOC: COPL 08:16
PROVIDERS: PCP Nurse Practitioner Family; Referring Provider Specialist; Visit Provider Specialist
DX: R10.32 Left lower quadrant pain (principal); R10.31 Right lower quadrant pain; D50.0 Iron deficiency anemia secondary to blood loss (chronic); R14.0 Abdominal distension (gaseous)
CPT/HCPCS: 36415; 80053; 85025

== ENCOUNTER 2025-02-08 11:05 | Day surgery (SDC) | payer OTHER, SELFPAY ==
[2025-02-07 14:31] VITALS: BMI 26.5
[2025-02-08] VITALS (9 sets, daily range): BP systolic 100–218; BP diastolic 36–108; PULSE 63–84; RESP 11–20; TEMP 36.4–36.6; O2SAT 92–99; BMI 45.3
[2025-02-08] MEDS: SODIUM CHLORIDE 0.9% 500 ML 500 ML 20 ML IV (12:15)
[2025-02-08] MEDS: DiphenhydrAMINE INJ 50 MG/ML VIAL 25 MG IVP (12:19)
[2025-02-08] MEDS: fentaNYL CIT INJ 50 mCg/ML AMP 2ML (ASD USE ONLY) IVP (12:22)
[2025-02-08] MEDS: MIDAZOLAM INJ 1 MG/ML VIAL 2 ML (ASD USE ONLY) 2 MG IVP (12:22)
== END 2025-02-08 13:55 | disposition home or self-care (01) ==
PROVIDERS: PCP Family Medicine; Referring Provider Specialist; Visit Provider Specialist
PROC: 0DBE8ZX Excision of Large Intestine, Via Natural or Artificial Opening Endoscopic, Diagnostic (ICD-10-PCS; CPT 45380; principal; 2025-02-08 12:00)
DX: K64.3 Fourth degree hemorrhoids (principal); D50.0 Iron deficiency anemia secondary to blood loss (chronic); K29.71 Gastritis, unspecified, with bleeding; I10 Essential (primary) hypertension; Z79.899 Other long term (current) drug therapy
CPT/HCPCS: 46221; 45378; A4649; J1200; J2250; J3010; J7040

== ENCOUNTER → 2025-02-20 | Outpatient (CLI) | payer OTHER, SELFPAY ==
[2025-02-20 09:38] LABS: Basophils # (Auto) 0.1 Thou/mm3 (0.0-0.2); Basophils % (Auto) 2 % (0-2.5); Eosinophils # (Auto) 0.2 Thou/mm3 (0.0-0.5); Eosinophils % (Auto) 3 % (0-10); Hematocrit 31.6 % (36.0-46.0); Hemoglobin 9.5 g/dL (12.0-16.0); Immature Granulocytes % (Auto) 0 % (0-0); Immature Granulocytes Auto 0.01 Thou/mm3 (0.00-0.00); Lymphocytes # (Auto) 1.5 Thou/mm3 (1.0-4.8); Lymphocytes % (Auto) 29 % (10-50); Mean Corpuscular HGB Conc 30.1 g/dl (31.0-37.0); Mean Corpuscular Hemoglobin 25.9 pg (25.0-35.0); Mean Corpuscular Volume 86 fL (80-100); Monocytes # (Auto) 0.4 Thou/mm3 (0.0-0.8); Monocytes % (Auto) 8 % (0-12); Neutrophils # (Auto) 2.9 Thou/mm3 (1.8-7.7); Neutrophils % (Auto) 57 % (37-80); Nucleated Red Blood Cell % 0 /100 WBC (0); Platelet Count 203 Thou/mm3 (140-440); RDW Standard Deviation 74.4 fL (36.4-46.3); Red Blood Count 3.67 Miln/mm3 (4.00-5.20)
[2025-02-20 09:49] LABS: Alanine Aminotransferase 21 U/L (10-49); Albumin, Serum 3.9 gm/dL (3.4-4.8); Albumin/Globulin Ratio 1.8 (1.2-2.2); Alkaline Phosphatase 120 U/L (46-116); Anion Gap 9 (7-16); Aspartate Amino Transferase 31 U/L (0-34); BUN/Creatinine Ratio 20 Ratio (12-20); Bilirubin,Total 0.7 mg/dL (0.3-1.2); Blood Urea Nitrogen 18 mg/dL (9-23); Calcium 9.8 mg/dL (8.3-10.6); Calcium (Corrected) 9.9 mg/dL (8.5-10.1); Carbon Dioxide 27.4 mMol/L (20.0-31.0); Chloride 104 mMol/L (98-107); Creatinine (Component) 0.9 mg/dL (0.6-1.3); Globulin 2.2 gm/dL (2.3-3.5); Glucose 124 mg/dL (74-106); Osmolality,Calculated 282 (275-295); Potassium 4.5 mMol/L (3.4-5.1); Sodium 140 mMol/L (136-145); Total Protein 6.1 gm/dL (5.7-8.2); eGFR > 60 See Note
== END | disposition home or self-care (01) ==
PROVIDERS: PCP Nurse Practitioner Family; Referring Provider Nurse Practitioner Family; Visit Provider Nurse Practitioner Family
DX: C50.412 Malignant neoplasm of upper-outer quadrant of left female breast (principal)
CPT/HCPCS: 36415; 80053; 85025

== ENCOUNTER 2025-02-27 08:50 | Outpatient (RCR) | payer OTHER, SELFPAY ==
[2025-01-30 09:11] LABS: Basophils # (Auto) 0.1 Thou/mm3 (0.0-0.2); Basophils % (Auto) 1 % (0-2.5); Eosinophils # (Auto) 0.2 Thou/mm3 (0.0-0.5); Eosinophils % (Auto) 4 % (0-10); Hematocrit 32.4 % (36.0-46.0); Hemoglobin 10.7 g/dL (12.0-16.0); Immature Granulocytes % (Auto) 0 % (0-0); Immature Granulocytes Auto 0.01 Thou/mm3 (0.00-0.00); Lymphocytes # (Auto) 1.4 Thou/mm3 (1.0-4.8); Lymphocytes % (Auto) 28 % (10-50); Mean Corpuscular Hemoglobin 24.5 pg (25.0-35.0); Mean Corpuscular Volume 74 fL (80-100); Monocytes # (Auto) 0.6 Thou/mm3 (0.0-0.8); Monocytes % (Auto) 12 % (0-12); Neutrophils # (Auto) 2.9 Thou/mm3 (1.8-7.7); Neutrophils % (Auto) 55 % (37-80); Nucleated Red Blood Cell % 0 /100 WBC (0); Platelet Count 262 Thou/mm3 (140-440); RDW Standard Deviation 56.6 fL (36.4-46.3); Red Blood Count 4.36 Miln/mm3 (4.00-5.20); White Blood Count 5.2 Thou/mm3 (3.6-11.0)
== END 2025-02-27 23:59 | disposition home or self-care (01) ==
LOC: SCTC 08:50
PROVIDERS: PCP Nurse Practitioner Family; Referring Provider Internal Medicine Hematology & Oncology; Visit Provider Internal Medicine Hematology & Oncology
DX: D50.9 Iron deficiency anemia, unspecified (principal); C50.412 Malignant neoplasm of upper-outer quadrant of left female breast; Z17.0 Estrogen receptor positive status [ER+]; Z17.21 Progesterone receptor positive status; Z17.32 Human epidermal growth factor receptor 2 negative status; Z90.12 Acquired absence of left breast and nipple; Z79.811 Long term (current) use of aromatase inhibitors; R91.8 Other nonspecific abnormal finding of lung field; K64.9 Unspecified hemorrhoids; K29.70 Gastritis, unspecified, without bleeding; M85.88 Other specified disorders of bone density and structure, other site
CPT/HCPCS: 85025; 96365; 99212; J2916; J7040; J7050; G0463

== ENCOUNTER 2025-03-06 13:01 | Outpatient (RCR) | payer OTHER, SELFPAY | END 2025-03-30 23:59 | disposition home or self-care (01) | LOC: SCTC 13:01 | PROVIDERS: PCP Nurse Practitioner Family; Referring Provider Nurse Practitioner Family; Visit Provider Internal Medicine Hematology & Oncology | DX: D50.9 Iron deficiency anemia, unspecified (principal); C50.412 Malignant neoplasm of upper-outer quadrant of left female breast; Z17.0 Estrogen receptor positive status [ER+]; Z17.21 Progesterone receptor positive status; Z17.32 Human epidermal growth factor receptor 2 negative status; Z90.12 Acquired absence of left breast and nipple; Z79.811 Long term (current) use of aromatase inhibitors; M85.88 Other specified disorders of bone density and structure, other site; Z87.19 Personal history of other diseases of the digestive system | CPT/HCPCS: 96365; J2916; J7050 ==

== ENCOUNTER 2025-04-10 12:56 | Emergency (ER) | payer OTHER, SELFPAY ==
[2025-04-10 13:12] VITALS: BP 147/73; PULSE 73; RESP 18; TEMP 37.6; O2SAT 95; BMI 46.0
--- NOTE | 2025-04-10 13:15 | PD.EDRME ---
Rapid Medical Screening Exam RME Arrival date/time: 04/10/25 12:56 69-year-old female with a history of hyperlipidemia and breast cancer was sent to the emergency room by the cancer treatment center for hemoglobin of 6.8 I have greeted and performed a focused initial assessment of this patient. A comprehensive ED assessment and evaluation of the patient, analysis of all test results, and completion of the medical decision making process will be conducted by additional ED providers. Chief Complaint: Recheck/Abnormal Lab/Rx Vital signs: Vital Signs Temperature 99.6 F 04/10/25 13:12 Pulse Rate 73 04/10/25 13:12 Respiratory Rate 18 04/10/25 13:12 Blood Pressure 147/73 H 04/10/25 13:12 Pulse Oximetry (%) 95 04/10/25 13:12 Oxygen Delivery Method Room Air 04/10/25 13:12 Vital signs reviewed by provider: Yes
[2025-04-10 14:17] LABS: INR 1.0 (0.9-1.3); Partial Thromboplastin Time 24.2 Seconds (22.0-36.0); Prothrombin Time 11.3 Seconds (9.0-12.2)
--- NOTE | 2025-04-10 15:03 | PD.EDADULT ---
ED General RME/HPI General Chief complaint: Recheck/Abnormal Lab/Rx Stated complaint: sent from [facility] for blood transfusion Time Seen by Provider: 04/10/25 14:33 Arrival date/time: 04/10/25 12:56 CC: Generalized weakness and anemia HPI patient is a cancer patient sent over for CT PE has a history of breast cancer denies fever chills chest pain shortness of breath or difficulty breathing states that she is not in any acute distress and [facility] was unable to transfuse at this time. The patient appears not in any acute distress. RME / HPI RME / HPI narrative: 04/10/25 12:56 69-year-old female with a history of hyperlipidemia and breast cancer was sent to the emergency room by the cancer [facility] for hemoglobin of 6.8 I have greeted and performed a focused initial assessment of this patient. A comprehensive ED assessment and evaluation of the patient, analysis of all test results, and completion of the medical decision making process will be conducted by additional ED providers. Related Data Home Medications ?Medication ?Instructions ?Recorded ?Confirmed diltiazem HCl 240 mg 240 mg PO DAILY 05/14/22 02/08/25 capsule,extended release 24 hr letrozole 2.5 mg tablet (Femara) 2.5 tab PO QDAY 05/14/22 02/08/25 losartan 25 mg tablet 25 mg PO QDAY 05/06/24 02/08/25 Allergies Allergy/AdvReac Type Severity Reaction Status Date / Time No Known Allergies Allergy Verified 04/10/25 13:00 Review of Systems Review of Systems Narrative Review of Systems: GEN: No fever, no chills, no weight loss EYES: No discharge, no visual changes, no pain HEENT: No ear pain, no congestion, no sore throat PULM: No shortness of breath, no cough, no congestion CV: No chest pain, no dyspnea on exertion, no palpitations GI: No nausea, no vomiting, no diarrhea, no pain, no constipation : No frequency, no urgency, no dysuria MUSC/SKEL: No joint pain, no back pain SKIN: No rash PSYCH: No hallucinations, no depression HEME/LYMPH: No easy bleeding or bruising tendencies NEURO: + weakness, no headache Past Medical History Past Medical History NEUROLOGIC: Negative Neurological Disorders or Seizures CARDIAC: Positive Cardiac Disorders, Hypercholesterolemia and Hypertension; Negative Congestive Heart Failure RESPIRATORY: Positive Sleep Apnea; Negative Chronic Obstructive Pulmonary Disease (COPD) GASTROINTESTINAL: Positive Gastrointestinal Disorders, Gastrointestinal Bleed and Obesity; Negative Hepatitis GENITOURINARY: Negative Genitourinary Disorders or Renal Disease REPRODUCTIVE: Positive Breast Cancer and Previous Pregnancies MUSCULOSKELETAL: Negative Musculoskeletal Disorders ENDOCRINE: Negative Endocrine Disorders, Diabetes Mellitus Type 1 or Diabetes Mellitus Type 2 HEMATOLOGIC: Positive Blood Disorders and Anemia OTHER HISTORY: Positive Chemotherapy, Radiation Therapy, Cancer and Breast Cancer; Negative Hospitalization, Autoimmune Disease, Falls, Blood Transfusions, Blood Transfusion Reaction, Anesthesia Reactions, Organ Transplant, Hyperbaric Therapy, MRSA, VRSA, Vancomycin-Resistant Enterococci, Human Immunodeficiency Virus (HIV), Chicken Pox, Measles, Mumps, Rubella (Green[place]ic Measles), Pertussis or Clostridium Difficile Family History FAMILY HISTORY: Positive Family Respiratory Disorders, Family Cardiac Disorders, Family Cancer and Family Surgery; Negative Family Psychiatric Problems, Family Gastrointestinal Problems or Family Anesthesia Reaction Surgical History SURGICAL: Positive Lumpectomy (LEFT X3 LYMPH NODES REMOVED); Negative Cardiac Surgery, Endocrine Surgery, Thyroidectomy, Ear Surgery, Abdominal Surgery or Organ Transplant Social History SMOKING STATUS: Never smoker ED Exam Narrative Physical exam: [General: Obese not in any acute distress Head normocephalic HEENT: Within acceptable limits Neck is supple nontender Chest equal chest rise nontender to palpation Respiratory: Clear to auscultation no wheezes crackles or rubs CV: Rate rhythm is regular no murmurs rubs or clicks Abdomen is grossly distended secondary to body habitus soft nontender no masses positive bowel sounds all 4 quadrants Back: No CVA tenderness no spinous process tenderness from cervical spine thoracic and lumbar spine Skin: Pale, blanched conjunctiva, otherwise skin is intact no petechiae rash induration ulceration or crepitus Extremities: Moving all extremity against resistance cap refill less than 2 seconds neurosensory intact Neuro: Awake alert oriented x3 Glascow coma 15 no focal deficits] Course Quality Measures none Orders Category Date Time Status Antibody Identification Stat Lab 04/10/25 13:45 Completed PT [Prothrombin Time with INR] Stat Lab 04/10/25 13:45 Completed PTT [Partial Thromboplastin Time] Stat Lab 04/10/25 13:45 Completed Type and Screen Stat Lab 04/10/25 13:45 Completed prbc [Red Blood Cells] Stat Lab 04/10/25 13:45 Completed Furosemide [Lasix Inj] Med 04/10/25 15:06 Discontinued 20 mg IVP X1 ONE Furosemide [Lasix Inj] Med 04/11/25 17:01 Discontinued 20 mg IVP X1 ONE Vital Signs Vital signs: Vital Signs Temperature 99.6 F 04/10/25 13:12 Pulse Rate 73 04/10/25 13:12 Respiratory Rate 18 04/10/25 13:12 Blood Pressure 147/73 H 04/10/25 13:12 Pulse Oximetry (%) 95 04/10/25 13:12 Oxygen Delivery Method Room Air 04/10/25 13:12 Discharge Plan Plan Patient Disposition: HOME (Self Care) Patient condition on transfer: Stable Prescriptions/Referrals Prescriptions/Med Rec: No Action diltiazem HCl 240 mg capsule,extended release 24hr 240 mg PO DAILY letrozole [Femara] 2.5 mg tablet 2.5 tab PO QDAY losartan 25 mg tablet 25 mg PO QDAY Referrals: [place] INTERN [Primary Care Provider] - In 1 week Problem List Clinical Impression: Anemia requiring transfusions Patient/Caregiver Discharge Instructions Education Materials: Anemia Print Language: Togolese Stand Alone Forms: [employer] Info., Work/School Release, Patient Portal Info Letter PA/REHAB AIDE Supervising Physician PA/REHAB AIDE Supervising Physician: Migue Tilley ENP, MD Attestation MD Attestation The patient was seen by the midlevel practitioner. I, the co-signing physician, was present during the entire ER visit. While I did not physically examine the patient, I was available for consultation as needed. I agree with the plan and documentation. MDM Clinical Information Provided by patient and spouse Medical Records Reviewed [facility] Meds/Rx Considered, not Ordered None Labs/Rad/Tests considered, not Ordered None Chronic Illness/Social Conditions Add or document further as needed: Breast cancer obesity EKG EKG not done Lab Interpretation Lab(s) interpretation(s): Hemoglobin of 6.8 hematocrit of 23.5 no leukocytosis no thrombocytopenia Imaging Radiology reports / interpretation(s): Will transfuse 2 units and discharged home. Medication Administration(s) Medication Administration History Discontinued Medications Furosemide (Furosemide Inj 10 Mg/Ml Vial 2 Ml) 20 mg IVP X1 ONE Stop: 04/10/25 15:07 Last Admin: 04/11/25 09:10 Dose: Not Given Documented By: KM Non-Admin Reason: Cancelled by Provider Furosemide (Furosemide Inj 10 Mg/Ml Vial 2 Ml) 20 mg IVP X1 ONE Stop: 04/11/25 17:02 Last Admin: 04/11/25 17:42 Dose: 20 mg Documented By: BRYCE
[2025-04-10 15:08] VITALS: BP 144/69; PULSE 72; RESP 21; TEMP 37; O2SAT 99
[2025-04-10 16:07] VITALS: BP 121/43; PULSE 70; RESP 20; TEMP 36.8; O2SAT 96
[2025-04-10 18:30] VITALS: BP 153/55; PULSE 69; RESP 22; TEMP 36.7; O2SAT 97
[2025-04-10 19:33] VITALS: BP 180/64; PULSE 63; RESP 19; TEMP 37.1; O2SAT 98
[2025-04-10 22:04] VITALS: BP 111/68; PULSE 67; RESP 18; TEMP 36.6; O2SAT 96
[2025-04-11] VITALS (14 sets, daily range): BP systolic 123–165; BP diastolic 56–99; PULSE 65–78; RESP 16–19; TEMP 36.6–36.8; O2SAT 95–100
--- NOTE | 2025-04-11 06:09 | PC.NURSE ---
SPOKE TO POLI FROM LAB AND ASKED FOR AN ETA ON PT'S BLOOD. PER POLI HE IS WORKING ON IT AND WILL BE READY FOR PICKUP IN APPROX 10 MIN.
--- NOTE | 2025-04-11 06:27 | PC.NURSE ---
THIS BULLARD MACHINE OPERATOR RECEIVED A CALL FROM PLOI FROM BLOOD WHO STATED PT'S BLOOD WILL NEED TO BE SENT OUT FOR FURTHER GENOTYPE TESTING DUE TO PT HAVE ANTIBODY. THEREFORE AT THIS TIME PT'S BLOOD UNIT FOR TRANSFUSION IS NOT READY. ASKED POLI TO HAVE LEAD BLOOD BLANK TECH (SHERICE) CALL WHEN SHE ARRIVES TO FURTHER UPDATE US WITH PTS BLOOD UNIT STATUS.
--- NOTE | 2025-04-11 09:00 | PC.NURSE ---
lab called for update on PRBC's. lab states they will call back with update.
[2025-04-11] MEDS: FUROSEMIDE INJ 10 MG/ML VIAL 2 ML 20 MG IVP (17:42)
== END 2025-04-11 18:00 | disposition home or self-care (01) ==
PROVIDERS: Nurse Practitioner Family; Emergency Provider Family Medicine; PCP Nurse Practitioner Family
DX: C50.919 Malignant neoplasm of unspecified site of unspecified female breast (principal); D63.0 Anemia in neoplastic disease; I10 Essential (primary) hypertension; E78.00 Pure hypercholesterolemia, unspecified; E66.9 Obesity, unspecified; Z68.42 Body mass index [BMI] 45.0-49.9, adult
CPT/HCPCS: 36415; 36430; 80053; 85025; 85610; 85730; 86850; 86870; 86880; 86900; 86901; 86902; 86921; 86922; 99284; J1938; P9016

== ENCOUNTER → 2025-04-10 | Outpatient (CLI) | payer OTHER, SELFPAY ==
[2025-04-10 10:54] LABS: Basophils # (Auto) 0.1 Thou/mm3 (0.0-0.2); Basophils % (Auto) 2 % (0-2.5); Eosinophils # (Auto) 0.2 Thou/mm3 (0.0-0.5); Eosinophils % (Auto) 3 % (0-10); Hematocrit 23.5 % (36.0-46.0); Immature Granulocytes Auto 0.01 Thou/mm3 (0.00-0.00); Immature Reticulocyte Fraction 12.8 % (3.0-15.9); Lymphocytes # (Auto) 1.6 Thou/mm3 (1.0-4.8); Lymphocytes % (Auto) 33 % (10-50); Mean Corpuscular HGB Conc 28.9 g/dl (31.0-37.0); Mean Corpuscular Hemoglobin 23.1 pg (25.0-35.0); Mean Corpuscular Volume 80 fL (80-100); Monocytes # (Auto) 0.4 Thou/mm3 (0.0-0.8); Monocytes % (Auto) 9 % (0-12); Neutrophils # (Auto) 2.5 Thou/mm3 (1.8-7.7); Neutrophils % (Auto) 53 % (37-80); Nucleated Red Blood Cell # 0.00 Thou/mm3 (0.00-0.00); Nucleated Red Blood Cell % 0 /100 WBC (0); Platelet Count 249 Thou/mm3 (140-440); RDW Standard Deviation 53.1 fL (36.4-46.3); Red Blood Count 2.94 Miln/mm3 (4.00-5.20); Reticulocyte % (Auto) 2.6 % (0.5-1.5); Reticulocyte Absolute Auto 76.4 Biln/L (25.0-75.0); Reticulocyte Hgb Content 16.2 pg (28.0-35.0); White Blood Count 4.7 Thou/mm3 (3.6-11.0)
[2025-04-10 11:10] LABS: Folate 10.16 ng/mL (>5.38); Vitamin B12 691 pg/mL (211-911)
[2025-04-10 11:11] LABS: Hemoglobin 6.8 g/dL (12.0-16.0)
[2025-04-10 11:12] LABS: Alanine Aminotransferase 14 U/L (10-49); Albumin, Serum 3.8 gm/dL (3.4-4.8); Albumin/Globulin Ratio 1.7 (1.2-2.2); Alkaline Phosphatase 122 U/L (46-116); Anion Gap 9 (7-16); Aspartate Amino Transferase 23 U/L (0-34); BUN/Creatinine Ratio 19 Ratio (12-20); Bilirubin,Total 0.6 mg/dL (0.3-1.2); Blood Urea Nitrogen 23 mg/dL (9-23); Calcium 8.7 mg/dL (8.3-10.6); Calcium (Corrected) 8.9 mg/dL (8.5-10.1); Carbon Dioxide 25.8 mMol/L (20.0-31.0); Chloride 109 mMol/L (98-107); Creatinine (Component) 1.2 mg/dL (0.6-1.3); Ferritin 6 ng/mL (7.3-270.7); Globulin 2.3 gm/dL (2.3-3.5); Glucose 123 mg/dL (74-106); Iron 13 mcg/dL (50-170); LDH (Lactate Dehydrogenase) 168 U/L (120-246); Osmolality,Calculated 291 (275-295); Percent Iron Saturation 3 % (20-55); Potassium 4.6 mMol/L (3.4-5.1); Sodium 144 mMol/L (136-145); Total Iron Binding Capacity 354 mcg/dL (250-425); Total Protein 6.1 gm/dL (5.7-8.2); Unsaturated Iron Binding 341 (225-295); eGFR 49 See Note
[2025-04-17 06:56] LABS: Haptoglobin* 125 mg/dL (43-212)
== END | disposition home or self-care (01) ==
LOC: SCTO 09:18
PROVIDERS: PCP Family Medicine; Referring Provider Nurse Practitioner Family; Visit Provider Nurse Practitioner Family
DX: C50.412 Malignant neoplasm of upper-outer quadrant of left female breast (principal)
CPT/HCPCS: 36415; 80053; 82607; 82728; 82746; 83010; 83540; 83550; 83615; 85025; 85046

== ENCOUNTER → 2025-04-28 | Outpatient (CLI) | payer OTHER, SELFPAY ==
--- NOTE | 2025-04-28 12:00 | XR_ITS ---
Examination: Bone densitometry Date and time of exam:April 28, 2025, 1227 hours INDICATIONS: Menopause age 49 breast carcinoma diagnosis vitamin D and calcium 2 years, personal history osteopenia. Technique: Lumbar spine and hip total bone mineralization values of an calculated. Peak reference and age match control results have been displayed. Findings: Lumbar spine total bone mineralization is0.962 gm/cm2. This is 0.8 standard deviations below peak reference. This is 1.4 standard deviations above age-matched controls. Hip total bone mineralization is 0.958 gm/cm2 This is 0.0 standard deviations at peak reference. This is 1.5 standard deviations above age-matched controls Impression: There is normal mineralization based on lumbar spine measurements. There is osteoporosis based on hip measurements Lumbar mineralization is increased 8.0% compared with April 27, 2023 Hip mineralization is decreased 7.2% compared with April 27, 2023
== END | disposition home or self-care (01) ==
PROVIDERS: PCP Nurse Practitioner Family; Referring Provider Internal Medicine Hematology & Oncology; Visit Provider Internal Medicine Hematology & Oncology
DX: M81.0 Age-related osteoporosis without current pathological fracture (principal); C50.412 Malignant neoplasm of upper-outer quadrant of left female breast
CPT/HCPCS: 77080

== ENCOUNTER → 2025-05-02 | Outpatient (CLI) | payer OTHER, SELFPAY ==
[2025-05-02 09:51] LABS: Basophils # (Auto) 0.1 Thou/mm3 (0.0-0.2); Basophils % (Auto) 2 % (0-2.5); Eosinophils # (Auto) 0.2 Thou/mm3 (0.0-0.5); Eosinophils % (Auto) 4 % (0-10); Hematocrit 26.1 % (36.0-46.0); Immature Granulocytes Auto 0.01 Thou/mm3 (0.00-0.00); Immature Reticulocyte Fraction 16.4 % (3.0-15.9); Lymphocytes # (Auto) 1.8 Thou/mm3 (1.0-4.8); Lymphocytes % (Auto) 36 % (10-50); Mean Corpuscular HGB Conc 29.5 g/dl (31.0-37.0); Mean Corpuscular Hemoglobin 23.3 pg (25.0-35.0); Mean Corpuscular Volume 79 fL (80-100); Monocytes # (Auto) 0.4 Thou/mm3 (0.0-0.8); Monocytes % (Auto) 8 % (0-12); Neutrophils # (Auto) 2.4 Thou/mm3 (1.8-7.7); Neutrophils % (Auto) 50 % (37-80); Nucleated Red Blood Cell # 0.00 Thou/mm3 (0.00-0.00); Nucleated Red Blood Cell % 0 /100 WBC (0); Platelet Count 301 Thou/mm3 (140-440); RDW Standard Deviation 53.1 fL (36.4-46.3); Red Blood Count 3.30 Miln/mm3 (4.00-5.20); Reticulocyte % (Auto) 2.2 % (0.5-1.5); Reticulocyte Absolute Auto 72.6 Biln/L (25.0-75.0); Reticulocyte Hgb Content 18.8 pg (28.0-35.0); White Blood Count 4.9 Thou/mm3 (3.6-11.0)
[2025-05-02 09:52] LABS: Hemoglobin 7.7 g/dL (12.0-16.0)
[2025-05-02 10:03] LABS: Alanine Aminotransferase 16 U/L (10-49); Albumin, Serum 3.8 gm/dL (3.4-4.8); Albumin/Globulin Ratio 1.6 (1.2-2.2); Alkaline Phosphatase 116 U/L (46-116); Anion Gap 9 (7-16); Aspartate Amino Transferase 25 U/L (0-34); BUN/Creatinine Ratio 18 Ratio (12-20); Bilirubin,Total 0.6 mg/dL (0.3-1.2); Blood Urea Nitrogen 18 mg/dL (9-23); Calcium 9.3 mg/dL (8.3-10.6); Calcium (Corrected) 9.5 mg/dL (8.5-10.1); Carbon Dioxide 26.1 mMol/L (20.0-31.0); Chloride 107 mMol/L (98-107); Creatinine (Component) 1.0 mg/dL (0.6-1.3); Folate 11.76 ng/mL (>5.38); Globulin 2.4 gm/dL (2.3-3.5); Glucose 116 mg/dL (74-106); LDH (Lactate Dehydrogenase) 170 U/L (120-246); Osmolality,Calculated 286 (275-295); Potassium 4.3 mMol/L (3.4-5.1); Sodium 142 mMol/L (136-145); Total Protein 6.2 gm/dL (5.7-8.2); Vitamin B12 641 pg/mL (211-911); eGFR > 60 See Note
[2025-05-02 10:05] LABS: Ferritin 5 ng/mL (7.3-270.7); Iron 14 mcg/dL (50-170); Percent Iron Saturation 3 % (20-55); Total Iron Binding Capacity 360 mcg/dL (250-425); Unsaturated Iron Binding 346 (225-295)
[2025-05-09 06:43] LABS: Haptoglobin* 133 mg/dL (43-212)
== END | disposition home or self-care (01) ==
LOC: SCTO 08:07
PROVIDERS: PCP Nurse Practitioner Family; Referring Provider Nurse Practitioner Family; Visit Provider Nurse Practitioner Family
DX: C50.412 Malignant neoplasm of upper-outer quadrant of left female breast (principal)
CPT/HCPCS: 36415; 80053; 82607; 82728; 82746; 83010; 83540; 83550; 83615; 85025; 85046

== ENCOUNTER 2025-05-04 10:22 | Outpatient (RCR) | payer OTHER, SELFPAY | END 2025-05-30 23:59 | disposition home or self-care (01) | LOC: SCTC 10:22 | PROVIDERS: PCP Nurse Practitioner Family; Referring Provider Nurse Practitioner Family; Visit Provider Nurse Practitioner Family | DX: D64.9 Anemia, unspecified (principal); M81.0 Age-related osteoporosis without current pathological fracture; C50.412 Malignant neoplasm of upper-outer quadrant of left female breast; Z17.0 Estrogen receptor positive status [ER+]; Z17.21 Progesterone receptor positive status; Z17.32 Human epidermal growth factor receptor 2 negative status; Z90.12 Acquired absence of left breast and nipple; Z79.811 Long term (current) use of aromatase inhibitors; K92.2 Gastrointestinal hemorrhage, unspecified; K64.9 Unspecified hemorrhoids | CPT/HCPCS: 99212; G0463 ==

== ENCOUNTER 2025-05-13 10:36 | Emergency (ER) | payer OTHER, SELFPAY ==
[2025-05-13] VITALS (15 sets, daily range): BP systolic 98–164; BP diastolic 47–85; PULSE 64–88; RESP 16–20; TEMP 36.6–37.6; O2SAT 96–99; BMI 47.0
--- NOTE | 2025-05-13 11:13 | PD.EDRME ---
Rapid Medical Screening Exam RME Arrival date/time: 05/13/25 10:36 Chief Complaint: Recheck/Abnormal Lab/Rx Time Seen by Provider: 05/13/25 11:00 Vital signs: Vital Signs Temperature 98.4 F 05/13/25 10:55 Pulse Rate 88 05/13/25 10:55 Respiratory Rate 18 05/13/25 10:55 Blood Pressure 131/74 H 05/13/25 10:55 Pulse Oximetry (%) 98 05/13/25 10:55 Oxygen Delivery Method Room Air 05/13/25 10:55 RME Narrative: 69-year-old female followed by cancer center here for consideration of blood transfusion. States was told she needed blood that her hemoglobin was in the sevens. Reports has had a total of 10 blood transfusions. History of breast cancer in remission 7 years. Currently being worked up for cause of her new anemia. Had a recent colonoscopy. And was told they stop the problem.
--- NOTE | 2025-05-13 11:34 | PD.EDRECHK ---
ED Recheck Abnl Lab Rx-RME/HPI General Chief Complaint: Recheck/Abnormal Lab/Rx Stated Complaint: LOW HGB, LIGHT HEADED Time Seen by Provider: 05/13/25 11:00 Arrival date/time: 05/13/25 10:36 RME / HPI RME / HPI narrative: 69-year-old female followed by cancer center here for consideration of blood transfusion. States was told she needed blood that her hemoglobin was in the sevens. Reports has had a total of 10 blood transfusions. History of breast cancer in remission 7 years. Currently being worked up for cause of her new anemia. Had a recent colonoscopy. And was told they stop the problem. DR. MORA MAIN ED EVALUATION: 69-year-old female with past medical history of left breast cancer status post partial mastectomy (in remission ?7 years) and iron deficiency anemia presents to the Emergency Department for evaluation of anemia and possible blood transfusion. Patient was told by her doctor that she had a low hemoglobin and transfusion was being arranged, but after one week without coordination, she is now experiencing lightheadedness and requests transfusion. She reports a history of approximately 10 prior transfusions. She is currently being worked up for new anemia, recently underwent colonoscopy, and was told the problem was addressed. No chest pain. No shortness of breath. No syncope. No nausea, vomiting, or diarrhea. No fevers or chills. No cough or congestion. Related Data Home Medications ?Medication ?Instructions ?Recorded ?Confirmed diltiazem HCl 240 mg 240 mg PO DAILY 05/14/22 02/08/25 capsule,extended release 24 hr letrozole 2.5 mg tablet (Femara) 2.5 tab PO QDAY 05/14/22 02/08/25 losartan 25 mg tablet 25 mg PO QDAY 05/06/24 02/08/25 Allergies Allergy/AdvReac Type Severity Reaction Status Date / Time No Known Allergies Allergy Verified 04/10/25 13:00 Review of Systems Review of Systems Systems Reviewed: All systems reviewed, normal except as documented Past Medical History Past Medical History CARDIAC: Positive Cardiac Disorders and Hypertension RESPIRATORY: Positive Sleep Apnea GASTROINTESTINAL: Positive Gastrointestinal Disorders, Gastrointestinal Bleed and Obesity REPRODUCTIVE: Positive Breast Cancer and Previous Pregnancies HEMATOLOGIC: Positive Blood Disorders and Anemia OTHER HISTORY: Positive Blood Transfusions, Chemotherapy, Radiation Therapy, Cancer and Breast Cancer Family History FAMILY HISTORY: Positive Family Respiratory Disorders, Family Cardiac Disorders, Family Cancer and Family Surgery Surgical History SURGICAL: Positive Lumpectomy Social History SMOKING STATUS: Never smoker SUBSTANCE USE: does not use ALCOHOL: Never ED Exam Narrative Physical exam: GENERAL APPEARANCE: alert and oriented x 4, well-developed, well-nourished, no acute distress, looks pale VITALS: All vitals were reviewed and the pulse ox is 98% on room air, which is normal according to my interpretation. HEENT: Normocephalic, atraumatic; pupils equal, round, reactive to light; EOMI; mucous membranes pink, moist; oropharynx clear NECK: Supple LUNGS: CTABL; no wheezes, no rales, no rhonchi HEART: Regular rate, regular rhythm; normal S1, S2; no murmurs ABDOMEN: non distended; normal BS; soft, no tenderness, no guarding, no rebound; no masses, no organomegaly, no hernia BACK: no CVA tenderness EXTREMITIES: atraumatic; no edema NEUROLOGIC: awake; alert and oriented x4; cranial nerves II-XII grossly intact; no focal sensory or motor deficits PSYCHIATRIC: appropriate mood and affect SKIN: warm, dry, pallor; no rashes Course Quality Measures none Orders Category Date Time Status Insert IV NOW Care 05/13/25 11:11 Active Transfuse,blood/blood products NOW Care 05/13/25 14:06 Active Antibody Identification Stat Lab 05/13/25 11:46 Results CBC Stat Lab 05/13/25 11:46 Completed CMP [Comprehensive Metabolic Panel] Stat Lab 05/13/25 11:46 Completed INR [Prothrombin Time with INR] Stat Lab 05/13/25 11:46 [address]pleted Path Review Blood Smear Stat Lab 05/13/25 11:46 Completed Red Blood Cells Stat Lab 05/13/25 11:46 Results Type and Screen Stat Lab 05/13/25 11:46 Results Vital Signs Vital signs: Vital Signs Temperature 98.4 F 05/13/25 10:55 Pulse Rate 88 05/13/25 10:55 Respiratory Rate 18 05/13/25 10:55 Blood Pressure 131/74 H 05/13/25 10:55 Pulse Oximetry (%) 98 05/13/25 10:55 Oxygen Delivery Method Room Air 05/13/25 10:55 Recheck / Abnormal Lab / Rx MDM Narrative MDM Narrative:: 69-year-old female with past medical history of breast cancer in remission and iron deficiency anemia with chief complaint of symptomatic anemia requesting blood transfusion. Patient has lightheadedness without chest pain, dyspnea, or active bleeding. Labs were ordered including CBCs, CMP, and INR. Plan for transfusion as indicated by hemoglobin level and clinical status. 1407: Hemoglobin is back at 6.8, we will transfuse the patient with 2 units of blood. Then, plan to discharge. Annette Messer am scribing for and in the presence of Dr. Mora. Patient data External records reviewed:: [facility] previous records Clinical information provided by:: patient Social determinants that could affect healthcare access:: none Patient has the following chronic illnesses:: Left breast cancer status post partial mastectomy (in remission ?7 years) and iron deficiency anemia. How is presenting disease/condition affected by chronic disease/condition?: exacerbated by Evaluation data The following diagnostics were reviewed and interpreted by me:: lab results Lab and/or radiology exams considered but not ordered:: none Interpretation Summary: See MDM narrative above. Medications / Prescriptions Medications or Prescriptions considered but not ordered:: none Medication administrations:: see above if any Consultations Consultation(s) initiated? (list below): No Diagnosis Recheck Differential Diagnosis: other (Differential diagnoses include iron deficiency anemia from chronic GI blood loss, anemia of chronic disease, chemotherapy-related bone marrow suppression, myelodysplastic syndrome, or recurrent malignancy.) Most likely diagnosis given after review of the tests above:: Anemia requiring transfusions Tranfusion of blood during current hospitalization Admission Indicated Admission indicated?: not indicated Admission Request Was there a request for admission?: No Disposition Plan Disposition Plan: Discharge Discharge Attestation Discharge Attestation: The patient and all family members were given an opportunity to ask questions and understood the discharge instructions. Discharge instructions specifically effects, indications for sooner follow up or return to the emergency department, and the expected course of current diagnosis. Patient condition: Stable Discharge Plan Plan Patient Disposition: HOME (Self Care) Prescriptions/Referrals Prescriptions/Med Rec: No Action diltiazem HCl 240 mg capsule,extended release 24hr 240 mg PO DAILY letrozole [Femara] 2.5 mg tablet 2.5 tab PO QDAY losartan 25 mg tablet 25 mg PO QDAY Referrals: Mirian Park OIL REFINER [Primary Care Provider] - In 1 week Problem List Clinical Impression: Anemia requiring transfusions, Transfusion of blood during current hospitalization Patient/Caregiver Discharge Instructions Education Materials: ED Anemia Type Not Specified Print Language: Sinhala Stand Alone Forms: [facility] Info., Patient Portal Info Letter
[2025-05-13 12:10] LABS: Basophils # (Auto) 0.1 Thou/mm3 (0.0-0.2); Basophils % (Auto) 2 % (0-2.5); Eosinophils # (Auto) 0.2 Thou/mm3 (0.0-0.5); Eosinophils % (Auto) 3 % (0-10); Hematocrit 24.1 % (36.0-46.0); Immature Granulocytes Auto 0.01 Thou/mm3 (0.00-0.00); Lymphocytes # (Auto) 1.5 Thou/mm3 (1.0-4.8); Lymphocytes % (Auto) 31 % (10-50); Mean Corpuscular HGB Conc 28.6 g/dl (31.0-37.0); Mean Corpuscular Hemoglobin 21.7 pg (25.0-35.0); Mean Corpuscular Volume 76 fL (80-100); Monocytes # (Auto) 0.4 Thou/mm3 (0.0-0.8); Monocytes % (Auto) 8 % (0-12); Neutrophils # (Auto) 2.7 Thou/mm3 (1.8-7.7); Neutrophils % (Auto) 56 % (37-80); Nucleated Red Blood Cell # 0.00 Thou/mm3 (0.00-0.00); Nucleated Red Blood Cell % 0 /100 WBC (0); Platelet Count 260 Thou/mm3 (140-440); RDW Standard Deviation 48.6 fL (36.4-46.3); Red Blood Count 3.18 Miln/mm3 (4.00-5.20); White Blood Count 4.8 Thou/mm3 (3.6-11.0)
[2025-05-13 12:19] LABS: Hemoglobin 6.9 g/dL (12.0-16.0)
[2025-05-13 12:22] LABS: INR 1.0 (0.9-1.3); Prothrombin Time 11.2 Seconds (9.0-12.2)
[2025-05-13 12:26] LABS: Alanine Aminotransferase 12 U/L (10-49); Albumin, Serum 3.7 gm/dL (3.4-4.8); Albumin/Globulin Ratio 1.5 (1.2-2.2); Alkaline Phosphatase 103 U/L (46-116); Anion Gap 8 (7-16); Aspartate Amino Transferase 21 U/L (0-34); BUN/Creatinine Ratio 12 Ratio (12-20); Bilirubin,Total 0.7 mg/dL (0.3-1.2); Blood Urea Nitrogen 12 mg/dL (9-23); Calcium 8.9 mg/dL (8.3-10.6); Calcium (Corrected) 9.1 mg/dL (8.5-10.1); Carbon Dioxide 25.4 mMol/L (20.0-31.0); Chloride 110 mMol/L (98-107); Creatinine (Component) 1.0 mg/dL (0.6-1.3); Estimated Creatinine Clearance 56.3 mL/min (>60); Globulin 2.4 gm/dL (2.3-3.5); Glucose 180 mg/dL (74-106); Osmolality,Calculated 289 (275-295); Potassium 4.8 mMol/L (3.4-5.1); Sodium 143 mMol/L (136-145); Total Protein 6.1 gm/dL (5.7-8.2); eGFR > 60 See Note
[2025-05-13 16:41] LABS: Path Review Blood Smear Sent to Pathologist
--- NOTE | 2025-05-13 18:12 | PD.EDADDENDU ---
Emergency Room Addendum Addendum Narrative: 1800: Care assumed from Dr. Neff, the previous shift emergency physician. Past medical, surgical, social and family history reviewed. Vitals and home medications reviewed. Results and treatment plan discussed. I will assume the care of the patient at this time and will follow the patient, pending . Please refer to the emergency department record for history and examination from initial visit.
== END 2025-05-13 23:09 | disposition home or self-care (01) ==
PROVIDERS: Physician Assistant; Emergency Provider Emergency Medicine; PCP Nurse Practitioner Family
DX: D50.9 Iron deficiency anemia, unspecified (principal); Z85.3 Personal history of malignant neoplasm of breast; Z90.12 Acquired absence of left breast and nipple
CPT/HCPCS: 36415; 36430; 80053; 85025; 85610; 86850; 86870; 86900; 86901; 86902; 86921; 86922; 99284; P9016

== ENCOUNTER → 2025-05-30 | Outpatient (CLI) | payer OTHER, SELFPAY ==
[2025-05-30 09:09] LABS: Basophils # (Auto) 0.1 Thou/mm3 (0.0-0.2); Basophils % (Auto) 2 % (0-2.5); Eosinophils # (Auto) 0.2 Thou/mm3 (0.0-0.5); Eosinophils % (Auto) 3 % (0-10); Hematocrit 26.5 % (36.0-46.0); Immature Granulocytes Auto 0.01 Thou/mm3 (0.00-0.00); Lymphocytes # (Auto) 1.7 Thou/mm3 (1.0-4.8); Lymphocytes % (Auto) 35 % (10-50); Mean Corpuscular HGB Conc 29.8 g/dl (31.0-37.0); Mean Corpuscular Hemoglobin 23.2 pg (25.0-35.0); Mean Corpuscular Volume 78 fL (80-100); Monocytes # (Auto) 0.5 Thou/mm3 (0.0-0.8); Monocytes % (Auto) 9 % (0-12); Neutrophils # (Auto) 2.5 Thou/mm3 (1.8-7.7); Neutrophils % (Auto) 51 % (37-80); Nucleated Red Blood Cell # 0.00 Thou/mm3 (0.00-0.00); Nucleated Red Blood Cell % 0 /100 WBC (0); Platelet Count 261 Thou/mm3 (140-440); RDW Standard Deviation 51.2 fL (36.4-46.3); Red Blood Count 3.41 Miln/mm3 (4.00-5.20); White Blood Count 5.0 Thou/mm3 (3.6-11.0)
[2025-05-30 09:17] LABS: Hemoglobin 7.9 g/dL (12.0-16.0)
== END | disposition home or self-care (01) ==
LOC: SCTO 07:37
PROVIDERS: PCP Family Medicine; Referring Provider Nurse Practitioner Family; Visit Provider Nurse Practitioner Family
DX: C50.412 Malignant neoplasm of upper-outer quadrant of left female breast (principal)
CPT/HCPCS: 36415; 85025

== ENCOUNTER → 2025-06-19 | Outpatient (CLI) | payer OTHER, SELFPAY ==
[2025-06-19 14:10] LABS: Anion Gap 9 (7-16); BUN/Creatinine Ratio 16 Ratio (12-20); Blood Urea Nitrogen 18 mg/dL (9-23); Calcium 8.7 mg/dL (8.3-10.6); Carbon Dioxide 25.1 mMol/L (20.0-31.0); Chloride 108 mMol/L (98-107); Creatinine (Component) 1.1 mg/dL (0.6-1.3); Glucose 146 mg/dL (74-106); Osmolality,Calculated 288 (275-295); Potassium 4.6 mMol/L (3.4-5.1); Sodium 142 mMol/L (136-145); eGFR 54 See Note
[2025-06-19 14:12] LABS: Basophils # (Auto) 0.1 Thou/mm3 (0.0-0.2); Basophils % (Auto) 2 % (0-2.5); Eosinophils # (Auto) 0.2 Thou/mm3 (0.0-0.5); Eosinophils % (Auto) 4 % (0-10); Hematocrit 21.7 % (36.0-46.0); Immature Granulocytes Auto 0.02 Thou/mm3 (0.00-0.00); Lymphocytes # (Auto) 1.5 Thou/mm3 (1.0-4.8); Lymphocytes % (Auto) 32 % (10-50); Mean Corpuscular HGB Conc 29.0 g/dl (31.0-37.0); Mean Corpuscular Hemoglobin 21.4 pg (25.0-35.0); Mean Corpuscular Volume 74 fL (80-100); Monocytes # (Auto) 0.4 Thou/mm3 (0.0-0.8); Monocytes % (Auto) 8 % (0-12); Neutrophils # (Auto) 2.5 Thou/mm3 (1.8-7.7); Neutrophils % (Auto) 54 % (37-80); Nucleated Red Blood Cell # 0.00 Thou/mm3 (0.00-0.00); Nucleated Red Blood Cell % 0 /100 WBC (0); Platelet Count 224 Thou/mm3 (140-440); RDW Standard Deviation 47.0 fL (36.4-46.3); Red Blood Count 2.94 Miln/mm3 (4.00-5.20); White Blood Count 4.7 Thou/mm3 (3.6-11.0)
[2025-06-19 14:18] LABS: Hemoglobin 6.3 g/dL (12.0-16.0)
[2025-06-19 14:27] LABS: CA 15-3 15.1 U/mL (<32.4); Carcinoembryonic Antigen 1.4 ng/mL (0.0-5.0)
[2025-06-19 18:00] LABS: Path Review Blood Smear Sent to Pathologist
== END | disposition home or self-care (01) ==
LOC: SCTO 11:34
PROVIDERS: PCP Nurse Practitioner Family; Referring Provider Nurse Practitioner Family; Visit Provider Nurse Practitioner Family
DX: C50.412 Malignant neoplasm of upper-outer quadrant of left female breast (principal)
CPT/HCPCS: 36415; 80048; 82378; 85025; 86300

== ENCOUNTER 2025-06-20 12:28 | Emergency (ER) | payer OTHER, SELFPAY ==
[2025-06-20 12:29] VITALS: BMI 47.8
[2025-06-20 12:44] VITALS: BP 153/68; PULSE 74; RESP 16; TEMP 36.9; O2SAT 97
--- NOTE | 2025-06-20 12:47 | PD.EDRME ---
Rapid Medical Screening Exam RME Arrival date/time: 06/20/25 12:28 69-year-old female with a history of hyperlipidemia, and anemia presents to the emergency room with a chief complaint of weakness and a low hemoglobin level. I have greeted and performed a focused initial assessment of this patient. A comprehensive ED assessment and evaluation of the patient, analysis of all test results, and completion of the medical decision making process will be conducted by additional ED providers. Chief Complaint: Weakness Vital signs: Vital Signs Temperature 98.4 F 06/20/25 12:44 Pulse Rate 74 06/20/25 12:44 Respiratory Rate 16 06/20/25 12:44 Blood Pressure 153/68 H 06/20/25 12:44 Pulse Oximetry (%) 97 06/20/25 12:44 Oxygen Delivery Method Room Air 06/20/25 12:44 Vital signs reviewed by provider: Yes
[2025-06-20 13:43] LABS: Basophils # (Auto) 0.1 Thou/mm3 (0.0-0.2); Basophils % (Auto) 2 % (0-2.5); Eosinophils # (Auto) 0.1 Thou/mm3 (0.0-0.5); Eosinophils % (Auto) 3 % (0-10); Hematocrit 22.4 % (36.0-46.0); Immature Granulocytes Auto 0.01 Thou/mm3 (0.00-0.00); Lymphocytes # (Auto) 1.2 Thou/mm3 (1.0-4.8); Lymphocytes % (Auto) 28 % (10-50); Mean Corpuscular HGB Conc 29.0 g/dl (31.0-37.0); Mean Corpuscular Hemoglobin 21.0 pg (25.0-35.0); Mean Corpuscular Volume 73 fL (80-100); Monocytes # (Auto) 0.4 Thou/mm3 (0.0-0.8); Monocytes % (Auto) 9 % (0-12); Neutrophils # (Auto) 2.6 Thou/mm3 (1.8-7.7); Neutrophils % (Auto) 58 % (37-80); Nucleated Red Blood Cell # 0.00 Thou/mm3 (0.00-0.00); Nucleated Red Blood Cell % 0 /100 WBC (0); Platelet Count 221 Thou/mm3 (140-440); RDW Standard Deviation 46.5 fL (36.4-46.3); Red Blood Count 3.09 Miln/mm3 (4.00-5.20); White Blood Count 4.4 Thou/mm3 (3.6-11.0)
[2025-06-20 13:49] LABS: Hemoglobin 6.5 g/dL (12.0-16.0)
[2025-06-20 13:56] LABS: INR 1.0 (0.9-1.3); Partial Thromboplastin Time 24.6 Seconds (22.0-36.0); Prothrombin Time 10.7 Seconds (9.0-12.2)
[2025-06-20 13:59] LABS: Alanine Aminotransferase 13 U/L (10-49); Albumin, Serum 4.0 gm/dL (3.4-4.8); Albumin/Globulin Ratio 1.5 (1.2-2.2); Alkaline Phosphatase 116 U/L (46-116); Anion Gap 9 (7-16); Aspartate Amino Transferase 24 U/L (0-34); BUN/Creatinine Ratio 15 Ratio (12-20); Bilirubin,Total 0.8 mg/dL (0.3-1.2); Blood Urea Nitrogen 19 mg/dL (9-23); Calcium 8.9 mg/dL (8.3-10.6); Calcium (Corrected) 8.9 mg/dL (8.5-10.1); Carbon Dioxide 26.5 mMol/L (20.0-31.0); Chloride 108 mMol/L (98-107); Creatinine (Component) 1.3 mg/dL (0.6-1.3); Estimated Creatinine Clearance 43.8 mL/min (>60); Globulin 2.6 gm/dL (2.3-3.5); Glucose 111 mg/dL (74-106); Osmolality,Calculated 288 (275-295); Potassium 4.1 mMol/L (3.4-5.1); Sodium 143 mMol/L (136-145); Total Protein 6.6 gm/dL (5.7-8.2); eGFR 44 See Note
--- NOTE | 2025-06-20 16:58 | PD.EDWEAK ---
ED Weakness RME/HPI General Chief complaint: Weakness Stated complaint: NEED POSSIBLE BLOOD TRANSFUSION Arrival date/time: 06/20/25 12:28 RME / HPI RME / HPI Narrative: 06/20/25 12:28 69-year-old female with a history of hyperlipidemia, and anemia presents to the emergency room with a chief complaint of weakness and a low hemoglobin level. I have greeted and performed a focused initial assessment of this patient. A comprehensive ED assessment and evaluation of the patient, analysis of all test results, and completion of the medical decision making process will be conducted by additional ED providers. Related Data Home Medications ?Medication ?Instructions ?Recorded ?Confirmed diltiazem HCl 240 mg 240 mg PO DAILY 05/14/22 02/08/25 capsule,extended release 24 hr letrozole 2.5 mg tablet (Femara) 2.5 tab PO QDAY 05/14/22 02/08/25 losartan 25 mg tablet 25 mg PO QDAY 05/06/24 02/08/25 Allergies Allergy/AdvReac Type Severity Reaction Status Date / Time No Known Allergies Allergy Verified 04/10/25 13:00 Course Orders Category Date Time Status Transfuse,blood/blood products NOW Care 06/20/25 14:03 Active Antibody Identification Stat Lab 06/20/25 13:19 Results CBC Stat Lab 06/20/25 13:19 Completed CMP [Comprehensive Metabolic Panel] Stat Lab 06/20/25 13:19 Completed PT [Prothrombin Time with INR] Stat Lab 06/20/25 13:19 Completed PTT [Partial Thromboplastin Time] Stat Lab 06/20/25 13:19 Completed Red Blood Cells Stat Lab 06/20/25 13:19 Results Type and Screen Stat Lab 06/20/25 13:19 Results Vital Signs Vital signs: Vital Signs Temperature 98.4 F 06/20/25 12:44 Pulse Rate 74 06/20/25 12:44 Respiratory Rate 16 06/20/25 12:44 Blood Pressure 153/68 H 06/20/25 12:44 Pulse Oximetry (%) 97 06/20/25 12:44 Oxygen Delivery Method Room Air 06/20/25 12:44 Discharge Plan Prescriptions/Referrals Prescriptions/Med Rec: No Action diltiazem HCl 240 mg capsule,extended release 24hr 240 mg PO DAILY letrozole [Femara] 2.5 mg tablet 2.5 tab PO QDAY losartan 25 mg tablet 25 mg PO QDAY Referrals: Mirian Park POULTRY PROCESS WORKER [Primary Care Provider] - In 1 week Patient/Caregiver Discharge Instructions Print Language: North Korean
--- NOTE | 2025-06-20 17:52 | PC.NURSE ---
Isra from blood bank called states patient has 2 antibodies that are a send out coming from [place] tomorrow if they are able to identify the anti bodies, Dr. Neff made aware and will have patient return tomorrow for transfusion.
[2025-06-20 17:57] VITALS: BP 171/76; PULSE 78; RESP 17; TEMP 36.8; O2SAT 98
--- NOTE | 2025-06-20 18:05 | PD.EDWEAK ---
ED Weakness RME/HPI General Chief complaint: Weakness Stated complaint: NEED POSSIBLE BLOOD TRANSFUSION Arrival date/time: 06/20/25 12:28 RME / HPI RME / HPI Narrative: 06/20/25 12:28 69-year-old female with a history of hyperlipidemia, and anemia presents to the emergency room with a chief complaint of weakness and a low hemoglobin level. I have greeted and performed a focused initial assessment of this patient. A comprehensive ED assessment and evaluation of the patient, analysis of all test results, and completion of the medical decision making process will be conducted by additional ED providers. DR. NEFF MAIN ED EVALUATION 69 year old female with a history of left breast cancer s/p partial mastectomy and iron deficiency anemia presents to the ED for evaluation of global weakness and low hemoglobin levels today. Patient stated she has a known history of anemia and is being worked up by oncologist Dr. Robison and GI Dr. Castillo. States she has received approximately 10+ blood transfusions in the past, with the last transfusion occurring 05/13/2025. Denies syncope, palpitations, fever, chills, cough, melena, hematochezia, or any other complaints at this time. Related Data Home Medications ?Medication ?Instructions ?Recorded ?Confirmed diltiazem HCl 240 mg 240 mg PO DAILY 05/14/22 02/08/25 capsule,extended release 24 hr letrozole 2.5 mg tablet (Femara) 2.5 tab PO QDAY 05/14/22 02/08/25 losartan 25 mg tablet 25 mg PO QDAY 05/06/24 02/08/25 Allergies Allergy/AdvReac Type Severity Reaction Status Date / Time No Known Allergies Allergy Verified 04/10/25 13:00 Review of Systems Review of Systems Systems Reviewed: All systems reviewed, normal except as documented Past Medical History Past Medical History CARDIAC: Positive Cardiac Disorders, Hypercholesterolemia and Hypertension RESPIRATORY: Positive Sleep Apnea GASTROINTESTINAL: Positive Gastrointestinal Disorders, Gastrointestinal Bleed and Obesity REPRODUCTIVE: Positive Breast Cancer (L breast) and Previous Pregnancies HEMATOLOGIC: Positive Blood Disorders and Anemia OTHER HISTORY: Positive Blood Transfusions, Chemotherapy, Radiation Therapy, Cancer and Breast Cancer (L breast) Family History FAMILY HISTORY: Positive Family Respiratory Disorders, Family Cardiac Disorders, Family Cancer and Family Surgery; Negative Family Psychiatric Problems, Family Gastrointestinal Problems or Family Anesthesia Reaction Surgical History SURGICAL: Positive Lumpectomy (L breast); Negative Cardiac Surgery, Endocrine Surgery, Thyroidectomy, Ear Surgery or Abdominal Surgery Social History SMOKING STATUS: Never smoker SUBSTANCE USE: does not use ED Exam Narrative Physical exam: GENERAL APPEARANCE:? alert and oriented x 4, well-developed, well-nourished, pale, obese HEENT: normocephalic, atraumatic NECK: supple LUNGS: no respiratory distress, normal effort HEART: good peripheral perfusion ABDOMEN: non distended EXTREMITIES:? atraumatic NEUROLOGIC: awake; alert and oriented x4; cranial nerves II-XII grossly intact PSYCHIATRIC:? appropriate mood and affect SKIN: warm, dry, pale; no rashes Course Course Course Narrative: Notified by charge nurse that the patient is unable to receive blood transfusion today due to the type of blood the patient requires. I discussed plan with patient to return tomorrow for transfusion and she is in agreement with plan. Patient discharged home with instructions to return tomorrow morning. Quality Measures none Orders Category Date Time Status Transfuse,blood/blood products NOW Care 06/20/25 14:03 Active Antibody Identification Stat Lab 06/20/25 13:19 Results CBC Stat Lab 06/20/25 13:19 Completed CMP [Comprehensive Metabolic Panel] Stat Lab 06/20/25 13:19 Completed PT [Prothrombin Time with INR] Stat Lab 06/20/25 13:19 Completed PTT [Partial Thromboplastin Time] Stat Lab 06/20/25 13:19 Completed Red Blood Cells Stat Lab 06/20/25 13:19 Results Type and Screen Stat Lab 06/20/25 13:19 Results Vital Signs Vital signs: Vital Signs Temperature 98.4 F 06/20/25 12:44 Pulse Rate 74 06/20/25 12:44 Respiratory Rate 16 06/20/25 12:44 Blood Pressure 153/68 H 06/20/25 12:44 Pulse Oximetry (%) 97 06/20/25 12:44 Oxygen Delivery Method Room Air 06/20/25 12:44 Pulse ox is 97% on room air which is adequate. Weakness MDM Narrative MDM Narrative:: Jacqui Messer am scribing for and in the presence of Dr. Neff. Patient data External records reviewed:: [facility] previous records Clinical information provided by:: patient Social determinants that could affect healthcare access:: none Patient has the following chronic illnesses:: left breast cancer s/p partial mastectomy and iron deficiency anemia How is presenting disease/condition affected by chronic disease/condition?: exacerbated by Evaluation data The following diagnostics were reviewed and interpreted by me:: lab results Lab and/or radiology exams considered but not ordered:: None Interpretation Summary: H/H 6., patient is chronically low Medications / Prescriptions Medications or Prescriptions considered but not ordered:: None Medication administrations:: None Consultations Consultation(s) initiated? (list below): No Diagnosis Weakness Differential Diagnosis: anemia, sepsis and dehydration Most likely diagnosis given after review of the tests above:: Anemia Admission Indicated Admission indicated?: not indicated Admission Request Was there a request for admission?: No Disposition Plan Disposition Plan: Discharge Discharge Attestation Discharge Attestation: The patient and all family members were given an opportunity to ask questions and understood the discharge instructions. Discharge instructions specifically effects, indications for sooner follow up or return to the emergency department, and the expected course of current diagnosis. Patient condition: Stable Discharge Plan Plan Patient Disposition: HOME (Self Care) Prescriptions/Referrals Prescriptions/Med Rec: No Action diltiazem HCl 240 mg capsule,extended release 24hr 240 mg PO DAILY letrozole [Femara] 2.5 mg tablet 2.5 tab PO QDAY losartan 25 mg tablet 25 mg PO QDAY Referrals: Mirian Park NP [Primary Care Provider] - In 1 week Problem List Clinical Impression: Anemia requiring transfusions Patient/Caregiver Discharge Instructions Education Materials: ED Anemia Type Not Specified Additional Instructions: The blood type that you require for transfusion will not be available until tomorrow morning. Return to the ED tomorrow, 06/21/25 for your blood transfusion. Print Language: Persian Stand Alone Forms: [facility] Info., Patient Portal Info Letter
[2025-06-20 18:13] VITALS: BP 122/78; PULSE 78
== END 2025-06-20 18:14 | disposition home or self-care (01) ==
PROVIDERS: Nurse Practitioner Family; Emergency Provider Emergency Medicine; PCP Nurse Practitioner Family
DX: D64.9 Anemia, unspecified (principal); E78.5 Hyperlipidemia, unspecified
CPT/HCPCS: 36415; 80053; 85025; 85610; 85730; 86850; 86870; 86880; 86900; 86901; 86921; 86922; 99281

== ENCOUNTER 2025-06-21 07:30 | Emergency (ER) | payer OTHER, SELFPAY ==
[2025-06-21] VITALS (23 sets, daily range): BP systolic 136–178; BP diastolic 65–100; PULSE 66–89; RESP 13–27; TEMP 36.5–37.1; O2SAT 95–100; BMI 47.8
--- NOTE | 2025-06-21 07:40 | PD.EDRME ---
Rapid Medical Screening Exam RME Arrival date/time: 06/21/25 07:30 69-year-old female presents to the Emergency Department today patient was seen yesterday was instructed return today for blood transfusion Chief Complaint: Recheck/Abnormal Lab/Rx
--- NOTE | 2025-06-21 10:00 | PC.NURSE ---
Pt came in to ed today for blood transfusion which she was seen yesterday but told by md to come back today. Pt has history of left breast cancer s/p partial mastectomy and iron deficiency anemia which she gets blood transfusions. Patient reports she was notified by her doctor that her hemoglobin was low yesterday and evaluated here. Pt also is having gen weakness and feeling tired since yesterday. Denies any new symptoms.
--- NOTE | 2025-06-21 10:28 | PD.EDADULT ---
ED General RME/HPI General Chief complaint: Recheck/Abnormal Lab/Rx Stated complaint: returned for her blood transfusion Arrival date/time: 06/21/25 07:30 RME / HPI RME / HPI narrative: 06/21/25 07:30 69-year-old female presents to the Emergency Department today patient was seen yesterday was instructed return today for blood transfusion DR. MORA MAIN ED EVALUATION 69 year old female with history of left breast cancer s/p partial mastectomy and iron deficiency anemia requiring blood transfusions (last transfused 05/13/2025) presents to the ED for blood transfusion today. Patient reports she was notified by her doctor that her hemoglobin was low yesterday and evaluated here. However, states she was instructed to return today for blood transfusion. Patient reports associated global weakness that has remained unchanged since yesterday. Denies any new symptoms. Related Data Home Medications ?Medication ?Instructions ?Recorded ?Confirmed diltiazem HCl 240 mg 240 mg PO DAILY 05/14/22 02/08/25 capsule,extended release 24 hr letrozole 2.5 mg tablet (Femara) 2.5 tab PO QDAY 05/14/22 02/08/25 losartan 25 mg tablet 25 mg PO QDAY 05/06/24 02/08/25 Allergies Allergy/AdvReac Type Severity Reaction Status Date / Time No Known Allergies Allergy Verified 06/21/25 07:35 Review of Systems Review of Systems Systems Reviewed: All systems reviewed, normal except as documented Past Medical History Past Medical History CARDIAC: Positive Cardiac Disorders, Hypercholesterolemia and Hypertension RESPIRATORY: Positive Sleep Apnea GASTROINTESTINAL: Positive Gastrointestinal Disorders, Gastrointestinal Bleed and Obesity REPRODUCTIVE: Positive Breast Cancer (L breast) and Previous Pregnancies HEMATOLOGIC: Positive Blood Disorders and Anemia OTHER HISTORY: Positive Blood Transfusions, Chemotherapy, Radiation Therapy, Cancer and Breast Cancer (L breast) Family History FAMILY HISTORY: Positive Family Respiratory Disorders, Family Cardiac Disorders, Family Cancer and Family Surgery Surgical History SURGICAL: Positive Lumpectomy (L breast) Social History SMOKING STATUS: Never smoker SUBSTANCE USE: does not use ED Exam Narrative Physical exam: GENERAL APPEARANCE:? alert and oriented x 4, well-developed, well-nourished, pallor, obese HEENT: normocephalic, atraumatic NECK: supple LUNGS: no respiratory distress, normal effort HEART: good peripheral perfusion ABDOMEN: non distended EXTREMITIES:? atraumatic NEUROLOGIC: awake; alert and oriented x4; cranial nerves II-XII grossly intact PSYCHIATRIC:? appropriate mood and affect SKIN: warm, dry, pallor; no rashes Course Course Course Narrative: Patient remains clinically stable throughout the emergency department visit. We reviewed all the results, analysis, and treatment plans. Patient is amenable to discharge. Strict return precautions were outlined. Quality Measures none Orders Category Date Time Status Insert IV NOW Care 06/21/25 07:38 Completed Antibody Identification Stat Lab 06/21/25 08:04 Completed Type and Screen Stat Lab 06/21/25 08:04 Completed prbc [Red Blood Cells] Stat Lab 06/21/25 08:04 Completed Vital Signs Vital signs: Vital Signs Temperature 98.5 F 06/21/25 07:59 Pulse Rate 89 06/21/25 07:59 Respiratory Rate 18 06/21/25 07:59 Blood Pressure 136/72 H 06/21/25 07:59 Pulse Oximetry (%) 95 06/21/25 07:59 Oxygen Delivery Method Room Air 06/21/25 07:59 Pulse ox is 95% on room air which is adequate. Discharge Plan Plan Patient Disposition: HOME (Self Care) Prescriptions/Referrals Prescriptions/Med Rec: No Action diltiazem HCl 240 mg capsule,extended release 24hr 240 mg PO DAILY letrozole [Femara] 2.5 mg tablet 2.5 tab PO QDAY losartan 25 mg tablet 25 mg PO QDAY Referrals: Mirian Park PATIENT CARE REPRESENTATIVE [Primary Care Provider] - In 1 week Problem List Clinical Impression: Anemia requiring transfusions, Symptomatic anemia, Transfusion of blood during current hospitalization Patient/Caregiver Discharge Instructions Education Materials: ED Anemia Type Not Specified Print Language: Czech Stand Alone Forms: [employer] Info., Patient Portal Info Letter MDM Narrative MDM hospital course (for use when minimal MDM required): Jacqui Messer am scribing for and in the presence of Dr. Mora. Clinical Information Provided by: patient Medical Records reviewed [facility] Meds/Rx considered, not ordered None Labs/Rad/Tests considered, not ordered None Chronic Illness/Social Conditions which may negatively complicate care or outcome(s)-explain: None or not applicable EKG EKG not done Labs Labs: interpreted by nd Lab(s) Interpretation(s): Patients H/H yesterday was 6.5/22.4. No indication to repeat labs as they were drawn just 18 hours ago. Imaging Imaging interpretation: none Medication Administration(s) none
== END 2025-06-21 15:20 | disposition home or self-care (01) ==
PROVIDERS: Emergency Provider Emergency Medicine; PCP Nurse Practitioner Family
DX: D64.9 Anemia, unspecified (principal)
CPT/HCPCS: 36415; 36430; 86850; 86870; 86900; 86901; 86902; 86921; 86922; 99283; P9016

== ENCOUNTER 2025-06-28 15:33 | Outpatient (RCR) | payer OTHER, SELFPAY ==
[2025-06-28 17:42] LABS: Basophils # (Auto) 0.1 Thou/mm3 (0.0-0.2); Basophils % (Auto) 2 % (0-2.5); Eosinophils # (Auto) 0.2 Thou/mm3 (0.0-0.5); Eosinophils % (Auto) 3 % (0-10); Hematocrit 29.3 % (36.0-46.0); Hemoglobin 8.9 g/dL (12.0-16.0); Immature Granulocytes Auto 0.01 Thou/mm3 (0.00-0.00); Lymphocytes # (Auto) 1.8 Thou/mm3 (1.0-4.8); Lymphocytes % (Auto) 32 % (10-50); Mean Corpuscular HGB Conc 30.4 g/dl (31.0-37.0); Mean Corpuscular Hemoglobin 23.2 pg (25.0-35.0); Mean Corpuscular Volume 77 fL (80-100); Monocytes # (Auto) 0.5 Thou/mm3 (0.0-0.8); Monocytes % (Auto) 9 % (0-12); Neutrophils # (Auto) 3.1 Thou/mm3 (1.8-7.7); Neutrophils % (Auto) 54 % (37-80); Nucleated Red Blood Cell # 0.00 Thou/mm3 (0.00-0.00); Nucleated Red Blood Cell % 0 /100 WBC (0); Platelet Count 218 Thou/mm3 (140-440); RDW Standard Deviation 53.4 fL (36.4-46.3); Red Blood Count 3.83 Miln/mm3 (4.00-5.20); White Blood Count 5.7 Thou/mm3 (3.6-11.0)
[2025-06-28 17:52] LABS: Alanine Aminotransferase 12 U/L (10-49); Albumin, Serum 4.2 gm/dL (3.4-4.8); Albumin/Globulin Ratio 1.8 (1.2-2.2); Alkaline Phosphatase 110 U/L (46-116); Anion Gap 9 (7-16); Aspartate Amino Transferase 25 U/L (0-34); BUN/Creatinine Ratio 15 Ratio (12-20); Bilirubin,Total 0.8 mg/dL (0.3-1.2); Blood Urea Nitrogen 17 mg/dL (9-23); Calcium 9.0 mg/dL (8.3-10.6); Calcium (Corrected) 9.0 mg/dL (8.5-10.1); Carbon Dioxide 24.6 mMol/L (20.0-31.0); Chloride 108 mMol/L (98-107); Creatinine (Component) 1.1 mg/dL (0.6-1.3); Ferritin 5 ng/mL (7.3-270.7); Globulin 2.3 gm/dL (2.3-3.5); Glucose 127 mg/dL (74-106); Iron 22 mcg/dL (50-170); Osmolality,Calculated 286 (275-295); Percent Iron Saturation 5 % (20-55); Potassium 4.6 mMol/L (3.4-5.1); Sodium 142 mMol/L (136-145); Total Iron Binding Capacity 389 mcg/dL (250-425); Total Protein 6.5 gm/dL (5.7-8.2); Unsaturated Iron Binding 367 (225-295); eGFR 54 See Note
[2025-06-28 17:53] LABS: Folate 11.42 ng/mL (>5.38); Vitamin B12 630 pg/mL (211-911)
--- NOTE | 2025-07-11 23:02 | CTCFLWUP_ITS ---
Patient: PATRICIA LIRIANO : 1955 Page 2 of 3 FOLLOW UP NOTE DATE OF SERVICE: 06/28/2025 NAME: PATRICIA LIRIANO ACCOUNT: [id number] : 1955 AGE: 69 INTERVAL HISTORY: Patient is in for follow-up visit. Patricia Briscoe, a female with severe anemia, GI bleed, and osteoporosis, presented with concerns about blood levels and bone health. She recently received two units of packed red blood cells for hemoglobin of 6.8. Current hemoglobin is 7.7 g/dL with iron saturation 3%. Plan includes administering one unit of PRBCs, Ferrlecit IV iron infusion, biweekly CBC monitoring, and GI referral. Patient declined osteoporosis medications (Prolia, Reclast) due to previous side effects but continues [facility] sessions ONCOLOGY HISTORY:?[facility]one[facility] Oncology Hx? DIAGNOSIS: Malignant neoplasm of upper-outer quadrant of left female breast [ICD10] C50.412?CloneBlock Dx? 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 s/p left breast partial mastectomy as well as sentinel lymph node biopsy (12/09/2017) On adjuvant letrozole (08/17/2018-). Osteopenia (04/22/2023) Erosive gastritis, GI, Dr. Castillo Iron deficiency anemia Malignant neoplasm of upper-outer quadrant of left female breast [ICD10] C50.412 DATE OF DIAGNOSIS: 10/22/2017 no there was no STAGE/TNM: TREATMENT HISTORY: Care?Plan Start?Date Cycle Day Intent DOCEtaxel?75,?Cyclophosphamide?600?-?Herceptin 03/01/2018 1 21 Curative?(adjuvant) DOCEtaxel?75,?Cyclophosphamide?600?-?Adj 03/01/2018 1 21 Curative?(adjuvant) PROLia?60mg?every?6?months 06/30/2023 1 180 Curative?(primary) FERAheme?4?doses 03/11/2025 1 28 Palliative VENOfer?200mg?IV?wkly?for?10?weeks 03/12/2025 1 70 Palliative FERAheme?4?doses 06/30/2023 1 28 Palliative VENOfer?200mg?IV?wkly?for?10?weeks 04/26/2024 1 70 Palliative FERRlecit?she 08/09/2024 1 7 Palliative HISTORY OF PRESENT ILLNESS: PREVIOUS NOTES: Patricia Liriano is a 69-year-old Chinese-speaking female with following history. 10/22/2017: Patient had left breast stereotactic core biopsy of a architectural distorted lesion at 1 o'clock position. Pathology showed ER TX positive HER-2/alma negative invasive lobular carcinoma. 12/09/2017: Patient had left breast partial mastectomy as well as sentinel lymph node biopsy. Surgical pathology specimen showed a 4.2 x 3.7 x 1.5 cm, single focus, high-grade invasive lobular carcinoma. Lymphovascular invasion was positive. 2 out of 3 sentinel lymph nodes were positive for metastatic disease with largest metastatic focus was 14 mm in size. It was staged as pT2,sn N1a, cM0 disease. 02/05/2018: CT scan of the abdomen and pelvis with IV contrast was obtained. CT showed a 7 mm noncalcified pulmonary nodule in the left lower lobe. Scans were negative for metastatic disease in the abdomen and pelvis. 03/01/2018?04/22/2018: Patient received 3 cycles of TC chemotherapy in the adjuvant setting. Unfortunately the third cycle of chemotherapy was complicated by diffuse skin rash. Further chemotherapy was discontinued. 06/07/2018?08/13/2018: Patient received 6120 cGy of radiation therapy to the left breast. 08/17/2018: Anastrozole 1 mg p.o. daily started. 09/15/2018: She is tolerating anastrozole very well. Denies any cough chest pain shortness of breath abdominal pain or leg cramps. Previous CT scans done on 02/05/2018 has shown a 7 mm noncalcified pulmonary nodule in the left lower lobe. Radiologist recommended repeating scans in 6 months at that time. 10/15/2018: Repeat CT scan of the chest abdomen pelvis with IV contrast showed stable 7 mm pleural-based pulmonary nodule in the left lower lobe. No evidence of any metastatic disease 11/15/2018: Anastrozole discontinued due to numbness in both forearms. Patient was started on letrozole 2.5 mg p.o. daily. 12/03/2018: Bone density test showed normal mineralization. 04/25/2021: Bone density test? 11/25/2022: Bilateral diagnostic mammogram Impression: BI-RADS Category 2: Benign findings Recommend yearly follow-up mammography. 12/16/2022: Hemoglobin 12.2, MCV 89, WBC 5.9, ANC 3.2, platelets 211,000, iron saturation 3%, ferritin 5. 06/19/2023: Hemoglobin 8.2, MCV 76, WBC 6.3, ANC 3.5, platelets 265,000, iron saturation 4%, ferritin 4 09/18/2023: Hemoglobin 11.5, MCV 88, WBC 4.6, ANC 2.5, platelets 205,000 11/26/2023: Bilateral mammogram screening 01/07/2024: Bilateral breast ultrasound 01/07/2024: Right diagnostic mammogram 02/19/2024: Hemoglobin 8.0, MCV 78, WBC 5.1, ANC 2.5, platelets 259,000, CEA 0.9, CA 15-3 is 7.1 03/04/2024: Iron saturation 5%, ferritin 4 03/17/2024: CT chest abdomen pelvis with contrast 06/20/2024: Hemoglobin 8.8, MCV 77, WBC 5.5, ANC 3.0, platelets 256,000, iron saturation 7%, ferritin 1 OTHER MEDICAL HISTORY/CONDITIONS: FAMILY HISTORY: ?Clone Family Hx? 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 dilTIAZem HCl - 240 mg 1 Capsule Daily 2. letrozole - 2.5 mg 1 tab Daily 3. losartan - 25 mg 1 tab Daily 4. Natural Senna Laxative - 8.6 mg 2 tab Daily?Palabra Meds? Medications Last Reconciled by Noy Caceres MD on 06/28/2025 ALLERGIES: DOCETAXEL; DOCETAXEL REVIEW OF SYSTEMS: A complete 14-point review of systems was performed and is negative except as noted in interval history. PHYSICAL EXAMINATION: VITAL SIGNS: Temperature?98.1, B/P?151/73, Oxygen?Saturation?96% Weight?236?lbs PAIN: 0 - No pain ECOG Performance Status: 0 - Asymptomatic and fully active GENERAL APPEARANCE: Appears well, in no apparent distress, appropriately interactive. HEENT: Normocephalic, no temporal wasting, normal conjunctiva, no scleral icterus, normal hearing, lips without lesions, neck normal range of motion. CARDIOVASCULAR: Not assessed. PULMONARY: Normal respiratory effort, no respiratory distress or use of accessory muscles, speaking in full sentences, no tachypnea. EXTREMITIES: No pedal edema or cyanosis. SKIN: Normal skin appearance. NEUROLOGIC: Alert and oriented x4. PSHYCHIATRIC: Appropriate affect, mood normal, behavior normal, intact thought and speech. LABORATORY DATA: I have personally reviewed and interpreted each of the patient?s relevant lab tests, abnormal findings are below: Date 06/20/25 06/28/25 ??WHITE?BLOOD?COUNT?(Thou/mm3) 4.4 5.7 ??RED?BLOOD?COUNT?(Miln/mm3) 3.09?L 3.83?L ??HEMOGLOBIN?(gm/dl) 6.5?LL 8.9?L ??HEMATOCRIT?(%) 22.4?L 29.3?L ??PLATELET?COUNT?(Thou/mm3) 221 218 ??NEUTROPHILS?%,?AUTO?(%) 58 54 ??LYMPH?%,?AUTO?(%) 28 32 ??NEUTROPHILS,?AUTO?(Thou/mm3) 2.6 3.1 ??GLUCOSE,RANDOM?(mg/dL) ? 127?H ??BLOOD?UREA?NITROGEN?(mg/dL) ? 17 ??CREATININE?(mg/dL) ? 1.10 ??SODIUM?(mmol/L) ? 142 ??POTASSIUM?(mmol/L) ? 4.6 ??CHLORIDE?(mmol/L) ? 108?H ??CrCl?(CandG)?(ml/min) ? 54.26 ??AST/SGOT?(Unit/L) ? 25 ??ALT/SGPT?(Unit/L) ? 12 ??ALKALINE?PHOSPHATASE?(Unit/L) ? 110 ??BILIRUBIN,?TOTAL?(mg/dL) ? 0.8 ??PROTEIN?TOTAL?(gm/dl) ? 6.5 ??ALBUMIN,?SERUM?(gm/dl) ? 4.2 ??GLOBULIN?(gm/dl) ? 2.3 ??ALBUMIN/GLOBULIN?RATIO ? 1.8 ??CALCIUM,?SERUM?(mg/dL) ? 9.0 ??CALCIUM?SERUM?(CORRECTED)?(mg/dL) ? 9.0 ??TOTAL?IRON?BINDING?CAP?(S*)?(mcg/dL) ? 389 ??UNBOUND?IBC?(mcg/dL) ? 367?H ASSESSMENT/PLAN:?Martha Robison Assessment/Plan? 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 s/p left breast partial mastectomy as well as sentinel lymph node biopsy (12/09/2017) Continue adjuvant letrozole (08/17/2018-). Reports mild body aches, tolerable. Bilateral mammogram screening was done on 11/26/2023 Left breast ultrasound showed benign findings, 04/22/2024. Recent CT scan shows stable pulmonary nodules with no signs of cancer or pneumonia, 01/05/2025 Continue letrozole, (08/17/2018-) In July she will complete 7 years, we will discontinue 07/2025. Right breast ultrasound and right breast diagnostic mammogram showed benign findings, 09/14/2024. No clinical evidence of recurrence. Plan: CEA CA 15-3 prior to next follow-up appointment Severe anemia Assessment: Patient has a history of severe anemia requiring frequent blood and iron transfusions. Will repeat labs and follow-up Anemia workup again ordered Bone marrow biopsy ordered tertiary level hematology to evaluate for anemia Osteoporosis Assessment: Patient has been diagnosed with osteoporosis based on recent bone density scan. Previous treatments with oral medication and Prolia every 6 months were attempted but discontinued due to side effects, including severe joint pain. Patient attending [employer] gym. Plan: - Offered Reclast, zometa, prolia, fosamax, patient declined, understands risks - Patient self discontinued calcium and vitamin D supplements due to heartburn GI bleed Assessment: Patient has a history of GI bleed, which may be contributing to the severe anemia. Previous colonoscopy revealed hemorrhoids, which were surgically addressed by Dr. Castillo. The exact source of ongoing blood loss is not determined. Patient is reluctant to undergo further invasive procedures or investigations. ER precautions given Plan: - Pending referral to GI for second opinion - Pending CT abdomen and pelvis with or without contrast - Patient informed of risks of declining further workup and understands the decision ORDERS: Order # Description [id number] Basic Metabolic Panel [id number] Comprehensive Metabolic Panel - 12 + CBC with Auto Diff [id number] Iron Panel + Ferritin + Vitamin B-12 + Folic Acid; Serum [id number] Follow Up 3 Week RETURN TO CLINIC: I reviewed the diagnosis, prognosis, and recommended treatment/procedure options with the patient (and/or their legal self pay representative), including the potential benefits, risks, side effects and alternative therapies. We also discussed the option of no treatment and the possibility of clinical trial participation, if applicable. All questions were addressed, and they demonstrated understanding. They provided informed consent to proceed with the proposed plan of care. BILLING AND COMPLIANCE: I reviewed external records from providers outside my specialty as summarized above. I spent a total of 50 minutes on this patient?s care on the day of their visit excluding time spent related to any billed procedures. This time includes time spent with the patient as well as time spent documenting in the medical record, reviewing patients records and tests, obtaining history, placing orders, communicating with other healthcare professionals, counseling the patient, family or caregiver, and/or care coordination for the diagnoses above. Electronically Signed by: Jose Robison MD T: 11:00 PM CC: Radames,? PCP: Mirian Park Referring: Mirian Park This document was completed utilizing speech recognition software. Grammatical errors, random word insertions, pronoun errors, and incomplete sentences are an occasional consequence of this system due to software limitations, ambient noise, and hardware issues. Any formal questions or concerns about the content, text or information contained within the body of this dictation should be directly addressed to the provider for clarification.
== END 2025-06-30 23:59 | disposition home or self-care (01) ==
LOC: SCTC 15:33
PROVIDERS: PCP Nurse Practitioner Family; Referring Provider Nurse Practitioner Family; Visit Provider Internal Medicine Hematology & Oncology
DX: C50.412 Malignant neoplasm of upper-outer quadrant of left female breast (principal); Z17.0 Estrogen receptor positive status [ER+]; Z17.32 Human epidermal growth factor receptor 2 negative status; Z17.21 Progesterone receptor positive status; M81.0 Age-related osteoporosis without current pathological fracture; D64.9 Anemia, unspecified; Z79.811 Long term (current) use of aromatase inhibitors; Z90.12 Acquired absence of left breast and nipple; K64.9 Unspecified hemorrhoids
CPT/HCPCS: 80053; 82607; 82728; 82746; 83540; 83550; 85025; 99212; G0463

== ENCOUNTER → 2025-07-14 | Outpatient (CLI) | payer OTHER, SELFPAY ==
[2025-07-14 08:36] LABS: Basophils # (Auto) 0.1 Thou/mm3 (0.0-0.2); Basophils % (Auto) 2 % (0-2.5); Eosinophils # (Auto) 0.2 Thou/mm3 (0.0-0.5); Eosinophils % (Auto) 3 % (0-10); Hematocrit 24.9 % (36.0-46.0); Immature Granulocytes Auto 0.01 Thou/mm3 (0.00-0.00); Lymphocytes # (Auto) 1.8 Thou/mm3 (1.0-4.8); Lymphocytes % (Auto) 32 % (10-50); Mean Corpuscular HGB Conc 29.7 g/dl (31.0-37.0); Mean Corpuscular Hemoglobin 22.6 pg (25.0-35.0); Mean Corpuscular Volume 76 fL (80-100); Monocytes # (Auto) 0.5 Thou/mm3 (0.0-0.8); Monocytes % (Auto) 9 % (0-12); Neutrophils # (Auto) 3.1 Thou/mm3 (1.8-7.7); Neutrophils % (Auto) 55 % (37-80); Nucleated Red Blood Cell # 0.00 Thou/mm3 (0.00-0.00); Nucleated Red Blood Cell % 0 /100 WBC (0); Platelet Count 268 Thou/mm3 (140-440); RDW Standard Deviation 53.1 fL (36.4-46.3); Red Blood Count 3.27 Miln/mm3 (4.00-5.20); White Blood Count 5.6 Thou/mm3 (3.6-11.0)
[2025-07-14 08:37] LABS: Hemoglobin 7.4 g/dL (12.0-16.0)
[2025-07-14 08:48] LABS: Alanine Aminotransferase 15 U/L (10-49); Albumin, Serum 4.0 gm/dL (3.4-4.8); Albumin/Globulin Ratio 1.9 (1.2-2.2); Alkaline Phosphatase 115 U/L (46-116); Anion Gap 10 (7-16); Aspartate Amino Transferase 25 U/L (0-34); BUN/Creatinine Ratio 16 Ratio (12-20); Bilirubin,Total 0.6 mg/dL (0.3-1.2); Blood Urea Nitrogen 18 mg/dL (9-23); Calcium 8.9 mg/dL (8.3-10.6); Calcium (Corrected) 8.9 mg/dL (8.5-10.1); Carbon Dioxide 25.7 mMol/L (20.0-31.0); Chloride 106 mMol/L (98-107); Creatinine (Component) 1.1 mg/dL (0.6-1.3); Globulin 2.1 gm/dL (2.3-3.5); Glucose 132 mg/dL (74-106); Osmolality,Calculated 287 (275-295); Potassium 4.5 mMol/L (3.4-5.1); Sodium 142 mMol/L (136-145); Total Protein 6.1 gm/dL (5.7-8.2); eGFR 54 See Note
[2025-07-14 08:58] LABS: Ferritin 3 ng/mL (7.3-270.7); Iron 18 mcg/dL (50-170); Percent Iron Saturation 4 % (20-55); Total Iron Binding Capacity 362 mcg/dL (250-425); Unsaturated Iron Binding 344 (225-295)
[2025-07-14 09:00] LABS: Vitamin B12 743 pg/mL (211-911)
[2025-07-14 12:53] LABS: Folate 10.06 ng/mL (>5.38)
== END | disposition home or self-care (01) ==
LOC: SCTO 07:19
PROVIDERS: PCP Nurse Practitioner Family; Referring Provider Internal Medicine Hematology & Oncology; Visit Provider Internal Medicine Hematology & Oncology
DX: C50.412 Malignant neoplasm of upper-outer quadrant of left female breast (principal)
CPT/HCPCS: 36415; 80053; 82607; 82728; 82746; 83540; 83550; 85025

== ENCOUNTER 2025-07-17 09:57 | Outpatient (RCR) | payer OTHER, SELFPAY | END 2025-07-30 23:59 | disposition home or self-care (01) | LOC: SCTC 09:57 | PROVIDERS: PCP Nurse Practitioner Family; Referring Provider Nurse Practitioner Family; Visit Provider Nurse Practitioner Family | DX: C50.412 Malignant neoplasm of upper-outer quadrant of left female breast (principal); Z17.0 Estrogen receptor positive status [ER+]; Z17.21 Progesterone receptor positive status; Z17.32 Human epidermal growth factor receptor 2 negative status; Z79.811 Long term (current) use of aromatase inhibitors; R91.8 Other nonspecific abnormal finding of lung field; D64.9 Anemia, unspecified; M81.0 Age-related osteoporosis without current pathological fracture; Z87.19 Personal history of other diseases of the digestive system | CPT/HCPCS: 99212; G0463 ==

== ENCOUNTER 2025-07-17 12:00 | Emergency (ER) | payer OTHER, SELFPAY ==
[2025-07-17] VITALS (14 sets, daily range): BP systolic 151–175; BP diastolic 54–98; PULSE 66–82; RESP 16–19; TEMP 36.6–37.3; O2SAT 95–99; BMI 47.8
--- NOTE | 2025-07-17 12:44 | PD.EDADULT ---
ED General RME/HPI General Chief complaint: General Adult/Misc Complain Stated complaint: NEED BLOOD TRANSFUSION Time Seen by Provider: 07/17/25 12:27 Arrival date/time: 07/17/25 12:00 RME / HPI RME / HPI narrative: See [facility] for Dr. Tripp's HPI documentation. Related Data Home Medications ?Medication ?Instructions ?Recorded ?Confirmed diltiazem HCl 240 mg 240 mg PO DAILY 05/14/22 02/08/25 capsule,extended release 24 hr letrozole 2.5 mg tablet (Femara) 2.5 tab PO QDAY 05/14/22 02/08/25 losartan 25 mg tablet 25 mg PO QDAY 05/06/24 02/08/25 Allergies Allergy/AdvReac Type Severity Reaction Status Date / Time No Known Allergies Allergy Verified 07/17/25 12:03 Review of Systems Review of Systems Systems Reviewed: All systems reviewed, normal except as documented Past Medical History Past Medical History CARDIAC: Positive Cardiac Disorders, Hypercholesterolemia and Hypertension RESPIRATORY: Positive Sleep Apnea GASTROINTESTINAL: Positive Gastrointestinal Disorders, Gastrointestinal Bleed and Obesity REPRODUCTIVE: Positive Breast Cancer (L breast) and Previous Pregnancies HEMATOLOGIC: Positive Blood Disorders and Anemia OTHER HISTORY: Positive Blood Transfusions, Chemotherapy, Radiation Therapy, Cancer and Breast Cancer (L breast) Family History FAMILY HISTORY: Positive Family Respiratory Disorders, Family Cardiac Disorders, Family Cancer and Family Surgery Surgical History SURGICAL: Positive Lumpectomy (L breast) Social History SMOKING STATUS: Never smoker SUBSTANCE USE: does not use ED Exam Narrative Physical exam: See [facility] for Dr. Tripp's physical exam documentation. Course Quality Measures none Orders Category Date Time Status Saline [Insert IV] NOW Care 07/17/25 14:13 Completed Transfuse,blood/blood products NOW Care 07/17/25 14:13 Completed Antibody Identification Stat Lab 07/17/25 14:23 Completed Bilirubin,Direct Stat Lab 07/17/25 13:17 Completed CBC Stat Lab 07/17/25 13:17 Completed CMP [Comprehensive Metabolic Panel] Stat Lab 07/17/25 13:17 Completed Magnesium Stat Lab 07/17/25 13:17 Completed PT [Prothrombin Time with INR] Stat Lab 07/17/25 13:17 Completed PTT [Partial Thromboplastin Time] Stat Lab 07/17/25 13:17 Completed TSH [Thyroid Stimulating Hormone] Stat Lab 07/17/25 13:17 Completed Type and Screen Stat Lab 07/17/25 14:23 Completed UA, C/S IF [Urinalysis, C/S if Indicated] Stat Lab 07/17/25 14:31 Completed prbc [Red Blood Cells] Stat Lab 07/17/25 14:23 Completed Acetaminophen Tab [Tylenol Tab] Med 07/17/25 14:14 Discontinued 650 mg PO X1 ONE DiphenhydrAMINE INJ [Benadryl Inj] Med 07/17/25 14:14 Discontinued 50 mg IVP X1 STA MethylPREDNISolone.* [SoluMEDROL Inj] Med 07/17/25 14:14 Discontinued 125 mg IM X1 ONE Ondansetron Inj [Zofran Inj] Med 07/17/25 14:14 Discontinued 4 mg IVP X1 ONE Vital Signs Vital signs: Vital Signs Temperature 98.3 F 07/17/25 12:22 Pulse Rate 74 07/17/25 12:22 Respiratory Rate 16 07/17/25 12:22 Blood Pressure 152/70 H 07/17/25 12:22 Pulse Oximetry (%) 98 07/17/25 12:22 Oxygen Delivery Method Room Air 07/17/25 12:22 Pulse ox is 98% on room air which is adequate. Discharge Plan Plan Patient Disposition: HOME (Self Care) Prescriptions/Referrals Prescriptions/Med Rec: No Action diltiazem HCl 240 mg capsule,extended release 24hr 240 mg PO DAILY letrozole [Femara] 2.5 mg tablet 2.5 tab PO QDAY losartan 25 mg tablet 25 mg PO QDAY Referrals: Mirian Park [employer] [Primary Care Provider] - In 1 week Problem List Clinical Impression: Severe anemia Patient/Caregiver Discharge Instructions Discharge Activity: activity as tolerated Education Materials: ED Anemia Type Not Specified Additional Instructions: Discharge Instructions from Dr. Tripp printed for you: 1. For your severely low blood count, you were given 2 units of blood. 2. Your body needs iron to make blood. So increase food rich in iron. Such as red meat and egg yolks and seaweed. 3. Continue care with your private doctors to find cause/treatment of your low blood counts needing frequent blood transfusions. Including bone marrow biopsy the day after tomorrow. 4. Seek immediate medical care with worsening or with any concerns. Instrucciones de regina del Dr. Tripp impresas para usted: 1. Debido a montez recuento sangu?reese gravemente bajo, se le transfundieron 2 unidades de lyubov. 2. Montez cuerpo necesita denilson para producir lyubov. Por lo tanto, aumente el consumo de alimentos ricos en denilson, amanda carne purnima, yemas de huevo y algas marinas. 3. Contin?e montez atenci?n m?dica con siva m?dicos particulares para determinar la causa y el tratamiento de montez bajo recuento sangu?reese, que requiere transfusiones frecuentes. [place] incluye nichelle biopsia de m?dula ?sea pasado ma?efrain. 4. Busque atenci?n m?dica inmediata si montez estado empeora o si tiene alguna inquietud. Print Language: French Stand Alone Forms: curated.by Award Info., Patient Portal Info Letter MDM Narrative MDM hospital course (for use when minimal MDM required): This section includes all my notes and documentations, including HPI, PE, and ED course. Osmar Tripp MD HPI: 69-year-old female here for possible anemia. Has needed blood transfusion for severe anemia multiple times. Bone marrow biopsy scheduled for the day after tomorrow. Reports fatigue and malaise. No chest pain. No other complaints. ROS: All negative except as documented in HPI. Physical Exam: General: Alert and oriented. Eyes: Conjunctivae and lids clear. ENT: No nasal congestion. Neck: Supple. Heart: RRR. Abdomen: Soft and nontender. Lungs: No respiratory distress. Skin: Warm and dry. Neuro: Alert and oriented X 3. I reviewed all diagnostic test results: Blood tests and urine tests unremarkable except Hgb 7.3. At this point, diagnoses include: Severe anemia Treatment here included: Blood transfusion (2 units of pRBC) She felt much better. Recommended more outpatient workup. Based on my best medical judgment, made decision no further evaluation or treatment indicated at this time. Patient understands and agrees to the discharge instructions customized and printed, see below. Discharge Instructions from Dr. Tripp printed for you: 1. For your severely low blood count, you were given 2 units of blood. 2. Your body needs iron to make blood. So increase food rich in iron. Such as red meat and egg yolks and seaweed. 3. Continue care with your private doctors to find cause/treatment of your low blood counts needing frequent blood transfusions. Including bone marrow biopsy the day after tomorrow. 4. Seek immediate medical care with worsening or with any concerns. Instrucciones de regina del Dr. Tripp impresas para usted: 1. Debido a montez recuento sangu?reese gravemente bajo, se le transfundieron 2 unidades de lyubov. 2. Montez cuerpo necesita denilson para producir lyubov. Por lo tanto, aumente el consumo de alimentos ricos en denilson, amanda carne purnima, yemas de huevo y algas marinas. 3. Contin?e montez atenci?n m?dica con siva m?dicos particulares para determinar la causa y el tratamiento de montez bajo recuento sangu?reese, que requiere transfusiones frecuentes. [place] incluye nichelle biopsia de m?dula ?sea pasado ma?efrain. 4. Busque atenci?n m?dica inmediata si montez estado empeora o si tiene alguna inquietud. Osmar Tripp MD Clinical Information Provided by: patient Medical Records reviewed [facility] Meds/Rx considered, not ordered None Labs/Rad/Tests considered, not ordered None Chronic Illness/Social Conditions which may negatively complicate care or outcome(s)-explain: None or not applicable EKG EKG not done Labs Labs: see narrative above Lab(s) Interpretation(s): I reviewed all diagnostic test results: Blood tests and urine tests unremarkable except Hgb 7.3. Imaging Imaging interpretation: none Medication Administration(s) none Medication Administration History Discontinued Medications Acetaminophen (Acetaminophen 325 Mg Tablet) 650 mg PO X1 ONE Stop: 07/17/25 14:15 Last Admin: 07/17/25 14:46 Dose: Not Given Documented By: NATALIE Non-Admin Reason: Cancelled by Provider Diphenhydramine HCl (Diphenhydramine Inj 50 Mg/Ml Vial) 50 mg IVP X1 STA Stop: 07/17/25 14:15 Last Admin: 07/17/25 14:46 Dose: Not Given Documented By: KM Non-Admin Reason: Cancelled by Provider Methylprednisolone Sodium Succinate (Methylprednisolone Sod Succ 62.5 Mg/Ml 2ml Vial) 125 mg IM X1 ONE Stop: 07/17/25 14:15 Last Admin: 07/17/25 14:46 Dose: Not Given Documented By: KM Non-Admin Reason: Cancelled by Provider Ondansetron HCl (Ondansetron Inj 2 Mg/Ml Inj 2 Ml) 4 mg IVP X1 ONE; Protocol Stop: 07/17/25 14:15 Last Admin: 07/17/25 14:46 Dose: Not Given Documented By: NATALIE Non-Admin Reason: Cancelled by Provider Treatment here included: Blood transfusion (2 units of pRBC) Diagnosis Differential Diagnosis ED Complaint MDM: Severe anemia Diagnoses ruled out and/or further discussions: Severe anemia
[2025-07-17 13:42] LABS: Basophils # (Auto) 0.1 Thou/mm3 (0.0-0.2); Basophils % (Auto) 2 % (0-2.5); Eosinophils # (Auto) 0.2 Thou/mm3 (0.0-0.5); Eosinophils % (Auto) 2 % (0-10); Hematocrit 25.2 % (36.0-46.0); Immature Granulocytes Auto 0.02 Thou/mm3 (0.00-0.00); Lymphocytes # (Auto) 1.8 Thou/mm3 (1.0-4.8); Lymphocytes % (Auto) 26 % (10-50); Mean Corpuscular HGB Conc 29.0 g/dl (31.0-37.0); Mean Corpuscular Hemoglobin 21.9 pg (25.0-35.0); Mean Corpuscular Volume 76 fL (80-100); Monocytes # (Auto) 0.6 Thou/mm3 (0.0-0.8); Monocytes % (Auto) 9 % (0-12); Neutrophils # (Auto) 4.4 Thou/mm3 (1.8-7.7); Neutrophils % (Auto) 62 % (37-80); Nucleated Red Blood Cell # 0.00 Thou/mm3 (0.00-0.00); Nucleated Red Blood Cell % 0 /100 WBC (0); Platelet Count 306 Thou/mm3 (140-440); RDW Standard Deviation 52.2 fL (36.4-46.3); Red Blood Count 3.33 Miln/mm3 (4.00-5.20); White Blood Count 7.1 Thou/mm3 (3.6-11.0)
[2025-07-17 13:48] LABS: Hemoglobin 7.3 g/dL (12.0-16.0)
[2025-07-17 13:56] LABS: INR 1.0 (0.9-1.3); Partial Thromboplastin Time 24.2 Seconds (22.0-36.0); Prothrombin Time 10.4 Seconds (9.0-12.2)
[2025-07-17 14:05] LABS: Alanine Aminotransferase 15 U/L (10-49); Albumin, Serum 4.2 gm/dL (3.4-4.8); Albumin/Globulin Ratio 1.9 (1.2-2.2); Alkaline Phosphatase 131 U/L (46-116); Anion Gap 10 (7-16); Aspartate Amino Transferase 22 U/L (0-34); BUN/Creatinine Ratio 20 Ratio (12-20); Bilirubin,Direct 0.2 mg/dL (0.0-0.3); Bilirubin,Total 0.5 mg/dL (0.3-1.2); Blood Urea Nitrogen 22 mg/dL (9-23); Calcium 9.5 mg/dL (8.3-10.6); Calcium (Corrected) 9.5 mg/dL (8.5-10.1); Carbon Dioxide 26.1 mMol/L (20.0-31.0); Chloride 109 mMol/L (98-107); Creatinine (Component) 1.1 mg/dL (0.6-1.3); Estimated Creatinine Clearance 51.8 mL/min (>60); Globulin 2.2 gm/dL (2.3-3.5); Glucose 139 mg/dL (74-106); Magnesium 1.9 mg/dL (1.6-2.6); Osmolality,Calculated 294 (275-295); Potassium 4.8 mMol/L (3.4-5.1); Sodium 145 mMol/L (136-145); Thyroid Stimulating Hormone 3.66 uIU/mL (0.55-4.78); Total Protein 6.4 gm/dL (5.7-8.2); eGFR 54 See Note
[2025-07-17 14:44] LABS: Collection Type, Urine Clean Catch
[2025-07-17 14:49] LABS: Bilirubin,Urine Negative (Negative); Blood,Urine Negative (Negative); Clarity,Urine Clear (Clear/Hazy); Color,Urine Yellow (Lt Yel-Yel); Culture Indicated,Urine Not Indicated; Glucose, Urine Negative (Negative); Hyaline Casts,Urine < 1 /hpf (0-1); Ketones,Urine Negative (Negative); Leukocyte Esterase,Urine Positive (Negative); Nitrite,Urine Negative (Negative); PH,Urine 5.5 (5.0-7.0); Protein,Urine Trace (Neg - Trace); RBC,Urine 3 /hpf (0-3); Specific Gravity,Urine 1.030 (1.001-1.035); Squamous Epithelial Cell,Urine < 1 /hpf (0-5); Urobilinogen,Urine 2.0 mg/dL (0.0-1.0); WBC,Urine 2 /hpf (0-5)
--- NOTE | 2025-07-17 14:50 | PC.NURSE ---
Patient to er sent by pmd for blood transfusion, patient has bone marrow biopsy scheduled for and per pmd states her count is too low, patient denies pain and denies bleeding, new orders received from dr. baig, consent for blood signed and placed on chart.
== END 2025-07-17 21:47 | disposition home or self-care (01) ==
LOC: SERX 12:29
PROVIDERS: Emergency Provider Emergency Medicine; PCP Nurse Practitioner Family
DX: D64.9 Anemia, unspecified (principal)
CPT/HCPCS: 36415; 80053; 81001; 82248; 82565; 83735; 84443; 84520; 85025; 85610; 85730; 86850; 86870; 86900; 86901; 86902; 86921; 86922; 99283; P9016

== ENCOUNTER 2025-07-19 07:28 | Outpatient (CLI) | payer OTHER, SELFPAY ==
[2025-07-17 15:38] VITALS: BMI 47.8
[2025-07-19] VITALS (11 sets, daily range): BP systolic 140–177; BP diastolic 50–98; PULSE 59–75; RESP 14–22; TEMP 36.2–36.7; O2SAT 92–100
--- NOTE | 2025-07-19 08:30 | XR_ITS ---
Examination: CT-guided percutaneous bone marrow aspiration left posterior superior iliac crest CT-guided percutaneous bone biopsy deep left posterior superior iliac crest Date and time of procedure: July 19, 2025, 0943 hours INDICATIONS: Diagnosis malignant neoplasm of upper-outer quadrant of left female breast Informed consent provided. A timeout was completed verifying correct patient, procedure, site and positioning. Technique: Axial 3 mm sections were obtained for localization of left posterior superior iliac crest Appropriate area is marked. The patient's site was prepped and draped in sterile fashion Maximal sterile barrier technique utilized, including hand hygiene Local anesthesia was obtained with 1% lidocaine. Low dose protocols were performed. One or more of the following dose reduction techniques were used; automated exposure control, adjustment of the mA and/or KV according to patient size, use of iterative reconstruction technique. Utilizing CT fluoroscopic guidance 14-gauge bone biopsy needle placed in the left posterior superior iliac crest 5 cc marrow aspirate obtained and 5 cm bone core obtained, specimens appear satisfactory Patient appears in stable condition during this procedure. At completion of the procedure, the patient is in satisfactory condition. Estimated blood loss 2 cc Complete pathology report to follow. Impression: Successful CT-guided percutaneous bone marrow aspiration left posterior superior iliac crest Successful CT-guided percutaneous bone biopsy deep left posterior superior iliac crest
--- NOTE | 2025-07-19 08:47 | PC.NURSE ---
per Chanel (lab staff), patient needs current CBC for today's procedure. 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
[2025-07-19 09:18] LABS: Flow Cytometry* See Sep Rpt
[2025-07-19 09:20] LABS: Basophils # (Auto) 0.1 Thou/mm3 (0.0-0.2); Basophils % (Auto) 2 % (0-2.5); Eosinophils # (Auto) 0.2 Thou/mm3 (0.0-0.5); Eosinophils % (Auto) 3 % (0-10); Hematocrit 29.5 % (36.0-46.0); Hemoglobin 9.2 g/dL (12.0-16.0); Immature Granulocytes Auto 0.01 Thou/mm3 (0.00-0.00); Lymphocytes # (Auto) 1.3 Thou/mm3 (1.0-4.8); Lymphocytes % (Auto) 25 % (10-50); Mean Corpuscular HGB Conc 31.2 g/dl (31.0-37.0); Mean Corpuscular Hemoglobin 24.2 pg (25.0-35.0); Mean Corpuscular Volume 78 fL (80-100); Monocytes # (Auto) 0.5 Thou/mm3 (0.0-0.8); Monocytes % (Auto) 9 % (0-12); Neutrophils # (Auto) 3.1 Thou/mm3 (1.8-7.7); Neutrophils % (Auto) 61 % (37-80); Nucleated Red Blood Cell # 0.00 Thou/mm3 (0.00-0.00); Nucleated Red Blood Cell % 0 /100 WBC (0); Platelet Count 241 Thou/mm3 (140-440); RDW Standard Deviation 53.6 fL (36.4-46.3); Red Blood Count 3.80 Miln/mm3 (4.00-5.20); White Blood Count 5.1 Thou/mm3 (3.6-11.0)
[2025-07-19] MEDS: fentaNYL CIT INJ 50 mCg/ML AMP 2ML 75 MCG IVP (09:36)
--- NOTE | 2025-07-19 10:59 | PC.NURSE ---
0955 patient is awake alert, breathing unlabored, s/p bone marrow biopsy and aspiration, dressing dry with no active bleeding, patient transferred to geoscience laboratory technician bay 4 for 1hr recovery. 1055 patient is awake, alert, breathing unlabored, dressing to lower back has small amount of serosanguionous drainage, no active bleeding noted, discharge instructions given to patient and , patient discharged home in wheelchair with all belongings including walker. pt educated on signs and symptoms to look for and report.
== END 2025-07-19 10:55 | disposition home or self-care (01) ==
PROVIDERS: Radiology Diagnostic Radiology; PCP Nurse Practitioner Family; Referring Provider Internal Medicine Hematology & Oncology; Visit Provider Internal Medicine Hematology & Oncology
DX: C50.412 Malignant neoplasm of upper-outer quadrant of left female breast (principal)
CPT/HCPCS: 20220; 36415; 77012; 85025; J3010

== ENCOUNTER 2025-08-21 10:59 | Emergency (ER) | payer OTHER, SELFPAY ==
[2025-08-21] VITALS (12 sets, daily range): BP systolic 145–171; BP diastolic 44–86; PULSE 68–86; RESP 13–22; TEMP 36.8–37.1; O2SAT 96–100; BMI 47.8
--- NOTE | 2025-08-21 11:36 | PD.EDRME ---
Rapid Medical Screening Exam RME Arrival date/time: 08/21/25 10:59 70-year-old female with a history of anemia, hypertension presents to the emergency room with a chief complaint of a hemoglobin of 6.3 I have greeted and performed a focused initial assessment of this patient. A comprehensive ED assessment and evaluation of the patient, analysis of all test results, and completion of the medical decision making process will be conducted by additional ED providers. Chief Complaint: General Adult/Misc Complain Time Seen by Provider: 08/21/25 11:31 Vital signs reviewed by provider: No Exam: GCS of 15 Clear bilateral lung sounds Clinical Impression: Anemia/GI bleed
[2025-08-21 12:04] LABS: Basophils # (Auto) 0.1 Thou/mm3 (0.0-0.2); Basophils % (Auto) 2 % (0-2.5); Eosinophils # (Auto) 0.1 Thou/mm3 (0.0-0.5); Eosinophils % (Auto) 2 % (0-10); Hematocrit 21.9 % (36.0-46.0); Immature Granulocytes Auto 0.01 Thou/mm3 (0.00-0.00); Lymphocytes # (Auto) 1.4 Thou/mm3 (1.0-4.8); Lymphocytes % (Auto) 29 % (10-50); Mean Corpuscular HGB Conc 29.2 g/dl (31.0-37.0); Mean Corpuscular Hemoglobin 21.8 pg (25.0-35.0); Mean Corpuscular Volume 75 fL (80-100); Monocytes # (Auto) 0.4 Thou/mm3 (0.0-0.8); Monocytes % (Auto) 8 % (0-12); Neutrophils # (Auto) 2.9 Thou/mm3 (1.8-7.7); Neutrophils % (Auto) 59 % (37-80); Nucleated Red Blood Cell # 0.00 Thou/mm3 (0.00-0.00); Nucleated Red Blood Cell % 0 /100 WBC (0); Platelet Count 226 Thou/mm3 (140-440); RDW Standard Deviation 47.7 fL (36.4-46.3); Red Blood Count 2.93 Miln/mm3 (4.00-5.20); White Blood Count 4.9 Thou/mm3 (3.6-11.0)
--- NOTE | 2025-08-21 12:08 | PC.NURSE ---
CALL FROM ELAINE IN LAB. PT'S HGB 6.4. NOTE PUT IN COMMENTS FOR PROVIDER.
[2025-08-21 12:09] LABS: INR 1.0 (0.9-1.3); Partial Thromboplastin Time 23.4 Seconds (22.0-36.0); Prothrombin Time 10.8 Seconds (9.0-12.2)
[2025-08-21 12:11] LABS: Hemoglobin 6.4 g/dL (12.0-16.0)
[2025-08-21 12:12] LABS: Alanine Aminotransferase 13 U/L (10-49); Albumin, Serum 3.6 gm/dL (3.4-4.8); Albumin/Globulin Ratio 1.2 (1.2-2.2); Alkaline Phosphatase 109 U/L (46-116); Anion Gap 11 (7-16); Aspartate Amino Transferase 22 U/L (0-34); BUN/Creatinine Ratio 17 Ratio (12-20); Bilirubin,Total 0.8 mg/dL (0.3-1.2); Blood Urea Nitrogen 19 mg/dL (9-23); Calcium 8.8 mg/dL (8.3-10.6); Calcium (Corrected) 9.1 mg/dL (8.5-10.1); Carbon Dioxide 24.2 mMol/L (20.0-31.0); Chloride 108 mMol/L (98-107); Creatinine (Component) 1.1 mg/dL (0.6-1.3); Estimated Creatinine Clearance 51.0 mL/min (>60); Globulin 2.9 gm/dL (2.3-3.5); Glucose 154 mg/dL (74-106); Osmolality,Calculated 290 (275-295); Potassium 4.5 mMol/L (3.4-5.1); Sodium 143 mMol/L (136-145); Total Protein 6.5 gm/dL (5.7-8.2); eGFR 54 See Note
--- NOTE | 2025-08-21 13:13 | PC.NURSE ---
DR. ANGEL INFORMED OF PT'S REQUEST FOR PAIN MED FOR 06/09 HEADACHE.
--- NOTE | 2025-08-21 14:57 | PD.EDADULT ---
ED General RME/HPI General Chief complaint: General Adult/Misc Complain Stated complaint: BLOOD TRANSFUSION, HGB 6.3 Time Seen by Provider: 08/21/25 11:31 Arrival date/time: 08/21/25 10:59 RME / HPI RME / HPI narrative: 08/21/25 10:59 70-year-old female with a history of anemia, hypertension presents to the emergency room with a chief complaint of a hemoglobin of 6.3 I have greeted and performed a focused initial assessment of this patient. A comprehensive ED assessment and evaluation of the patient, analysis of all test results, and completion of the medical decision making process will be conducted by additional ED providers. DR. ANGEL MAIN ED EVALUATION 70 year old female with history of left breast cancer s/p partial mastectomy and iron deficiency anemia requiring blood transfusions (last transfused 07/17/2025) presents to the ED for blood transfusion today. Patient reports she was notified by her game moderator that her hemoglobin was 6.3 and advised to come to the ED for blood transfusion. Patient reports associated global weakness, exertional dyspnea, and on/off palpitations. Patient reports this will be her 13th blood transfusion and [facility] States she has undergone EGD, colonoscopy, and numerous blood tests and it is unclear what is causing her anemia. Also states she underwent bone marrow biopsy here on 07/19/2025 and has an appointment on 09/06/2025 for results. No other associated symptoms or complaints reported. Denies fevers, chills, chest pain, bleeding gums, epistaxis, hematuria, melena, or hematochezia. Exam: GCS of 15 Clear bilateral lung sounds Impression: Anemia/GI bleed Related Data Home Medications ?Medication ?Instructions ?Recorded ?Confirmed diltiazem HCl 240 mg 240 mg PO DAILY 05/14/22 07/19/25 capsule,extended release 24 hr letrozole 2.5 mg tablet (Femara) 2.5 tab PO QDAY 05/14/22 07/19/25 losartan 25 mg tablet 25 mg PO QDAY 05/06/24 07/19/25 Allergies Allergy/AdvReac Type Severity Reaction Status Date / Time No Known Allergies Allergy Verified 08/21/25 11:01 Review of Systems Review of Systems Systems Reviewed: All systems reviewed, normal except as documented Past Medical History Past Medical History CARDIAC: Positive Cardiac Disorders, Hypercholesterolemia and Hypertension RESPIRATORY: Positive Sleep Apnea GASTROINTESTINAL: Positive Gastrointestinal Disorders, Gastrointestinal Bleed, Ulcer, Gastroesophageal Reflux Disease and Obesity REPRODUCTIVE: Positive Breast Cancer (left) and Previous Pregnancies HEMATOLOGIC: Positive Blood Disorders and Anemia OTHER HISTORY: Positive Blood Transfusions, Chemotherapy (2018 for left breast cancer), Radiation Therapy, Cancer and Breast Cancer (left) Family History FAMILY HISTORY: Positive Family Respiratory Disorders, Family Cardiac Disorders, Family Cancer and Family Surgery Surgical History SURGICAL: Positive Lumpectomy (left breast) Social History SMOKING STATUS: Never smoker SUBSTANCE USE: does not use ED Exam Narrative Physical exam: Constitutional: Awake, alert, elderly, obese, nontoxic, no acute distress, pale HEENT: Normocephalic, atraumatic, extraocular movements intact. Neck: Supple CV: Regular rate and rhythm. Lungs: Clear to auscultation BL, no respiratory distress. Abd: Soft, NT, ND, no HSM noted to palpation Extremities: No deformities, non pitting edema to bilateral lower extremities Neuro: AAOx3, no acute neuro deficit noted. Skin: Warm, dry, intact, pale Course Quality Measures none Orders Category Date Time Status Transfuse,blood/blood products ONCE Care 08/21/25 13:59 Active Antibody Identification Stat Lab 08/21/25 11:44 Results CBC Stat Lab 08/21/25 11:44 Completed CMP [Comprehensive Metabolic Panel] Stat Lab 08/21/25 11:44 Completed PT [Prothrombin Time with INR] Stat Lab 08/21/25 11:44 Completed PTT [Partial Thromboplastin Time] Stat Lab 08/21/25 11:44 Completed Type and Screen Stat Lab 08/21/25 11:44 Results prbc [Red Blood Cells] Stat Lab 08/21/25 11:44 Results Vital Signs Vital signs: Vital Signs Temperature 98.4 F 08/21/25 11:35 Pulse Rate 68 08/21/25 11:35 Respiratory Rate 17 08/21/25 11:35 Blood Pressure 145/69 H 08/21/25 11:35 Pulse Oximetry (%) 99 08/21/25 11:35 Oxygen Delivery Method Room Air 08/21/25 11:35 Pulse ox is 99% on room air which is adequate. Critical Care Time Critical Care Time Critical Care Time: Yes Total Critical Care Time (min.): 35 Attestation: The high probability of a clinically significant, sudden or life threatening deterioration required my full and direct attention, intervention and personal management. The aggregate critical care time was [35] minutes. This time is in addition to time spent performing reported procedures but includes the following: [x] Data Review and interpretation [x] Patient assessment and monitoring of vital signs [x] Documentation [x] Medication orders and management Discharge Plan Prescriptions/Referrals Prescriptions/Med Rec: No Action diltiazem HCl 240 mg capsule,extended release 24hr 240 mg PO DAILY letrozole [Femara] 2.5 mg tablet 2.5 tab PO QDAY losartan 25 mg tablet 25 mg PO QDAY Referrals: Mirian Park NP [Primary Care Provider] - In 1 week Problem List Clinical Impression: Anemia requiring transfusions Patient/Caregiver Discharge Instructions Additional Instructions: Some general health principles that can help you are the [employer] [place] principles: Nutrition (eat a plant-based diet, avoiding meats in general, avoiding highly processed foods) Exercise (Daily exercise/walks as tolerated) Water (Drink adequate fresh water to maintain hydration, concentrating on water rather than on soda, coffee, tea, juice, etc for hydration) [place] (Spend time - 15-20 minutes or so with skin exposed in the wholesale buyer and late evening sun for Vitamin D health benefits) [place] (Avoid alcohol, illicit drugs, caffeinated beverages, smoking, etc) Air (Deep breathing exercises in the early mornings in fresh air) Rest (Adequate rest at night, going to bed a few hours before midnight and avoiding all screens/television/loud music in the time right before going to bed, also avoiding heavy meals just prior to going to bed) Trust in God (Spend time daily in Bible study and prayer - health benefits in contemplation of God's true character) Additional resources that can benefit: [email or web address], look under resources and seminars. Another good website is www.[employer].org Print Language: Algerian MDM Narrative Sign Out note: 1800h: Care signed out to Dr. Tripp, pending completion of blood transfusion. MDM hospital course (for use when minimal MDM required): 70-year-old female coming in for blood transfusion. States that she has history of anemia chronically for which she has had extensive workup in the past including bone marrow biopsy and is under the care of hematology. Last transfusion was about a month ago and usually gets a transfusion every month. Hemoglobin today was 6.4. 2 units of PRBCs were ordered for transfusion with plan for discharge home after completion. I, Jacqui Lechuga, am scribing for and in the presence of Dr. Angel. Clinical Information Provided by: patient Medical Records reviewed [facility] Medical Records additional comments: I reviewed last ED visit on 07/17/2025 for anemia and during that time received 2 units of PRBC. Meds/Rx considered, not ordered None Labs/Rad/Tests considered, not ordered None Chronic Illness/Social Conditions which may negatively complicate care or outcome(s)-explain: Cancer EKG EKG not done Labs Labs: see narrative above Imaging Imaging interpretation: none Medication Administration(s) As noted above
--- NOTE | 2025-08-21 19:48 | PD.EDADDENDU ---
Emergency Room Addendum Addendum Narrative: I took over the care from previous shift physician, Dr. Durant, at _6PM_ on _08/21/25_. See previous notes for complete H & P and ED course. I reviewed all diagnostic test results. Diagnoses include: Severe anemia needing transfusion Treatment here included: 2 units of pRBC She felt much better. Based on my best medical judgment, made decision no further evaluation or treatment indicated at this time. Patient understands and agrees to the discharge instructions customized and printed, see below. Discharge Instructions from Dr. Tripp printed for you: 1. For your frequent episodes of severe anemia, you were treated with 2 units of blood transfusion. 2. Your body needs iron to make red blood cells. So increase food rich in iron. Such as red meat and egg yolks and seaweed. 3. Continue current care with your private doctors. 4. Seek immediate medical care with worsening or with any concerns. Osmar Tripp MD
== END 2025-08-21 22:31 | disposition home or self-care (01) ==
PROVIDERS: Nurse Practitioner Family; Emergency Provider Emergency Medicine; PCP Nurse Practitioner Family
DX: D64.9 Anemia, unspecified (principal)
CPT/HCPCS: 36415; 36430; 80053; 85014; 85018; 85025; 85610; 85730; 86850; 86870; 86900; 86901; 86902; 86921; 86922; 99283; P9016; P9040

== ENCOUNTER → 2025-08-21 | Outpatient (CLI) | payer OTHER, SELFPAY ==
[2025-08-21 09:48] LABS: Basophils # (Auto) 0.1 Thou/mm3 (0.0-0.2); Basophils % (Auto) 2 % (0-2.5); Eosinophils # (Auto) 0.1 Thou/mm3 (0.0-0.5); Eosinophils % (Auto) 3 % (0-10); Hematocrit 21.9 % (36.0-46.0); Immature Granulocytes Auto 0.01 Thou/mm3 (0.00-0.00); Lymphocytes # (Auto) 1.1 Thou/mm3 (1.0-4.8); Lymphocytes % (Auto) 28 % (10-50); Mean Corpuscular HGB Conc 28.8 g/dl (31.0-37.0); Mean Corpuscular Hemoglobin 21.5 pg (25.0-35.0); Mean Corpuscular Volume 75 fL (80-100); Monocytes # (Auto) 0.4 Thou/mm3 (0.0-0.8); Monocytes % (Auto) 9 % (0-12); Neutrophils # (Auto) 2.3 Thou/mm3 (1.8-7.7); Neutrophils % (Auto) 58 % (37-80); Nucleated Red Blood Cell # 0.00 Thou/mm3 (0.00-0.00); Nucleated Red Blood Cell % 0 /100 WBC (0); Platelet Count 218 Thou/mm3 (140-440); RDW Standard Deviation 47.9 fL (36.4-46.3); Red Blood Count 2.93 Miln/mm3 (4.00-5.20); White Blood Count 4.0 Thou/mm3 (3.6-11.0)
[2025-08-21 10:04] LABS: Alanine Aminotransferase 13 U/L (10-49); Albumin, Serum 3.7 gm/dL (3.4-4.8); Albumin/Globulin Ratio 1.4 (1.2-2.2); Alkaline Phosphatase 105 U/L (46-116); Anion Gap 9 (7-16); Aspartate Amino Transferase 21 U/L (0-34); BUN/Creatinine Ratio 21 Ratio (12-20); Bilirubin,Total 0.6 mg/dL (0.3-1.2); Blood Urea Nitrogen 21 mg/dL (9-23); Calcium 8.4 mg/dL (8.3-10.6); Calcium (Corrected) 8.6 mg/dL (8.5-10.1); Carbon Dioxide 25.1 mMol/L (20.0-31.0); Chloride 108 mMol/L (98-107); Creatinine (Component) 1.0 mg/dL (0.6-1.3); Globulin 2.7 gm/dL (2.3-3.5); Glucose 125 mg/dL (74-106); Osmolality,Calculated 287 (275-295); Potassium 4.4 mMol/L (3.4-5.1); Sodium 142 mMol/L (136-145); Total Protein 6.4 gm/dL (5.7-8.2); eGFR > 60 See Note
[2025-08-21 10:13] LABS: Hemoglobin 6.3 g/dL (12.0-16.0)
[2025-08-21 10:14] LABS: Ferritin 3 ng/mL (7.3-270.7); Folate 10.24 ng/mL (>5.38); Iron 11 mcg/dL (50-170); Percent Iron Saturation 3 % (20-55); Total Iron Binding Capacity 366 mcg/dL (250-425); Unsaturated Iron Binding 355 (225-295); Vitamin B12 785 pg/mL (211-911)
== END | disposition home or self-care (01) ==
LOC: SCTO 08:44
PROVIDERS: PCP Nurse Practitioner Family; Referring Provider Internal Medicine Hematology & Oncology; Visit Provider Internal Medicine Hematology & Oncology
DX: C50.412 Malignant neoplasm of upper-outer quadrant of left female breast (principal)
CPT/HCPCS: 36415; 80053; 82607; 82728; 82746; 83540; 83550; 85025